=== PATIENT | male | born 1940 | race Caucasian/White ===

== ENCOUNTER 2019-08-27 13:46 | Emergency (ER) | payer MEDICARE, OTHER, SELFPAY ==
[2019-08-27 13:46] VITALS: BP 156/91; PULSE 97; RESP 18; TEMP 36.5; O2SAT 93; BMI 31.3
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
[2019-08-27 15:53] VITALS: PULSE 86; RESP 14; O2SAT 99
== END 2019-08-27 15:53 | disposition home or self-care (01) ==
PROVIDERS: Emergency Provider Emergency Medicine; Family Provider Internal Medicine; PCP Internal Medicine
DX: T20.29XA Burn of second degree of multiple sites of head, face, and neck, initial encounter (principal); T23.261A Burn of second degree of back of right hand, initial encounter; T23.262A Burn of second degree of back of left hand, initial encounter; T31.0 Burns involving less than 10% of body surface; X08.8XXA Exposure to other specified smoke, fire and flames, initial encounter; Y93.89 Activity, other specified
CPT/HCPCS: 90471; 99282; J1670

== ENCOUNTER → 2020-04-21 09:47 | Outpatient (CLI) | payer MEDICARE, OTHER, SELFPAY ==
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
== END ==
PROVIDERS: PCP Internal Medicine; Referring Provider Internal Medicine; Visit Provider Internal Medicine
DX: M25.561 Pain in right knee (principal)
CPT/HCPCS: 76882

== ENCOUNTER 2020-12-08 11:12 | Outpatient (RCR) | payer MEDICARE, SELFPAY ==
[2020-07-08 08:41] VITALS: BMI 31.3
== END 2020-12-08 23:59 ==
LOC: IMMUN 11:12
PROVIDERS: PCP Internal Medicine; Visit Provider Family Medicine
DX: Z23 Encounter for immunization (principal)
CPT/HCPCS: 0011A; 0012A

== ENCOUNTER → 2021-01-19 08:00 | Outpatient (CLI) | payer MEDICARE, OTHER, SELFPAY ==
[2021-01-13 08:40] VITALS: BMI 31.3
[2021-01-19 12:25] LABS: Absolute Lymphocyte Count 1.82 X10^3/uL (0.83-4.51); Absolute Neutrophil Count 2.9 X10^3/uL (2.0-7.7); Basophil# 0.03 X10^3/uL; Basophil% 0.6 % (0-1); Eosinophil# 0.12 X10^3/uL; Eosinophils% 2.3 % (0-5); Hematocrit 43.4 % (40-54); Hemoglobin 13.7 g/dL (13.0-16.5); Lymphocyte # 1.82 X10^3/ul (4.0); Lymphocyte % 34.3 % (19-41); Mean Corp Hgb Conc 31.6 g/dL (32-36); Mean Corpuscular Hgb 29.3 pg (27.0-32.0); Mean Corpuscular Volume 92.9 fL (80-94); Mean Platelet Vol. 10.4 fl (6.2-12.0); Monocyte# 0.42 X10^3/uL; Monocyte% 7.9 % (0-10); NRBC Flagged by Analyzer 0 % (0-5); Neutrophil # 2.89 X10^3/uL (2.7-7.7); Neutrophil % 54.3 % (47-70); Platelet Count 233 K/mm3 (150-450); RBC Distribution Width CV 13.1 % (11.6-14.6); RBC Distribution Width SD 44.8 fl (35.1-43.9); Red Blood Count 4.67 M/mm3 (4.6-6.2); White Blood Count 5.3 K/mm3 (4.4-11.0)
[2021-01-19 12:55] LABS: ALB/GLOB Ratio 1.2 RATIO (0.9-2.4); AST(SGOT) 27 U/L (15-37); Alanine Aminotransfer ALT/SGPT 32 U/L (16-61); Albumin, Serum 3.7 g/dL (3.2-5.0); Alkaline Phosphatase 97 U/L (45-117); Anion Gap 7 (5-15); BUN 19 mg/dL (7-18); BUN/Creat Ratio 19.4 RATIO (10-20); Calcium,Total 8.7 mg/dL (8.5-10.1); Chloride 103 mmol/L (98-107); Cholesterol 179 mg/dL (200); Creatinine, Serum 0.98 mg/dL (0.70-1.30); EST Glomerular Filtration Rate 78 mL/min (>60); Est Glom Filt Rate - Afr Amer 95 mL/min (>60); Globulin 3.2 g/dL (2.2-4.2); Glucose 97 mg/dL (74-106); High Density Lipoprotein 64 mg/dL; PSA,Total - Annual Screen 1.48 ng/mL (0.00-4.00); Potassium 4.1 mmol/L (3.5-5.1); Protein, Total 6.9 g/dL (6.4-8.2); Sodium Level 137 mmol/L (136-145); Thyroid Stim Hormone (TSH) 1.38 uIU/mL (0.358-3.74); Triglycerides 66 mg/dL; Very Low Density Lipoprotein 13 mg/dL (5-40)
[2021-01-19 13:10] LABS: Vitamin D,25 Hydroxy 16.9 ng/mL
[2021-01-19 13:27] LABS: Hemoglobin A1c 5.6 % (3.8-5.6)
== END ==
PROVIDERS: PCP Internal Medicine; Visit Provider Internal Medicine
DX: E55.9 Vitamin D deficiency, unspecified (principal); I10 Essential (primary) hypertension; M17.12 Unilateral primary osteoarthritis, left knee; R73.9 Hyperglycemia, unspecified; Z12.5 Encounter for screening for malignant neoplasm of prostate
CPT/HCPCS: 36415; 80053; 80061; 82306; 83036; 84153; 84443; 85025; G0103

== ENCOUNTER 2021-12-15 09:46 | Outpatient (CLI) | payer MEDICARE, OTHER, SELFPAY ==
[2021-12-15 12:25] LABS: Absolute Lymphocyte Count 1.83 X10^3/uL (0.83-4.51); Absolute Neutrophil Count 3.2 X10^3/uL (2.0-7.7); Basophil# 0.04 X10^3/uL; Basophil% 0.7 % (0-1); Eosinophil# 0.25 X10^3/uL; Eosinophils% 4.3 % (0-5); Hemoglobin 13.3 g/dL (13.0-16.5); Lymphocyte # 1.83 X10^3/ul (0.83-4.51); Lymphocyte % 31.8 % (19-41); Mean Corp Hgb Conc 31.7 g/dL (32-36); Mean Corpuscular Hgb 29.2 pg (27.0-32.0); Mean Corpuscular Volume 92.3 fL (80-94); Mean Platelet Vol. 10.7 fl (6.2-12.0); Monocyte# 0.46 X10^3/uL; NRBC Flagged by Analyzer 0 % (0-5); Neutrophil # 3.15 X10^3/uL (2.7-7.7); Neutrophil % 54.7 % (47-70); Platelet Count 209 K/mm3 (150-450); RBC Distribution Width CV 12.6 % (11.6-14.6); RBC Distribution Width SD 43.3 fl (35.1-43.9); Red Blood Count 4.55 M/mm3 (4.6-6.2); White Blood Count 5.8 K/mm3 (4.4-11.0)
[2021-12-15 13:07] LABS: Vitamin D,25 Hydroxy 21.5 ng/mL
[2021-12-15 13:14] LABS: ALB/GLOB Ratio 1.2 RATIO (0.9-2.4); AST(SGOT) 20 U/L (15-37); Alanine Aminotransfer ALT/SGPT 25 U/L (16-61); Albumin, Serum 3.7 g/dL (3.2-5.0); Alkaline Phosphatase 96 U/L (45-117); Anion Gap 5 (5-15); BUN 23 mg/dL (7-18); Calcium,Total 8.6 mg/dL (8.5-10.1); Chloride 105 mmol/L (98-107); Cholesterol 156 mg/dL (200); Creatinine, Serum 0.96 mg/dL (0.70-1.30); EST Glomerular Filtration Rate 80 mL/min (>60); Est Glom Filt Rate - Afr Amer 97 mL/min (>60); Glucose 86 mg/dL (74-106); High Density Lipoprotein 53 mg/dL; Potassium 4.1 mmol/L (3.5-5.1); Protein, Total 6.7 g/dL (6.4-8.2); Sodium Level 138 mmol/L (136-145); Triglycerides 131 mg/dL; Very Low Density Lipoprotein 26 mg/dL (5-40)
== END 2021-12-15 23:59 | disposition home or self-care (01) ==
LOC: BIMLAB 09:47
PROVIDERS: PCP Internal Medicine; Referring Provider Internal Medicine; Visit Provider Internal Medicine
DX: E55.9 Vitamin D deficiency, unspecified (principal); I10 Essential (primary) hypertension
CPT/HCPCS: 36415; 80053; 80061; 82306; 85025

== ENCOUNTER 2022-01-06 12:41 | Outpatient (CLI) | payer MEDICARE, OTHER, SELFPAY ==
--- NOTE | 2022-01-06 12:42 | ECHOCS_ITS ---
Reason For Study: Pre Op Procedure This was a 2D Doppler, Color Flow transthoracic echocardiogram. The study was technically difficult. Contrast injection was performed. Bubble study performed. Exam performed in department. Left Ventricle Normal LV size. The estimated ejection fraction is 55 %. Stage 1 diastolic dysfunction. No regional wall motion abnormalities noted. Right Ventricle Normal RV size. Normal systolic function. Atria Normal left atrium. Normal right atrium. Mitral Valve Normal mitral valve. Tricuspid Valve Normal tricuspid valve. Aortic Valve Trisinus/trileaflet aortic valve. Mild focal aortic valve calcification. Peak aortic valve gradient 27 mmHg. Mean aortic valve gradient 13 mmHg. Mild (1+) aortic valve insufficiency. Pulmonic Valve Normal pulmonic valve. Great Vessels Mild to moderately dilated aortic root. The pulmonary artery is normal size. Normal inferior vena cava. Pericardium/Pleural No pericardial effusion. Medication 22 gauge I.V. with prn adaptor inserted into right arm. Diluted definity 3ml given slow IV push to enhance endocardial definition. Performed a rapid injection of agitated mix of 9 cc saline and 1cc air to assess for atrial septal defect. MMode/2D Measurements & Calculations LVIDd: 4.6 cm IVSd: 1.0 cm LVOT diam: 2.4 cm LVIDs: 3.3 cm LVPWd: 1.0 cm FS: 28.2 % LVOT area: 4.4 cm2 Ao root diam: 4.2 cm LAV(MOD-bp): 37.5 ml LA A4 area: 13.4 cm2 LAV(MOD-bp) Indexed: 18.0 ml/m2 LAV(MOD-sp2): 41.4 ml LAV(MOD-sp4): 29.3 ml RA A4 area: 15.6 cm2 Time Measurements MV dec time: 0.47 sec Doppler Measurements & Calculations MV E max rober: 46.1 cm/sec Lat Peak E' Rober: 7.6 cm/sec Med Peak E' Rober: 5.0 cm/sec MV A max rober: 82.7 cm/sec E/E' lat: 6.0 E/E' med: 9.1 MV E/A: 0.56 MV V2 max: 91.5 cm/sec MV P1/2t max rober: 68.6 cm/sec Ao V2 max: 258.9 cm/sec MV max P.3 mmHg MV P1/2t: 115.1 msec Ao max P.8 mmHg MV V2 mean: 48.8 cm/sec MV dec slope: 174.6 cm/sec2 Ao V2 mean: 166.6 cm/sec MV mean P.1 mmHg Ao mean P.8 mmHg MV V2 VTI: 33.4 cm MVA(P1/2t): 1.9 cm2 Ao V2 VTI: 57.5 cm MVA(VTI): 3.5 cm2 YESI(I,D): 2.0 cm2 YESI(V,D): 1.7 cm2 AI max rober: 364.7 cm/sec LV V1 max: 98.9 cm/sec SV(LVOT): 116.0 ml AI max P.3 mmHg LV V1 max P.9 mmHg AI dec slope: 178.5 cm/sec2 LV V1 mean P.0 mmHg AI P1/2t: 598.5 msec LV V1 mean: 66.2 cm/sec LV V1 VTI: 26.1 cm PA V2 max: 107.9 cm/sec ECHO/Echo Complete W/ Contrast Interpretation Summary Normal LV size. The estimated ejection fraction is 55 %. Stage 1 diastolic dysfunction. Mean aortic valve gradient 13 mmHg. Mild (1+) aortic valve insufficiency. Contrast injection was performed. Ordering Physician: Birgit Yanes Referring Physician: Birgit Yanes Performed By: Timothy Barnes RCS
== END 2022-01-06 23:59 | disposition home or self-care (01) ==
LOC: CVS 12:42
PROVIDERS: PCP Internal Medicine; Referring Provider Internal Medicine; Visit Provider Internal Medicine
DX: Z01.818 Encounter for other preprocedural examination (principal)
CPT/HCPCS: 93306; Q9957; A4216; C8929

== ENCOUNTER → 2022-02-26 | Outpatient (CLI) | payer MEDICARE, OTHER, SELFPAY ==
[2022-02-26 12:19] LABS: Absolute Lymphocyte Count 1.94 X10^3/uL (0.83-4.51); Basophil# 0.04 X10^3/uL; Basophil% 0.6 % (0-1); Color, Urine Yellow (Yellow); Eosinophils% 4.4 % (0-5); Glucose, Dipstick Normal (Normal); Hematocrit 42.7 % (40-54); Hemoglobin 13.8 g/dL (13.0-16.5); Ketone-Dipstick Negative (Negative); Leukocyte Esterase-Dipstick Negative /ul (Negative); Lymphocyte # 1.94 X10^3/ul (0.83-4.51); Lymphocyte % 28.2 % (19-41); Mean Corp Hgb Conc 32.3 g/dL (32-36); Mean Corpuscular Hgb 29.2 pg (27.0-32.0); Mean Corpuscular Volume 90.5 fL (80-94); Mean Platelet Vol. 10.3 fl (6.2-12.0); Monocyte% 8.7 % (0-10); NRBC Flagged by Analyzer 0 % (0-5); Neutrophil # 3.96 X10^3/uL (2.7-7.7); Neutrophil % 57.7 % (47-70); Nitrite-Dipstick Negative (Negative); Occult Blood-Urine Negative /ul (Negative); Platelet Count 201 K/mm3 (150-450); Protein-Dipstick Negative (Negative); RBC Distribution Width CV 12.6 % (11.6-14.6); RBC Distribution Width SD 41.8 fl (35.1-43.9); Red Blood Count 4.72 M/mm3 (4.6-6.2); Urine Bilirubin Dipstick Negative (Negative); Urine Clarity Clear (Clear); Urine Urobilinogen Normal (Normal); Urine pH 6.5 (5.0 - 8.0); White Blood Count 6.9 K/mm3 (4.4-11.0)
[2022-02-26 12:48] LABS: Anion Gap 6 (5-15); BUN 20 mg/dL (7-18); BUN/Creat Ratio 20.6 RATIO (10-20); Calcium,Total 8.9 mg/dL (8.5-10.1); Chloride 104 mmol/L (98-107); Creatinine, Serum 0.97 mg/dL (0.70-1.30); EST Glomerular Filtration Rate 79 mL/min (>60); Est Glom Filt Rate - Afr Amer 95 mL/min (>60); Glucose 104 mg/dL (74-106); Potassium 3.8 mmol/L (3.5-5.1); Sodium Level 137 mmol/L (136-145)
== END | disposition home or self-care (01) ==
LOC: MTLAB 10:56
PROVIDERS: PCP Internal Medicine; Referring Provider Physician Assistant Surgical; Visit Provider Physician Assistant Surgical
DX: Z01.818 Encounter for other preprocedural examination (principal)
CPT/HCPCS: 36415; 80048; 81002; 85025

== ENCOUNTER → 2022-03-12 | Outpatient (CLI) | payer MEDICARE, OTHER, SELFPAY ==
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
== END | disposition home or self-care (01) ==
PROVIDERS: PCP Internal Medicine; Visit Provider Orthopaedic Surgery
DX: M17.11 Unilateral primary osteoarthritis, right knee (principal)
CPT/HCPCS: 88305; 88311

== ENCOUNTER → 2022-08-12 | Outpatient (CLI) | payer MEDICARE, OTHER, SELFPAY ==
--- NOTE | 2022-08-12 09:25 | RAD_ITS ---
EXAM: XR CHEST, 2 VIEWS CLINICAL INDICATION: PRE PROCEDURE TECHNIQUE: Frontal and lateral views of the chest. This report was created using [employer] report generation technology. COMPARISON: None. FINDINGS: LUNGS AND PLEURAL SPACES: Suspect small calcified granuloma at the left upper lobe. No consolidation or edema. No pneumothorax. No effusion. HEART: Unremarkable. Cardiac silhouette not enlarged. MEDIASTINUM: Central airways and mediastinal contour are unremarkable. BONES/JOINTS: Degenerative changes of the spine. SOFT TISSUES: Unremarkable. VASCULATURE: Tortuous thoracic aorta versus distal thoracic aortic aneurysm. Recommend CT for further clarification. RAD/Chest PA and Lateral IMPRESSION: No acute findings in the chest. Tortuous thoracic aorta versus distal thoracic aortic aneurysm. Recommend CT for further clarification. Electronically Signed: Jai Rebolledo MD at 1:45 EDT ,
== END | disposition home or self-care (01) ==
LOC: PSN 09:21
PROVIDERS: PCP Internal Medicine; Visit Provider Orthopaedic Surgery
DX: Z01.811 Encounter for preprocedural respiratory examination (principal)
CPT/HCPCS: 71046; 93005

== ENCOUNTER 2022-09-02 11:22 | Emergency (ER) | payer MEDICARE, OTHER, SELFPAY ==
[2022-09-02 11:23] VITALS: BP 156/91; PULSE 77; RESP 18; TEMP 36.6; O2SAT 98; BMI 30.2
[2022-09-02 11:25] VITALS: BP 156/91; PULSE 77; RESP 18; TEMP 36.6; O2SAT 98
--- NOTE | 2022-09-02 11:39 | EKG12_ITS ---
Test Reason : WEAKNESS Blood Pressure : / mmHG Vent. Rate : 077 BPM Atrial Rate : 077 BPM P-R Int : 184 ms QRS Dur : 106 ms QT Int : 386 ms P-R-T Axes : 036 -31 056 degrees QTc Int : 436 ms Normal sinus rhythm Left axis deviation Abnormal ECG Confirmed by RADHA CHARLES, JAQUELIN ([id number]), content editor KAREN MEDINA ([id number]) on 09/06/2022 11:52:39 AM Referred By: Confirmed By:JAQUELIN GARCIA MD
--- NOTE | 2022-09-02 11:41 | CT_ITS ---
EXAM: CT ANGIOGRAPHY CHEST, ABDOMEN AND PELVIS WITH INTRAVENOUS CONTRAST CLINICAL INDICATION: chest pain. RECENT COVID TECHNIQUE: Helically acquired angiography images were obtained of the chest, abdomen and pelvis with intravenous contrast. This CT exam was performed using one or more of the following dose reduction techniques: automated exposure control, adjustment of the mA and/or kV according to patient size, and/or use of iterative reconstruction technique. This report was created using [employer] report generation technology. MIP reconstructed images were created and reviewed. CONTRAST: IV 75mL [id number] COMPARISON: None. FINDINGS: VASCULATURE: AORTA: Ascending thoracic aorta measures 4.5 cm in maximum diameter tapering to 2.9 cm diameter the descending thoracic aorta. No aortic dissection. PULMONARY ARTERIES: Normal. Normal in caliber. No obvious central pulmonary embolism although this study was not performed with the pulmonary embolism protocol. GREAT VESSELS OF AORTIC ARCH: Normal. Normal in caliber. No dissection. CELIAC TRUNK AND MESENTERIC ARTERIES: No acute findings. No occlusion or significant stenosis. No dissection. RENAL ARTERIES: No acute findings. No occlusion or significant stenosis. No dissection. ILIAC ARTERIES: No acute findings. No occlusion or significant stenosis. No dissection. CHEST: LUNGS AND PLEURAL SPACES: Normal. No mass. No consolidation or edema. No pleural effusion or thickening. No pneumothorax. HEART: Normal. Heart size is normal. No pericardial effusion. MEDIASTINUM: Normal. No mediastinal or hilar adenopathy. Esophagus is unremarkable. No hiatal hernia. THYROID: Normal. No thyroid lesions. ABDOMEN: LIVER: A 2 cm enhancing lesion within hepatic segment 6 suggestive of a hemangioma. GALLBLADDER AND BILE DUCTS: Pericholecystic fluid noted of uncertain significance. Correlate for clinical presentation of acute cholecystitis. No intra- or extrahepatic biliary ductal dilation. PANCREAS: Normal. No focal cystic or solid mass. SPLEEN: Normal. Normal size without focal cystic or solid mass. ADRENALS: Normal. No nodules. KIDNEYS AND URETERS: Normal. Normal renal size and position. No hydronephrosis. STOMACH AND BOWEL: 2 cm duodenal diverticulum is noted. Diverticulosis of the colon noted without evidence of acute diverticulitis. No stomach or bowel distention. PELVIS: APPENDIX: No evidence of acute appendicitis. BLADDER: Mild anterior wall thickening of the urinary bladder of uncertain significance. REPRODUCTIVE: Prostate gland is enlarged. CHEST, ABDOMEN and PELVIS: INTRAPERITONEAL SPACE: Normal. No ascites or other fluid collection. No free air. BONES/JOINTS: Normal. No suspicious lytic or blastic abnormality. SOFT TISSUES: Normal. No discrete abdominal or pelvic wall hernia. LYMPH NODES: Normal. No enlarged lymph nodes. CT/CTA Chst, Abd, Pel W and/or WO IMPRESSION: 1. 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 2. Pericholecystic fluid of uncertain significance. 3. Diverticulosis coli. 4. Prostatomegaly. 5. Additional nonemergent findings described above. Electronically Signed: Morgan Strickland MD at 13:31 EST ,
[2022-09-02 11:56] LABS: Absolute Lymphocyte Count 1.96 X10^3/uL (0.83-4.51); Absolute Neutrophil Count 6.3 X10^3/uL (2.0-7.7); Basophil# 0.03 X10^3/uL; Basophil% 0.3 % (0-1); Eosinophil# 0.08 X10^3/uL; Eosinophils% 0.8 % (0-5); Hemoglobin 13.5 g/dL (13.0-16.5); Lymphocyte # 1.96 X10^3/ul (0.83-4.51); Lymphocyte % 20.7 % (19-41); Mean Corp Hgb Conc 32.9 g/dL (32-36); Mean Platelet Vol. 9.9 fl (6.2-12.0); Monocyte# 0.98 X10^3/uL; Monocyte% 10.4 % (0-10); NRBC Flagged by Analyzer 0 % (0-5); Neutrophil # 6.28 X10^3/uL (2.7-7.7); Neutrophil % 66.5 % (47-70); Platelet Count 254 K/mm3 (150-450); RBC Distribution Width CV 12.8 % (11.6-14.6); RBC Distribution Width SD 41.1 fl (35.1-43.9); Red Blood Count 4.66 M/mm3 (4.6-6.2); White Blood Count 9.5 K/mm3 (4.4-11.0)
--- NOTE | 2022-09-02 12:00 | RAD_ITS ---
EXAM: XR CHEST, 1 VIEW CLINICAL INDICATION: chest pain TECHNIQUE: Frontal view of the chest. This report was created using [employer] report generation technology. COMPARISON: XR Chest dated 08/12/2022 FINDINGS: LUNGS AND PLEURAL SPACES: Linear atelectasis within the right middle lobe. Lungs are otherwise clear. No pneumothorax. No effusion. HEART: Normal heart size. MEDIASTINUM: No mediastinal or hilar mass. BONES/JOINTS: No acute abnormality. SOFT TISSUES: Normal. RAD/Chest 1 View (Portable) IMPRESSION: No acute cardiopulmonary abnormality. Electronically Signed: Morgan Strikcland MD at 12:28 EST ,
[2022-09-02 12:11] LABS: Anion Gap 8 (5-15); BUN 14 mg/dL (7-18); BUN/Creat Ratio 17.1 RATIO (10-20); Chloride 98 mmol/L (98-107); Creatinine, Serum 0.82 mg/dL (0.70-1.30); EST Glomerular Filtration Rate 96 mL/min (>60); Est Glom Filt Rate - Afr Amer 116 mL/min (>60); Estimated Creatinine Clearance 69.45 ml/min; Glucose 113 mg/dL (74-106); Potassium 4.1 mmol/L (3.5-5.1); Sodium Level 132 mmol/L (136-145); Troponin-I HS 9 pg/mL (3.0-78.0)
--- NOTE | 2022-09-02 12:25 | ED.VIS.CHEST ---
HPI History of Present Illness Chief Complaint: Weakness Narrative Narrative: 82-year-old male presenting with generalized weakness. He states he was recently treated with a full course of Paxlovid due to having COVID-19 with the onset about 10 days ago. He states he felt like he was getting better and after he finished the course he started to feel generally weak. He complains that he is tired. He is able to ambulate and get around. He has not any falls. He does not have any fevers, chills, body aches. He does not have any nausea or vomiting. He does state that he has had some chest tightness across the chest which feels like a dull ache. It does not feel like pressure or squeezing. It does not feel like sharp pleuritic pain. He is not coughing. He also states that sometimes when he is ambulating he feels short of breath. He has a home pulse oximeter which he states ranges from 91-98 at home. He states is while he sitting. He states that he recently had a chest x-ray as an outpatient in order to medically clear him for knee surgery through Dr. Michael Brandt and he was told there was something abnormal on it and is not sure what it was. He was supposed to follow-up with his PCP to have the CT scan prior to surgery and this is still pending. He does note that he is not have any cardiac issues in the past. He does have high blood pressure and takes amlodipine and lisinopril. [facility] Medical History COVID-19 Essential hypertension Hernia, inguinal, bilateral Home Medications aspirin 81 mg chewable tablet 40.5 mg PO DAILY 08/27/19 [History Last Taken Unknown] glucosamine sulfate 2KCl 1,000 mg tablet (Glucosamine Relief) 1,000 mg PO DAILY 07/08/20 [History Last Taken Unknown] turmeric 400 mg capsule mg PO 10/01/21 [History Last Taken Unknown] meloxicam 7.5 mg tablet 15 mg PO DAILY PRN Arthritis #60 tabs 10/16/21 [Rx Last Taken Unknown] amlodipine 5 mg tablet 5 mg PO DAILY #90 tabs 05/06/22 [Rx Last Taken Unknown] lisinopril 5 mg tablet 5 mg PO DAILY #90 tabs 05/06/22 [Rx Last Taken Unknown] nirmatrelvir 300 mg (150 mg x2)-ritonavir 100 mg tablet,dose pack(EUA) (Paxlovid) See Rx Instructions PO .COMPLEX #30 tabs 08/24/22 [Rx Last Taken Unknown] Allergy/AdvReac Type Severity Reaction Status Date / Time No Known Allergies Allergy Verified 09/02/22 11:23 Family History Mother Hypertension Father Cancer Brother Cancer Sister Hypertension Surgical History S/P appendectomy Social History Smoking Status: Former smoker quit date: 10/10/00 Tobacco: How many years used: 40 alcohol intake: current alcohol intake frequency: a few times a month substance use type: does not use ROS ROS ED Constitutional Constitutional ED: Reports other Details: Generalized weakness ; Denies chills or fever(s) Eyes Eyes: Denies blurry vision or change in vision ENT ENT ED: Denies rhinorrhea or sore throat Cardiovascular Cardiovascular: Reports as per HPI Respiratory/Chest Respiratory/Chest: Reports dyspnea and dyspnea on exertion; Denies cough Gastrointestinal Gastrointestinal: Denies abdominal pain, nausea or vomiting Genitourinary Genitourinary ED: Denies dysuria or hematuria Musculoskeletal Musculoskeletal: Denies arthralgias or myalgias Integumentary Denies abscess or Abrasions Neurologic Neurologic: Denies headache(s) or paresthesias Psychiatric Psychiatric: Denies depression EXAM Physical Exam Const Vital Signs: 09/02/22 11:23 09/02/22 11:25 09/02/22 11:25 Temperature 97.9 F 97.9 F Temperature Source Temporal Temporal Pulse Rate 77 77 Respiratory Rate 18 18 Respiratory Pattern Normal Blood Pressure 156/91 H 156/91 H Blood Pressure Mean 112 112 Pulse Ox 98 98 Oxygen Delivery Method Room Air Room Air 09/02/22 13:17 09/02/22 13:17 Temperature Temperature Source Pulse Rate 79 Respiratory Rate 16 Respiratory Pattern Blood Pressure 131/87 H Blood Pressure Mean 101 Pulse Ox 96 Oxygen Delivery Method Room Air Room Air MDM MDM MDM Narrative Medical decision making narrative: Patient presenting for follow-up after having COVID. He describes generalized weakness and some mild shortness of breath. He is no longer having fevers, chills. He is eating and drinking well. He is making normal urine and stool. He did report to me that he is been having some chest tightness for a couple of days which has been fairly constant. He describes it as a dull ache. No pressure or squeezing. No sharp pleuritic pain. He reported to me that he had an abnormal chest x-ray recently when he was sent for preop chest x-ray for clearance for his knee surgery. I reviewed the medical record and this showed that he had an aortic aneurysm and this is why he was to have a follow-up CT scan of his chest. Although he is having some chest pain today he is not having ripping tearing pain. He is not describing pain from a PE either. This is very mild and he requests nothing for pain. I obtain basic lab work and his CBC and BMP were unremarkable with exception of a sodium 132. His LFTs show a slight elevation in AST, ALT, alkaline phosphatase which is nonspecific. His bilirubin is normal. This possibly elevated due to having COVID recently. High-sensitivity troponin is 9 after having pain for couple of days. No believe needs a repeat troponin. I think clinically is low suspicion for having a PE, but since he has an aortic aneurysm I will obtain a CT of the chest abdomen pelvis which shows a 4.5 cm thoracic ascending aortic aneurysm. No evidence of infiltrate or PE. It does mention possible pericholecystic fluid however the patient not having any abdominal pain or right upper quadrant pain. I do not believe he needs an ultrasound. I spoke with Dr. Soni regarding this and he states the patient will likely not need any intervention unless this gets to about 5 to 5-1/2 cm. He states that he can follow-up with him to monitor this and get him to cardiothoracic surgery as needed in the future. Patient was amenable this. He was counseled on all findings. Impression: 1. Generalized weakness 2. 4.5 cm aortic aneurysm 3. Chest pain 4. Elevated LFTs Lab Data Attestation: I reviewed the patient's lab results. Labs: Laboratory Results - last 24 hr 09/02/22 09/02/22 09/02/22 11:48 11:48 13:40 WBC 9.5 RBC 4.66 Hgb 13.5 Hct 41.0 MCV 88.0 MCH 29.0 MCHC 32.9 RDW Std Deviation 41.1 RDW Coeff of Tracey 12.8 Plt Count 254 MPV 9.9 Immature Gran % (Auto) 1.300 H Neut % (Auto) 66.5 Lymph % (Auto) 20.7 Luce % (Auto) 10.4 H Eos % (Auto) 0.8 Baso % (Auto) 0.3 Absolute Neuts (auto) 6.3 Absolute Lymphs (auto) 1.96 Nucleated RBC % 0 Sodium 132 L Potassium 4.1 Chloride 98 Carbon Dioxide 26.0 Anion Gap 8 BUN 14 Creatinine 0.82 Estim Creat Clear Calc 69.45 Est GFR (MDRD) Af Amer 116 Est GFR (MDRD) Non-Af 96 BUN/Creatinine Ratio 17.1 Glucose 113 H Calcium 9.0 Total Bilirubin 0.50 Direct Bilirubin 0.26 AST 41 H ALT 65 H Alkaline Phosphatase 137 H Troponin I High Sens 9 Total Protein 6.6 Albumin 3.2 Globulin 3.4 Lipase 101 Radiography Diagnostic Testing: Clinical Impression(s) from Imaging Studies Chest/Abdomen/Pelvis CTA 09/02/22 11:41 IMPRESSION: 1. 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 2. Pericholecystic fluid of uncertain significance. 3. Diverticulosis coli. 4. Prostatomegaly. 5. Additional nonemergent findings described above. Electronically Signed: Morgan Strickland MD at 13:31 EST Reading Location ID and State: Counts include 234 beds at the [facility] / [place] Tel , Service support , Chest X-Ray 09/02/22 12:00 IMPRESSION: No acute cardiopulmonary abnormality. Electronically Signed: Morgan Strickland MD at 12:28 EST , Discharge Plan Triage Chief Complaint: Weakness ED Provider: Constantino Silva Dx/Rx/DC Orders Instructions: ED Chest Pain, Noncardiac, ED Weakness (Uncertain Cause), Aneurisma de aorta tor?cica Prescriptions: No Action glucosamine sulfate 2KCl [Glucosamine Relief] 1,000 mg tablet 1,000 mg PO DAILY Rx Instructions: administer with meals turmeric 400 mg capsule PO Paxlovid (EUA) 300 mg (150 mg x 2)-100 mg tablets,dose pack See Rx Instructions PO .COMPLEX Qty: 30 0RF Rx Instructions: take TWO 150 mg tablets of nirmatrelvir with ONE 100 mg tablet of ritonavir twice daily for 5 days PO aspirin 81 MG tablet,chewable 40.5 mg PO DAILY meloxicam 7.5 mg tablet 15 mg PO DAILY PRN (Reason: Arthritis) Qty: 60 1RF lisinopril 5 mg tablet 5 mg PO DAILY Qty: 90 3RF amlodipine 5 mg tablet 5 mg PO DAILY Qty: 90 3RF Primary Care Provider: Birgit Yanes Referrals: Colin Soni MD [Med Staff - Active Staff] - 3-5 Days Birgit Yanes MD [Primary Care Provider] - Disposition Disposition: Home, Self Care
[2022-09-02 12:43] VITALS: O2SAT 100
[2022-09-02 13:17] VITALS: BP 131/87; PULSE 79; RESP 16; O2SAT 96
[2022-09-02 14:03] LABS: AST(SGOT) 41 U/L (15-37); Alanine Aminotransfer ALT/SGPT 65 U/L (16-61); Albumin, Serum 3.2 g/dL (3.2-5.0); Alkaline Phosphatase 137 U/L (45-117); Bilirubin, Direct 0.26 mg/dL (0.00-0.30); Globulin 3.4 g/dL (2.2-4.2); Lipase 101 U/L (73-393); Protein, Total 6.6 g/dL (6.4-8.2)
[2022-09-02 15:00] VITALS: BP 127/72; PULSE 74; RESP 20; O2SAT 95
== END 2022-09-02 15:10 | disposition home or self-care (01) ==
PROVIDERS: Emergency Provider Student in an Organized Health Care Education/Training Program; PCP Internal Medicine; Visit Provider Student in an Organized Health Care Education/Training Program
DX: R53.1 Weakness (principal); I71.21 Aneurysm of the ascending aorta, without rupture; R07.9 Chest pain, unspecified; R79.89 Other specified abnormal findings of blood chemistry; Z86.16 Personal history of COVID-19; Z87.891 Personal history of nicotine dependence
CPT/HCPCS: 71045; 71275; 74174; 80048; 80076; 83690; 84484; 85025; 93005; 99284; Q9967; A4216

== ENCOUNTER → 2022-09-08 | Outpatient (CLI) | payer MEDICARE, OTHER, SELFPAY ==
[2022-09-08 16:50] LABS: Absolute Lymphocyte Count 2.63 X10^3/uL (0.83-4.51); Absolute Neutrophil Count 4.5 X10^3/uL (2.0-7.7); Basophil# 0.06 X10^3/uL; Basophil% 0.7 % (0-1); Eosinophil# 0.21 X10^3/uL; Eosinophils% 2.5 % (0-5); Hematocrit 43.8 % (40-54); Hemoglobin 13.8 g/dL (13.0-16.5); Lymphocyte # 2.63 X10^3/ul (0.83-4.51); Lymphocyte % 31.8 % (19-41); Mean Corp Hgb Conc 31.5 g/dL (32-36); Mean Corpuscular Hgb 28.5 pg (27.0-32.0); Mean Corpuscular Volume 90.3 fL (80-94); Mean Platelet Vol. 9.7 fl (6.2-12.0); Monocyte# 0.75 X10^3/uL; Monocyte% 9.1 % (0-10); NRBC Flagged by Analyzer 0 % (0-5); Neutrophil % 54.6 % (47-70); Platelet Count 356 K/mm3 (150-450); RBC Distribution Width CV 12.8 % (11.6-14.6); RBC Distribution Width SD 42.1 fl (35.1-43.9); Red Blood Count 4.85 M/mm3 (4.6-6.2); White Blood Count 8.3 K/mm3 (4.4-11.0)
[2022-09-08 17:41] LABS: Vitamin D,25 Hydroxy 35.1 ng/mL
[2022-09-08 17:58] LABS: ALB/GLOB Ratio 1.2 RATIO (0.9-2.4); AST(SGOT) 27 U/L (15-37); Alanine Aminotransfer ALT/SGPT 57 U/L (16-61); Albumin, Serum 3.8 g/dL (3.2-5.0); Alkaline Phosphatase 139 U/L (45-117); Anion Gap 8 (5-15); BUN 19 mg/dL (7-18); BUN/Creat Ratio 20.9 RATIO (10-20); Calcium,Total 8.7 mg/dL (8.5-10.1); Chloride 100 mmol/L (98-107); Creatinine, Serum 0.91 mg/dL (0.70-1.30); EST Glomerular Filtration Rate 85 mL/min (>60); Est Glom Filt Rate - Afr Amer 102 mL/min (>60); Globulin 3.3 g/dL (2.2-4.2); Glucose 104 mg/dL (74-106); Potassium 4.1 mmol/L (3.5-5.1); Protein, Total 7.1 g/dL (6.4-8.2); Sodium Level 135 mmol/L (136-145); Thyroid Stim Hormone (TSH) 1.59 uIU/mL (0.358-3.74)
== END | disposition home or self-care (01) ==
LOC: LAB 16:10
PROVIDERS: PCP Internal Medicine; Visit Provider Internal Medicine
DX: E55.9 Vitamin D deficiency, unspecified (principal); I10 Essential (primary) hypertension; R79.89 Other specified abnormal findings of blood chemistry; Z12.5 Encounter for screening for malignant neoplasm of prostate
CPT/HCPCS: 36415; 80053; 82306; 84153; 84443; 85025; G0103

== ENCOUNTER → 2022-09-18 | Outpatient (CLI) | payer MEDICARE, OTHER, SELFPAY ==
[2022-09-16 12:18] LABS: Bacteria 0 SEEN /hpf (None Seen); Mucous, Urine 0 SEEN /hpf (<or=2+); Red Blood Cells-Urine 0 SEEN /hpf (0-5); White Blood Cells 0 SEEN /hpf (0-5)
[2022-09-16 12:55] LABS: Color, Urine Yellow (Yellow); Glucose, Dipstick Normal (Normal); Ketone-Dipstick Negative (Negative); Leukocyte Esterase-Dipstick Negative /ul (Negative); Nitrite-Dipstick Negative (Negative); Occult Blood-Urine Negative /ul (Negative); Protein-Dipstick Negative (Negative); Specific Gravity, Urine 1.015 (1.002-1.030); Urine Bilirubin Dipstick Negative (Negative); Urine Clarity Clear (Clear); Urine Urobilinogen Normal (Normal)
[2022-09-16 13:05] LABS: Squamous Epithelial Cells - UA 0-5 SEEN /hpf (0-5)
--- NOTE | 2022-09-18 11:16 | US_ITS ---
INDICATION: Bladder wall thickening EXAMINATION: Ultrasound US Kidney(s) complete TECHNIQUE: Chapman scale and color doppler images were obtained of the kidneys. COMPARISON: None. FINDINGS: RIGHT KIDNEY: 11.6 x 5.8 x 6.1 cm. The renal cortex measures 1.6 cm. There is no hydronephrosis. No shadowing calculus, focal lesion or perinephric collection is demonstrated. LEFT KIDNEY: 11.1 x 5.9 x 5.9 cm. The renal cortex measures 1.5 cm. There is no hydronephrosis. No shadowing calculus, focal lesion or perinephric collection is demonstrated. URINARY BLADDER: The calculated prevoid bladder volume is 135 cc. The bladder wall measures about 2 mm. Suboptimal evaluation of the bladder wall due to the distended bladder. ADDITIONAL FINDINGS: Prominent heterogeneous prostate with an estimated volume of 43 cc. Correlation with PSA level is recommended. Incidental finding is 0.1 cm cyst in the right lobe of the liver. US/Kidney and Bladder IMPRESSION: 1. No evidence of hydronephrosis. 2. Prominent prostate. 3. Small liver cyst. Electronically Signed: Bill Burger MD at 14:27 EST ,
== END | disposition home or self-care (01) ==
LOC: US 11:13
PROVIDERS: PCP Internal Medicine; Referring Provider Internal Medicine; Visit Provider Internal Medicine
DX: N32.89 Other specified disorders of bladder (principal)
CPT/HCPCS: 76770; 81001

== ENCOUNTER → 2022-12-02 | Outpatient (CLI) | payer MEDICARE, OTHER, SELFPAY ==
[2022-12-02 08:55] LABS: Absolute Lymphocyte Count 2.07 X10^3/uL (0.83-4.51); Basophil# 0.03 X10^3/uL; Basophil% 0.5 % (0-1); Eosinophil# 0.18 X10^3/uL; Eosinophils% 3.1 % (0-5); Hematocrit 42.6 % (40-54); Hemoglobin 13.7 g/dL (13.0-16.5); Lymphocyte # 2.07 X10^3/ul (0.83-4.51); Lymphocyte % 35.8 % (19-41); Mean Corp Hgb Conc 32.2 g/dL (32-36); Mean Corpuscular Volume 90.1 fL (80-94); Mean Platelet Vol. 10.2 fl (6.2-12.0); Monocyte# 0.51 X10^3/uL; Monocyte% 8.8 % (0-10); NRBC Flagged by Analyzer 0 % (0-5); Neutrophil # 2.97 X10^3/uL (2.7-7.7); Neutrophil % 51.5 % (47-70); Platelet Count 197 K/mm3 (150-450); RBC Distribution Width CV 13.1 % (11.6-14.6); Red Blood Count 4.73 M/mm3 (4.6-6.2); White Blood Count 5.8 K/mm3 (4.4-11.0)
[2022-12-02 08:58] LABS: Anion Gap 6 (5-15); BUN 20 mg/dL (7-18); Calcium,Total 8.9 mg/dL (8.5-10.1); Chloride 103 mmol/L (98-107); EST Glomerular Filtration Rate 76 mL/min (>60); Est Glom Filt Rate - Afr Amer 92 mL/min (>60); Glucose 109 mg/dL (74-106); Potassium 3.9 mmol/L (3.5-5.1); Sodium Level 137 mmol/L (136-145)
[2022-12-07 08:29] LABS: Hemoglobin A1c 5.5 % (3.8-5.6)
== END | disposition home or self-care (01) ==
LOC: LAB 07:23
PROVIDERS: PCP Internal Medicine; Referring Provider Physician Assistant; Visit Provider Physician Assistant
DX: Z01.818 Encounter for other preprocedural examination (principal); I10 Essential (primary) hypertension; R73.09 Other abnormal glucose
CPT/HCPCS: 36415; 80048; 83036; 85025

== ENCOUNTER → 2022-12-21 | Outpatient (CLI) | payer MEDICARE, OTHER, SELFPAY ==
--- NOTE | 2022-12-21 | KNEE_PTH ---
PATIENT: ALEXANDRIA MERIDA LOC: [facility] U#:[id number] AGE/SX: 82/M ROOM: RE12/21/[address]: Dr. Michael Brandt MD : 1940 BED: DIS: 12/21/2022 SPEC #: [id number] RECD: 12/21/22 14:47 STATUS: TEENA SON #: [id number] JADA: 12/21/22 00:[address]: Michael Brandt DEPT: SURGICAL PATHOLOGY RECD BY: Harvey Tapia ENTERED: 12/22/22 08:00 SP TYPE: TOTAL KNEE OTHR DR: Dr. Birgit Yanes MD [facility] Tissues: Knee, NOS Procedures: Decalcification bone/plaque Surgery Specimen Level IV HEADER OPERATION: Total left knee arthroplasty PRE-OP DIAGNOSIS: Left knee grade 4 post-traumatic arthritis TISSUE SUBMITTED: Left knee bone and tissue MICROSCOPIC DIAGNOSIS Bone and tissue, left knee, total knee replacement/resection: Pieces of bone with degenerative osteoarthritic changes. Fibroadipose tissue, fibroconnective tissue and reactive synovial tissue. Focal changes consistent with pseudogout. CHRISTIN:clarita 12/27/2022 MICROSCOPIC DESCRIPTION Slides are reviewed. GROSS DESCRIPTION Received is one container designated bone and soft tissue left knee. The specimen consists of multiple fragments of baez-yellow bone measuring in aggregate 11.0 x 10.0 x 3.5 cm. Also in the specimen container are multiple fragments of yellow-white soft tissue measuring in aggregate 8.0 x 8.0 x 2.5 cm. A few of the soft tissue fragments also show chalky, white deposits. A number of bony fragments contain articular surfaces consistent with tibial plateau and femoral condyle and displaying prominent osteophyte formation, eburnation and bone erosion. Invisible Braces Orthodontist sections are submitted in two cassettes as follows: 1 - soft tissue, 2 - bone after decalcification. / CHRISTIN:clarita 12/22/2022 TC:5 CPT: 58693, 24137
== END | disposition home or self-care (01) ==
LOC: LABSPEC 15:04
PROVIDERS: PCP Internal Medicine; Visit Provider Orthopaedic Surgery
DX: M17.12 Unilateral primary osteoarthritis, left knee (principal)
CPT/HCPCS: 88305; 88311

== ENCOUNTER → 2023-11-22 | Outpatient (CLI) | payer MEDICARE, OTHER, SELFPAY ==
[2023-11-22 13:54] LABS: Bacteria 0 SEEN /hpf (None Seen); Mucous, Urine 0 SEEN /hpf (<or=2+); Red Blood Cells-Urine 0 SEEN /hpf (0-5); Squamous Epithelial Cells - UA 0 SEEN /hpf (0-5); White Blood Cells 0 SEEN /hpf (0-5)
[2023-11-22 15:05] LABS: Color, Urine Yellow (Yellow); Glucose, Dipstick Normal (Normal); Ketone-Dipstick Negative (Negative); Leukocyte Esterase-Dipstick Negative /ul (Negative); Nitrite-Dipstick Negative (Negative); Occult Blood-Urine Negative /ul (Negative); Protein-Dipstick Negative (Negative); Urine Bilirubin Dipstick Negative (Negative); Urine Clarity Clear (Clear); Urine Urobilinogen Normal (Normal)
[2023-11-22 15:15] LABS: Absolute Lymphocyte Count 1.69 X10^3/uL (0.83-4.51); Absolute Neutrophil Count 3.7 X10^3/uL (2.0-7.7); Basophil# 0.05 X10^3/uL; Basophil% 0.8 % (0-1); Eosinophil# 0.13 X10^3/uL; Eosinophils% 2.2 % (0-5); Hematocrit 44.9 % (40-54); Hemoglobin 14.7 g/dL (13.0-16.5); Lymphocyte # 1.69 X10^3/ul (0.83-4.51); Lymphocyte % 28.5 % (19-41); Mean Corp Hgb Conc 32.7 g/dL (32-36); Mean Corpuscular Hgb 29.2 pg (27.0-32.0); Mean Corpuscular Volume 89.1 fL (80-94); Mean Platelet Vol. 10.3 fl (6.2-12.0); Monocyte# 0.38 X10^3/uL; Monocyte% 6.4 % (0-10); NRBC Flagged by Analyzer 0 % (0-5); Neutrophil # 3.67 X10^3/uL (2.7-7.7); Neutrophil % 61.9 % (47-70); Platelet Count 230 K/mm3 (150-450); RBC Distribution Width CV 13.9 % (11.6-14.6); RBC Distribution Width SD 45.1 fl (35.1-43.9); Red Blood Count 5.04 M/mm3 (4.6-6.2); White Blood Count 5.9 K/mm3 (4.4-11.0)
[2023-11-22 15:23] LABS: Vitamin D,25 Hydroxy 41.5 ng/mL
[2023-11-22 15:31] LABS: ALB/GLOB Ratio 1.2 RATIO (0.9-2.4); AST(SGOT) 34 U/L (15-37); Alanine Aminotransfer ALT/SGPT 37 U/L (16-61); Albumin, Serum 4.1 g/dL (3.2-5.0); Alkaline Phosphatase 121 U/L (45-117); Anion Gap 7 (5-15); BUN 17 mg/dL (7-18); BUN/Creat Ratio 20.9 RATIO (10-20); Calcium,Total 9.1 mg/dL (8.5-10.1); Chloride 106 mmol/L (98-107); Cholesterol 186 mg/dL (200); Creatinine, Serum 0.81 mg/dL (0.70-1.30); EST Glomerular Filtration Rate 96 mL/min (>60); Est Glom Filt Rate - Afr Amer 116 mL/min (>60); Globulin 3.3 g/dL (2.2-4.2); Glucose 114 mg/dL (74-106); High Density Lipoprotein 79 mg/dL; Magnesium 2.4 mg/dL (1.6-2.6); Potassium 3.8 mmol/L (3.5-5.1); Protein, Total 7.4 g/dL (6.4-8.2); Sodium Level 137 mmol/L (136-145); Thyroid Stim Hormone (TSH) 1.36 uIU/mL (0.358-3.74); Triglycerides 137 mg/dL; Very Low Density Lipoprotein 27 mg/dL (5-40)
[2023-11-24 09:24] LABS: Hemoglobin A1c 5.8 % (3.8-5.6)
== END | disposition home or self-care (01) ==
LOC: MFPLAB 11:54
PROVIDERS: PCP Internal Medicine; Visit Provider Family Medicine
DX: R73.09 Other abnormal glucose (principal); E55.9 Vitamin D deficiency, unspecified; I10 Essential (primary) hypertension
CPT/HCPCS: 36415; 80053; 80061; 81001; 82306; 83036; 83735; 84443; 85025

== ENCOUNTER → 2024-03-22 | Outpatient (CLI) | payer MEDICARE, OTHER, SELFPAY ==
[2024-03-22 10:22] LABS: Bacteria 0 SEEN /hpf (None Seen); Mucous, Urine 0 SEEN /hpf (<or=2+); Red Blood Cells-Urine 0 SEEN /hpf (0-5); Squamous Epithelial Cells - UA 0 SEEN /hpf (0-5); White Blood Cells 0 SEEN /hpf (0-5)
[2024-03-22 12:09] LABS: Absolute Lymphocyte Count 2.24 X10^3/uL (0.83-4.51); Absolute Neutrophil Count 3.3 X10^3/uL (2.0-7.7); Basophil# 0.05 X10^3/uL; Basophil% 0.8 % (0-1); Eosinophils% 1.6 % (0-5); Hematocrit 42.4 % (40-54); Hemoglobin 13.8 g/dL (13.0-16.5); Lymphocyte # 2.24 X10^3/ul (0.83-4.51); Lymphocyte % 35.5 % (19-41); Mean Corp Hgb Conc 32.5 g/dL (32-36); Mean Corpuscular Hgb 29.1 pg (27.0-32.0); Mean Corpuscular Volume 89.3 fL (80-94); Mean Platelet Vol. 10.3 fl (6.2-12.0); Monocyte# 0.59 X10^3/uL; Monocyte% 9.4 % (0-10); NRBC Flagged by Analyzer 0 % (0-5); Neutrophil # 3.29 X10^3/uL (2.7-7.7); Neutrophil % 52.1 % (47-70); Platelet Count 235 K/mm3 (150-450); RBC Distribution Width CV 13.2 % (11.6-14.6); RBC Distribution Width SD 43.5 fl (35.1-43.9); Red Blood Count 4.75 M/mm3 (4.6-6.2); White Blood Count 6.3 K/mm3 (4.4-11.0)
[2024-03-22 12:25] LABS: Color, Urine Straw (Yellow); Glucose, Dipstick Normal (Normal); Ketone-Dipstick Negative (Negative); Leukocyte Esterase-Dipstick Negative /ul (Negative); Nitrite-Dipstick Negative (Negative); Occult Blood-Urine Negative /ul (Negative); Protein-Dipstick Negative (Negative); Specific Gravity, Urine 1.005 (1.002-1.030); Urine Bilirubin Dipstick Negative (Negative); Urine Clarity Clear (Clear); Urine Urobilinogen Normal (Normal)
[2024-03-22 12:53] LABS: Vitamin D,25 Hydroxy 40.3 ng/mL
[2024-03-22 14:55] LABS: ALB/GLOB Ratio 1.4 RATIO (0.9-2.4); AST(SGOT) 32 U/L (15-37); Alanine Aminotransfer ALT/SGPT 28 U/L (16-61); Alkaline Phosphatase 120 U/L (45-117); Anion Gap 7 (5-15); BUN 14 mg/dL (7-18); BUN/Creat Ratio 16.6 RATIO (10-20); Chloride 105 mmol/L (98-107); Cholesterol 180 mg/dL (200); Creatinine, Serum 0.84 mg/dL (0.70-1.30); EST Glomerular Filtration Rate 92 mL/min (>60); Est Glom Filt Rate - Afr Amer 112 mL/min (>60); Globulin 2.8 g/dL (2.2-4.2); Glucose 115 mg/dL (74-106); High Density Lipoprotein 66 mg/dL; Potassium 3.8 mmol/L (3.5-5.1); Protein, Total 6.8 g/dL (6.4-8.2); Sodium Level 136 mmol/L (136-145); Triglycerides 106 mg/dL; Very Low Density Lipoprotein 21 mg/dL (5-40)
[2024-03-22 15:40] LABS: Hemoglobin A1c 5.7 % (3.8-5.6)
== END | disposition home or self-care (01) ==
LOC: MFPLAB 10:17
PROVIDERS: PCP Family Medicine; Visit Provider Family Medicine
DX: I10 Essential (primary) hypertension (principal); R73.02 Impaired glucose tolerance (oral); E55.9 Vitamin D deficiency, unspecified
CPT/HCPCS: 36415; 80053; 80061; 81001; 82306; 83036; 85025

== ENCOUNTER → 2024-04-02 | Outpatient (CLI) | payer MEDICARE, OTHER, SELFPAY ==
--- NOTE | 2024-04-02 16:04 | US_ITS ---
STUDY: ULTRASOUND - URINARY BLADDER REASON FOR EXAM: Male, 83 years old. bph with obstruction TECHNIQUE: Ultrasound evaluation of the urinary bladder was performed with real-time and static cook-scale imaging. COMPARISON: None. FINDINGS: There is no right UVJ calculus. There is a visualized right ureteral jet. There is no left UVJ calculus. There is a visualized left ureteral jet. The distended volume of the urinary bladder is 228 ml. The empty volume of the urinary bladder is 23.2 ml. The bladder wall is within normal limits. The bladder wall measures 3 mm. There is no demonstrated bladder wall mass lesion. There are no demonstrated bladder calculi. US/Post Void Residual Bladder IMPRESSION: Normal ultrasound of the urinary bladder. Electronically Signed: Johnson Sherwood MD at 8:32 EDT ,
== END | disposition home or self-care (01) ==
LOC: US 16:02
PROVIDERS: PCP Family Medicine; Referring Provider Family Medicine; Visit Provider Family Medicine
DX: N40.1 Benign prostatic hyperplasia with lower urinary tract symptoms (principal)
CPT/HCPCS: 51798

== ENCOUNTER → 2024-11-02 | Outpatient (CLI) | payer MEDICARE, OTHER, SELFPAY ==
[2024-11-02 08:50] LABS: Bacteria 0 SEEN /hpf (None Seen); Mucous, Urine 0 SEEN /hpf (<or=2+); Red Blood Cells-Urine 0 SEEN /hpf (0-5); Squamous Epithelial Cells - UA 0 SEEN /hpf (0-5); White Blood Cells 0 SEEN /hpf (0-5)
[2024-11-02 10:31] LABS: Color, Urine Yellow (Yellow); Glucose, Dipstick Normal (Normal); Ketone-Dipstick Negative (Negative); Leukocyte Esterase-Dipstick Negative /ul (Negative); Nitrite-Dipstick Negative (Negative); Occult Blood-Urine Negative /ul (Negative); Protein-Dipstick Negative (Negative); Urine Bilirubin Dipstick Negative (Negative); Urine Clarity Clear (Clear); Urine Urobilinogen Normal (Normal)
[2024-11-02 10:41] LABS: Absolute Lymphocyte Count 2.15 X10^3/uL (0.83-4.51); Absolute Neutrophil Count 3.6 X10^3/uL (2.0-7.7); Basophil# 0.03 X10^3/uL; Basophil% 0.5 % (0-1); Eosinophil# 0.15 X10^3/uL; Eosinophils% 2.3 % (0-5); Hematocrit 44.2 % (40-54); Hemoglobin 14.2 g/dL (13.0-16.5); Lymphocyte # 2.15 X10^3/ul (0.83-4.51); Lymphocyte % 32.5 % (19-41); Mean Corp Hgb Conc 32.1 g/dL (32-36); Mean Corpuscular Hgb 28.7 pg (27.0-32.0); Mean Corpuscular Volume 89.3 fL (80-94); Mean Platelet Vol. 10.3 fl (6.2-12.0); Monocyte# 0.62 X10^3/uL; Monocyte% 9.4 % (0-10); NRBC Flagged by Analyzer 0 % (0-5); Neutrophil # 3.64 X10^3/uL (2.7-7.7); Platelet Count 220 K/mm3 (150-450); RBC Distribution Width CV 13.2 % (11.6-14.6); RBC Distribution Width SD 43.2 fl (35.1-43.9); Red Blood Count 4.95 M/mm3 (4.6-6.2); White Blood Count 6.6 K/mm3 (4.4-11.0)
[2024-11-02 10:59] LABS: Vitamin D,25 Hydroxy 53.4 ng/mL
[2024-11-02 11:08] LABS: ALB/GLOB Ratio 1.1 RATIO (0.9-2.4); AST(SGOT) 36 U/L (15-37); Alanine Aminotransfer ALT/SGPT 41 U/L (16-61); Albumin, Serum 3.9 g/dL (3.2-5.0); Alkaline Phosphatase 111 U/L (45-117); Anion Gap 8 (5-15); BUN 20 mg/dL (7-18); BUN/Creat Ratio 20.6 RATIO (10-20); Chloride 106 mmol/L (98-107); Cholesterol 179 mg/dL (200); Creatinine, Serum 0.97 mg/dL (0.70-1.30); EST Glomerular Filtration Rate 78 mL/min (>60); Est Glom Filt Rate - Afr Amer 94 mL/min (>60); Globulin 3.4 g/dL (2.2-4.2); Glucose 111 mg/dL (74-106); High Density Lipoprotein 72 mg/dL; Magnesium 2.3 mg/dL (1.6-2.6); Potassium 3.8 mmol/L (3.5-5.1); Protein, Total 7.3 g/dL (6.4-8.2); Sodium Level 137 mmol/L (136-145); Triglycerides 109 mg/dL; Very Low Density Lipoprotein 22 mg/dL (5-40)
[2024-11-02 12:52] LABS: Hemoglobin A1c 5.7 % (3.8-5.6)
== END | disposition home or self-care (01) ==
LOC: MFPLAB 08:47
PROVIDERS: PCP Family Medicine; Referring Provider Family Medicine; Visit Provider Family Medicine
DX: I10 Essential (primary) hypertension (principal); R73.02 Impaired glucose tolerance (oral); E55.9 Vitamin D deficiency, unspecified
CPT/HCPCS: 36415; 80053; 80061; 81001; 82306; 83036; 83735; 84443; 85025

== ENCOUNTER → 2025-02-26 | Outpatient (CLI) | payer MEDICARE, OTHER, SELFPAY ==
[2025-02-26 11:48] LABS: Bacteria 0 SEEN /hpf (None Seen); Mucous, Urine 0 SEEN /hpf (<or=2+); Red Blood Cells-Urine 0 SEEN /hpf (0-5); Squamous Epithelial Cells - UA 0 SEEN /hpf (0-5); White Blood Cells 0 SEEN /hpf (0-5)
[2025-02-26 15:41] LABS: Absolute Lymphocyte Count 1.92 X10^3/uL (0.83-4.51); Absolute Neutrophil Count 3.2 X10^3/uL (2.0-7.7); Basophil# 0.04 X10^3/uL; Basophil% 0.7 % (0-1); Eosinophil# 0.11 X10^3/uL; Eosinophils% 1.9 % (0-5); Hematocrit 42.9 % (40-54); Lymphocyte # 1.92 X10^3/ul (0.83-4.51); Lymphocyte % 33.7 % (19-41); Mean Corp Hgb Conc 32.6 g/dL (32-36); Mean Corpuscular Hgb 29.3 pg (27.0-32.0); Mean Corpuscular Volume 89.7 fL (80-94); Mean Platelet Vol. 10.5 fl (6.2-12.0); Monocyte# 0.46 X10^3/uL; Monocyte% 8.1 % (0-10); NRBC Flagged by Analyzer 0 % (0-5); Neutrophil # 3.15 X10^3/uL (2.7-7.7); Neutrophil % 55.2 % (47-70); Platelet Count 218 K/mm3 (150-450); RBC Distribution Width SD 42.6 fl (35.1-43.9); Red Blood Count 4.78 M/mm3 (4.6-6.2); White Blood Count 5.7 K/mm3 (4.4-11.0)
[2025-02-26 16:06] LABS: Hemoglobin A1c 5.9 % (<=5.6)
[2025-02-26 16:31] LABS: ALB/GLOB Ratio 1.7 RATIO (0.9-2.4); AST(SGOT) 37 U/L (<=37); Alanine Aminotransfer ALT/SGPT 29 U/L (<=46); Albumin, Serum 4.3 g/dL (3.4-4.8); Alkaline Phosphatase 103 U/L (40-129); Anion Gap 13 (5-15); BUN 18 mg/dL (4-19); BUN/Creat Ratio 20.2 RATIO (10-20); Calcium,Total 9.5 mg/dL (7.6-11.0); Carbon Dioxide 21.6 mmol/L (21.0-32.0); Chloride 102 mmol/L (98-108); Cholesterol 170 mg/dL (<=200); Creatinine, Serum 0.89 mg/dL (0.70-1.20); EST Glomerular Filtration Rate 85 (>60); Globulin 2.6 g/dL (2.2-4.2); Glucose 103 mg/dL (70-99); High Density Lipoprotein 62 mg/dL; Low Density Lipoprotein Calc. 87 mg/dL; Magnesium 2.2 mg/dL (1.5-2.2); Potassium 3.9 mmol/L (3.3-5.1); Sodium Level 137 mmol/L (133-145); Total Bilirubin 0.72 mg/dL (0.00-1.30); Triglycerides 107 mg/dL; Very Low Density Lipoprotein 21 mg/dL (5-40); Vitamin D,25 Hydroxy 43.1 ng/mL (30-100); cholesterol:hdl ratio screen 2.76
[2025-02-26 16:35] LABS: Color, Urine Straw (Yellow); Glucose, Dipstick Normal (Normal); Ketone-Dipstick Negative (Negative); Leukocyte Esterase-Dipstick Negative /ul (Negative); Nitrite-Dipstick Negative (Negative); Occult Blood-Urine Negative /ul (Negative); Protein-Dipstick Negative (Negative); Urine Bilirubin Dipstick Negative (Negative); Urine Clarity Clear (Clear); Urine Urobilinogen Normal (Normal)
== END | disposition home or self-care (01) ==
LOC: MFPLAB 11:41
PROVIDERS: PCP Family Medicine; Referring Provider Family Medicine; Visit Provider Family Medicine
DX: I10 Essential (primary) hypertension (principal); E55.9 Vitamin D deficiency, unspecified; R73.02 Impaired glucose tolerance (oral)
CPT/HCPCS: 36415; 80053; 80061; 81001; 82306; 83036; 83735; 84443; 85025

== ENCOUNTER → 2025-05-10 | Outpatient (CLI) | payer MEDICARE, OTHER, SELFPAY ==
[2025-05-10 10:10] LABS: Hematocrit 41.4 % (40-54); Hemoglobin 13.7 g/dL (13.0-16.5); Immature Granulocytes Count 0.020 X10^3/uL (0.0-0.0); Mean Corp Hgb Conc 33.1 g/dL (32-36); Mean Corpuscular Volume 88.7 fL (80-94); Mean Platelet Vol. 10.2 fl (6.2-12.0); NRBC Flagged by Analyzer 0 % (0-5); Platelet Count 208 K/mm3 (150-450); RBC Distribution Width CV 13.2 % (11.6-14.6); RBC Distribution Width SD 42.6 fl (35.1-43.9); Red Blood Count 4.67 M/mm3 (4.6-6.2); White Blood Count 6.9 K/mm3 (4.4-11.0)
[2025-05-10 11:38] LABS: CRP < 3.00 mg/L (0.0-3.0)
== END | disposition home or self-care (01) ==
LOC: LAB 09:38
PROVIDERS: PCP Family Medicine; Referring Provider Physician Assistant Surgical; Visit Provider Physician Assistant Surgical
DX: M25.562 Pain in left knee (principal); Z09 Encounter for follow-up examination after completed treatment for conditions other than malignant neoplasm; Z96.652 Presence of left artificial knee joint
CPT/HCPCS: 36415; 85025; 85652; 86140

== ENCOUNTER → 2025-06-11 | Outpatient (CLI) | payer MEDICARE, OTHER, SELFPAY ==
[2025-06-11 10:34] LABS: Mucous, Urine 0 SEEN /hpf (<or=2+); Red Blood Cells-Urine 0 SEEN /hpf (0-5); Squamous Epithelial Cells - UA 0 SEEN /hpf (0-5)
[2025-06-11 12:34] LABS: Glucose, Dipstick Normal (Normal); Ketone-Dipstick Negative (Negative); Leukocyte Esterase-Dipstick Negative /ul (Negative); Nitrite-Dipstick Negative (Negative); Occult Blood-Urine Negative /ul (Negative); Protein-Dipstick Negative (Negative); Specific Gravity, Urine 1.010 (1.002-1.030); Urine Bilirubin Dipstick Negative (Negative)
[2025-06-11 12:35] LABS: Color, Urine YELLOW (Yellow)
[2025-06-11 15:28] LABS: Hematocrit 39.8 % (40-54); Hemoglobin 13.0 g/dL (13.0-16.5); Immature Granulocytes Count 0.020 X10^3/uL (0.0-0.0); Mean Corp Hgb Conc 32.7 g/dL (32-36); Mean Corpuscular Volume 89.6 fL (80-94); Mean Platelet Vol. 9.9 fl (6.2-12.0); NRBC Flagged by Analyzer 0 % (0-5); Platelet Count 191 K/mm3 (150-450); RBC Distribution Width CV 13.6 % (11.6-14.6); RBC Distribution Width SD 44.3 fl (35.1-43.9); Red Blood Count 4.44 M/mm3 (4.6-6.2); White Blood Count 6.5 K/mm3 (4.4-11.0)
[2025-06-11 16:05] LABS: AST(SGOT) 31 U/L (<=37); Alanine Aminotransfer ALT/SGPT 28 U/L (<=46); Albumin, Serum 4.3 g/dL (3.4-4.8); Alkaline Phosphatase 115 U/L (40-129); Anion Gap 12 (5-15); BUN 14 mg/dL (4-19); BUN/Creat Ratio 15.7 RATIO (10-20); Calcium,Total 9.4 mg/dL (7.6-11.0); Carbon Dioxide 23.7 mmol/L (21.0-32.0); Chloride 101 mmol/L (98-108); Cholesterol 189 mg/dL (<=200); Globulin 2.4 g/dL (2.2-4.2); Glucose 111 mg/dL (70-99); Low Density Lipoprotein Calc. 99 mg/dL; Magnesium 2.3 mg/dL (1.5-2.2); Potassium 4.2 mmol/L (3.3-5.1); Triglycerides 110 mg/dL; Very Low Density Lipoprotein 22 mg/dL (5-40); cholesterol:hdl ratio screen 2.76
== END | disposition home or self-care (01) ==
LOC: MFPLAB 10:31
PROVIDERS: PCP Family Medicine; Referring Provider Family Medicine; Visit Provider Family Medicine
DX: I10 Essential (primary) hypertension (principal); R73.02 Impaired glucose tolerance (oral)
CPT/HCPCS: 80053; 80061; 81001; 83036; 83735; 85025

== ENCOUNTER → 2025-08-12 | Outpatient (CLI) | payer MEDICARE, OTHER, SELFPAY ==
--- NOTE | 2025-08-12 07:05 | MRI_ITS ---
PROCEDURE: MRI/MRI Abd WITH and W/O Contrast
== END | disposition home or self-care (01) ==
LOC: OPMRI 07:02
PROVIDERS: PCP Family Medicine; Referring Provider Family Medicine; Visit Provider Family Medicine
DX: N28.89 Other specified disorders of kidney and ureter (principal)
CPT/HCPCS: 74183; A9575; A4216

== ENCOUNTER → 2025-08-30 | Outpatient (CLI) | payer MEDICARE, OTHER, SELFPAY ==
[2025-08-30 08:46] LABS: Mucous, Urine 0 SEEN /hpf (<or=2+); Red Blood Cells-Urine 0 SEEN /hpf (0-5); Squamous Epithelial Cells - UA 0 SEEN /hpf (0-5)
[2025-08-30 10:10] LABS: Color, Urine Yellow (Yellow); Glucose, Dipstick Normal (Normal); Ketone-Dipstick Negative (Negative); Leukocyte Esterase-Dipstick Negative /ul (Negative); Nitrite-Dipstick Negative (Negative); Occult Blood-Urine Negative /ul (Negative); Protein-Dipstick Negative (Negative); Specific Gravity, Urine 1.010 (1.002-1.030); Urine Bilirubin Dipstick Negative (Negative)
[2025-08-30 10:12] LABS: Hematocrit 41.5 % (40-54); Hemoglobin 13.4 g/dL (13.0-16.5); Immature Granulocytes Count 0.020 X10^3/uL (0.0-0.0); Mean Corp Hgb Conc 32.3 g/dL (32-36); Mean Corpuscular Volume 89.2 fL (80-94); Mean Platelet Vol. 10.5 fl (6.2-12.0); NRBC Flagged by Analyzer 0 % (0-5); Platelet Count 216 K/mm3 (150-450); RBC Distribution Width CV 13.2 % (11.6-14.6); RBC Distribution Width SD 43.8 fl (35.1-43.9); Red Blood Count 4.65 M/mm3 (4.6-6.2); White Blood Count 5.6 K/mm3 (4.4-11.0)
[2025-08-30 10:57] LABS: AST(SGOT) 33 U/L (<=37); Alanine Aminotransfer ALT/SGPT 29 U/L (<=46); Albumin, Serum 4.3 g/dL (3.4-4.8); Alkaline Phosphatase 116 U/L (40-129); Anion Gap 10 (5-15); BUN 18 mg/dL (4-19); BUN/Creat Ratio 20.7 RATIO (10-20); Calcium,Total 9.3 mg/dL (7.6-11.0); Carbon Dioxide 24.7 mmol/L (21.0-32.0); Chloride 102 mmol/L (98-108); Cholesterol 174 mg/dL (<=200); Globulin 2.4 g/dL (2.2-4.2); Glucose 112 mg/dL (70-99); Low Density Lipoprotein Calc. 87 mg/dL; Magnesium 2.2 mg/dL (1.5-2.2); Potassium 4.1 mmol/L (3.3-5.1); Triglycerides 107 mg/dL; Very Low Density Lipoprotein 21 mg/dL (5-40); Vitamin D,25 Hydroxy 45.2 ng/mL (30-100); cholesterol:hdl ratio screen 2.57
== END | disposition home or self-care (01) ==
LOC: MFPLAB 08:44
PROVIDERS: PCP Family Medicine; Visit Provider Family Medicine
DX: I10 Essential (primary) hypertension (principal); R73.02 Impaired glucose tolerance (oral); E55.9 Vitamin D deficiency, unspecified
CPT/HCPCS: 36415; 80053; 80061; 81001; 82306; 83036; 83735; 85025

== ENCOUNTER → 2025-09-19 | Outpatient (CLI) | payer MEDICARE, OTHER, SELFPAY ==
--- OUTSIDE RECORDS SUMMARY | 2025-09-19 18:10 | XMS RPT_ITS | CCD ---
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 % [facility] Erythrocyte distribution width (RBC) [Ratio] 13.1 % 11.5 - 15.0 % [facility] Hematocrit (Bld) [Volume fraction] 41.6 % 40.0 - 52.0 % [facility] Hemoglobin (Bld) [Mass/Vol] 14 g/dL 13.0 - 18.0 g/dL [facility] Immature granulocytes (Bld) [#/Vol] 0 10*3/uL NINF - 0.1 10*3/uL [facility] Immature granulocytes/100 WBC (Bld) 0.4 % 0.0 - 2.0 % [facility] Interpretation and review of laboratory results Normal [facility] Lymphocytes (Bld) [#/Vol] 1.9 10*3/uL 1.0 - 4.3 10*3/uL [facility] Lymphocytes/100 WBC (Bld) 26.3 % 15.0 - 45.0 % [facility] MCH (RBC) [Entitic mass] 29.6 pg 26. 0 - 34.0 pg [facility] MCHC (RBC) [Mass/Vol] 33.7 % 30.5 - 36.0 % [facility] MCV (RBC) [Entitic vol] 87.9 fL 77.0 - 99.0 fL [facility] Monocytes (Bld) [#/Vol] 0.7 10*3/uL 0.0 - 0.9 10*3/uL [facility] Monocytes/100 WBC (Bld) 9.1 % 5.0 - 13.0 % [facility] Neutrophils (Bld) [#/Vol] 4.4 10*3/uL 1.8 - 7.5 10*3/uL [facility] Neutrophils/100 WBC (Bld) 61.2 % 38.0 - 82.0 % [facility] Nucleated RBC/100 WBC (Bld) [Ratio] 0 % [facility] Platelet mean volume (Bld) [Entitic vol] 10 fL 9.0 - 12.7 fL [facility] Platelets (Bld) [#/Vol] 220 10*3/uL 140 - 440 10*3/uL [facility] RBC (Bld) [#/Vol] 4.73 10*6/uL 4.40 - 5.9 0 10*6/uL [facility] WBC (Bld) [#/Vol] 7.1 10*3/uL 3.6 - 10.7 10*3/uL [facility] CBC WITH AUTO DIFFERENTIALon 07-17-2025 Basophils (Bld) [#/Vol] 0.0 10*3/uL Normal 0.0-0.2 [facility] Comment on above: Performed By: #### L [id number] #### Grades 9 Thru 12 Visiting Teacher: THEODORA RUSSELL ([phone]) [facility] [address] Basophils/100 WBC (Bld) 0.6 % Normal 0.0-2.0 [facility] Comment on above: Performed By: #### L [id number] #### Grades 9 Thru 12 Visiting Teacher: THEODORA RUSSELL ([phone]) [facility] [place] ([facility]) [address] Eosinophils (Bld) [#/Vol] 0.2 10*3/uL Normal 0.0-0.5 [facility] Comment on above: Performed By: #### L [id number] #### Grades 9 Thru 12 Visiting Teacher: THEODORA RUSSELL ([phone]) [facility] [place] ([facility]) [address] [place] [address] [place] Eosinophils/100 WBC (Bld) 2.4 % Normal 0.0-6.0 [facility] Comment on above: Performed By: #### L [id number] #### Grades 9 Thru 12 Visiting Teacher: THEODORA [phone]) [facility] [address] Erythrocyte distribution width (RBC) [Ratio] 13.1 % Normal 11.5-15.0 [facility] Comment on above: Performed By: #### L [id number] #### Grades 9 Thru 12 Visiting Teacher: THEODORA RUSSELL ([phone]) [facility] ([facility]) [address] Hematocrit (Bld) [Volume fraction] 41.6 % Normal 40.0-52.0 [facility] Comment on above: Performed By: #### L [id number] #### Grades 9 Thru 12 Visiting Teacher: THEODORA RUSSELL ([phone]) [facility] [address] Hemoglobin (Bld) [Mass/Vol] 14.0 g/dL Normal 13.0-18.0 [facility] Comment on above: Performed By: #### L [id number] #### Grades 9 Thru 12 Visiting Teacher: THEODORA RUSSELL ([phone]) [facility] [address] IMMATURE GRANS % 0.4 % Normal 0.0-2.0 [facility] Comment on above: Performed By: #### L [id number] #### Grades 9 Thru 12 Visiting Teacher: THEODORA RUSSELL ([phone]) [facility] [address] IMMATURE GRANS ABSOLUTE 0.0 10*3/uL Normal <0.1 [facility] Comment on above: Performed By: #### L [id number] #### Grades 9 Thru 12 Visiting Teacher: THEODORA RUSSELL ([phone]) [facility] [address] [place] [address] [place] Lymphocytes (Bld) [#/Vol] 1.9 10*3/uL Normal 1.0-4.3 [facility] Comment on above: Performed By: #### L [id number] #### Grades 9 Thru 12 Visiting Teacher: THEODORA RUSSELL ([phone]) [facility] [address] Lymphocytes/100 WBC (Bld) 26.3 % Normal 15.0-45.0 [facility] Comment on above: Performed By: #### L [id number] #### Grades 9 Thru 12 Visiting Teacher: THEODORA RUSSELL ([phone]) [facility] [place] ([facility]) [address] MCH (RBC) [Entitic mass] 29.6 pg Normal 26.0-34.0 [facility] Comment on above: Performed By: #### L [id number] #### Grades 9 Thru 12 Visiting Teacher: THEODORA RUSSELL ([phone]) [facility] ([facility]) [address] MCHC 33.7 % Normal 30.5-36.0 [facility] Comment on above: Performed By: #### L [id number] #### Grades 9 Thru 12 Visiting Teacher: THEODORA RUSSELL ([phone]) [facility] ([facility]) [address] [place] [address] MCV (RBC) [Entitic vol] 87.9 fL Normal 77.0-99.0 [facility] Comment on above: Performed By: #### L [id number] #### Grades 9 Thru 12 Visiting Teacher: THEODORA RUSSELL ([phone]) [facility] ([facility]) [address] [place] [address] Monocytes (Bld) [#/Vol] 0.7 10*3/uL Normal 0.0-0.9 [facility] Comment on above: Performed By: #### L [id number] #### Grades 9 Thru 12 Visiting Teacher: THEODORA RUSSELL ([phone]) [facility] ([facility]) [address] Monocytes/100 WBC (Bld) 9.1 % Normal 5.0-13.0 [facility] Comment on above: Performed By: #### L [id number] #### Grades 9 Thru 12 Visiting Teacher: THEODORA RUSSELL ([phone]) [facility] [place] ([facility]) [address] NEUTROPHILS ABSOLUTE 4.4 10*3/uL Normal 1.8-7.5 [facility] Comment on above: Performed By: #### L [id number] #### Grades 9 Thru 12 Visiting Teacher: THEODORA RUSSELL ([phone]) [facility] [place] ([facility]) [address] Neutrophils/100 WBC (Bld) 61.2 % Normal 38.0-82.0 [facility] Comment on above: Performed By: #### L [id number] #### Grades 9 Thru 12 Visiting Teacher: THEODORA RUSSELL ([phone]) [facility] ([facility]) [address] NRBC 0.0 /100 WBCs Normal 0.0-2.0 [facility] Comment on above: Performed By: #### L [id number] #### Grades 9 Thru 12 Visiting Teacher: THEODORA RUSSELL ([phone]) [facility] [address] Platelet mean volume (Bld) [Entitic vol] 10.0 fL Normal 9.0-12.7 [facility] Comment on above: Performed By: #### L [id number] #### Grades 9 Thru 12 Visiting Teacher: THEODORA RUSSELL ([phone]) [facility] [place] ([facility]) [address] [place] [address] [place] Platelets (Bld) [#/Vol] 220 10*3/uL Normal 140-440 [facility] Comment on above: Performed By: #### L [id number] #### Grades 9 Thru 12 Visiting Teacher: THEODORA RUSSELL ([phone]) [facility] [place] ([facility]) [address] [place] [address] [place] RBC (Bld) [#/Vol] 4.73 10*6/uL Normal 4.40-5.90 [facility] Comment on above: Performed By: #### L [id number] #### Grades 9 Thru 12 Visiting Teacher: THEODORA RUSSELL ([phone]) [facility] [place] ([facility]) [address] WBC (Bld) [#/Vol] 7.1 10*3/uL Normal 3.6-10.7 [facility] Comment on above: Performed By: #### L [id number] #### Grades 9 Thru 12 Visiting Teacher: THEODORA RUSSELL ([phone]) [facility] ([facility]) [address] COMPREHENSIVE METABOLIC PANE [place] 07-17-2025 Albumin [Mass/Vol] 3.9 g/dL Normal 3.4-4.8 [facility] Comment on above: Performed By: #### L AB99, LAB17 #### Grades 9 Thru 12 Visiting Teacher: THEODORA RUSSELL ([phone]) [facility] [address] ALP [Catalytic activity/Vol] 116 U/L Normal 40-150 [facility] Comment on above: Performed By: #### L AB99, LAB17 #### Grades 9 Thru 12 Visiting Teacher: THEODORA RUSSELL ([phone]) [facility] ([facility]) [address] ALT [Catalytic activity/Vol] 24 U/L Normal <40 [facility] Comment on above: Performed By: #### L AB99, LAB17 #### Grades 9 Thru 12 Visiting Teacher: THEODORA RUSSELL ([phone]) [facility] [address] Anion gap [Moles/Vol] 10 mmol/L Normal 3-13 [facility] Comment on above: Performed By: #### L AB99, LAB17 #### Grades 9 Thru 12 Visiting Teacher: THEODORA RUSSELL ([phone]) [facility] ([facility] [address] AST [Catalytic activity/Vol] 32 U/L Normal <34 [facility] Comment on above: Performed By: #### L AB99, LAB17 #### Grades 9 Thru 12 Visiting Teacher: THEODORA RUSSELL ([phone]) [facility] (SB[facility]) [address] Bilirubin [Mass/Vol] 0.6 mg/dL Normal <1.2 [facility] Comment on above: Performed By: #### L AB99, LAB17 #### Grades 9 Thru 12 Visiting Teacher: THEODORA RUSSELL ([phone]) [facility] (SB[facility]) [address] Calcium [Mass/Vol] 9.1 mg/dL Normal 8.8-10.0 [facility] Comment on above: Performed By: #### L AB99, LAB17 #### Grades 9 Thru 12 Visiting Teacher: THEODORA RUSSELL ([phone]) [facility] ([facility]) [address] Chloride [Moles/Vol] 104 mmol/L Normal 98-107 [facility] Comment on above: Performed By: #### L AB99, LAB17 #### Grades 9 Thru 12 Visiting Teacher: THEODORA RUSSELL ([phone]) [facility] ([facility]) [address] [place] [address] [place] CO2 [Moles/Vol] 22 mmol/L Low 23-31 [facility] Comment on above: Performed By: #### L AB99, LAB17 #### Grades 9 Thru 12 Visiting Teacher: THEODORA RUSSELL ([phone]) [facility] ([facility]) [address] [place] [address] [place] Creatinine [Mass/Vol] 0.90 mg/dL Normal 0.72-1.25 [facility] Comment on above: Performed By: #### L AB99, LAB17 #### Grades 9 Thru 12 Visiting Teacher: THEODORA RUSSELL ([phone]) [facility] ([facility]) [address] [place] [address] [place] GLOMERULAR FILTRATION RATE ML/MIN/1.73 SQ M.PREDICTED 83.7 mL/min/1.73m*2 Normal >60.0 [facility] Comment on above: Result Comment: Calc ulation based on the Chronic Kidney Disease Epidemiology Collaboration (CKD-EPI) equation refit without adjustment for race Performed By: #### L AB99, LAB17 #### Grades 9 Thru 12 Visiting Teacher: THEODORA RUSSELL ([phone]) [facility] ([facility]) [address] Glucose [Mass/Vol] 136 mg/dL High 82-115 [facility] Comment on above: Performed By: #### L AB99, LAB17 #### Grades 9 Thru 12 Visiting Teacher: THEODORA RUSSELL ([phone]) [facility] ([facility]) [address] Potassium [Moles/Vol] 3.7 mmol/L Normal 3.5-5.1 [facility] Comment on above: Result Comment: [facility] potassium values may be up to 0.5 mmol/L lower than serum values. Performed By: #### L AB99, LAB17 #### Grades 9 Thru 12 Visiting Teacher: THEODORA RUSSELL ([phone]) [facility] ([facility]) [address] Protein [Mass/Vol] 7.0 g/dL Normal 6.4-8.3 [facility] Comment on above: Performed By: #### L AB99, LAB17 #### Grades 9 Thru 12 Visiting Teacher: THEODORA RUSSELL ([phone]) [facility] ([facility]) [address] Sodium [Moles/Vol] 136 mmol/L Normal 136-145 [facility] Comment on above: Performed By: #### L AB99, LAB17 #### Grades 9 Thru 12 Visiting Teacher: THEODORA RUSSELL ([phone]) [facility] ([facility]) [address] [place] [address] [place] Urea nitrogen [Mass/Vol] 15 mg/dL Normal 9-23 [facility] Comment on above: Performed By: #### L AB99, LAB17 #### Grades 9 Thru 12 Visiting Teacher: THEODORA RUSSELL ([phone]) [facility] ([facility]) [address] ABDOMEN PELVIS WO IV CONT Luis 07-17-2025 CT ABDOMEN PELVIS WO IV CONTRAST Patient Name: SILVERIO GROVER DOB: 1940 [facility]#: [id number] Exam Date/Time: 07/17/2025 16:59 Procedure: CT ABDOMEN PELVIS WO IV CONTRAST Ordering Provider: RODRIGUEZ RANDALL Reason For Exam: R flank pain EXAM: CT Abdomen and Pelvis Without Intravenous Contrast CLINICAL INDICATION: R flank pain TECHNIQUE: Axial computed tomography images of the abdomen and pelvis without intravenous contrast. This CT exam was performed using one or more of the following dose reduction techniques: automated exposure control, adjustment of the mA and/or kV according to patient size, and/or use of iterative reconstruction technique. COMPARISON: No relevant prior studies available. FINDINGS: LUNG BASES: Subsegmental left basilar atelectasis. ABDOMEN: LIVER: Hypodense lesion in the inferior tip of the right hepatic lobe, slightly higher density than simple fluid measuring 1.2 cm. GALLBLADDER AND BILE DUCTS: Cholelithiasis within a nondistended gallbladder. No ductal dilation. PANCREAS: Unremarkable. No ductal dilation. SPLEEN: Calcified granulomata in the spleen. ADRENALS: Unremarkable. No mass. KIDNEYS AND URETERS: Hyperdense left renal lesion measuring 1.3 cm. No obstructing stones. No hydronephrosis. STOMACH AND BOWEL: Diverticuli are noted throughout the descending and sigmoid colon. No stenotic lesion, mucosal thickening or adjacent fat stranding is noted to suggest diverticulitis. No obstruction. PELVIS: APPENDIX: The appendix is not identified, however there is no pericecal fat stranding. BLADDER: Distended urinary bladder. No stones. REPRODUCTIVE: Prostatomegaly. ABDOMEN and PELVIS: INTRAPERITONEAL SPACE: Unremarkable. No free air. No significant fluid collection. BONES/JOINTS: No acute fracture. Degenerative changes in the spine. VASCULATURE: Atherosclerotic disease. No abdominal aortic aneurysm. LYMPH NODES: Unremarkable. No enlarged lymph nodes. IMPRESSION: 1. No radiopaque urinary calculi or hydroureteronephrosi s. 2. Indeterminate liver lesion. This could represent a cyst or hemangioma but recommend MRI with contrast for further evaluation. 3. Hyperdense left renal lesion which could represent a solid lesion or complex cyst. Recommend MRI with contrast for further evaluation. 4. Cholelithiasis. 5. Colonic diverticulosis. Report Dictated on Electronically Signed By: Martin Guillen MD Electronically Signed Date/Time: 07/17/2025 5:51 PM EDT [facility] CT Abdomen and Pelvis WO matheus wattson 07-17-2025 1. No radiopaque urinary calculi or hydroureteronephrosi s. 2. Indeterminate liver lesion. This could represent a cyst or hemangioma but recommend MRI with contrast for further evaluation. 3. Hyperdense left renal lesion which could represent a solid lesion or complex cyst. Recommend MRI with contrast for further evaluation. 4. Cholelithiasis. 5. Colonic diverticulosis. Report Dictated on Electronically Signed By: Martin Guillen MD Electronically Signed Date/Time: 07/17/2025 5:51 PM EDT [facility] RADIOLOGY SYSTEM Patient Name: SILVERIO GROVER : 1940 Exam Date/Time: 07/17/2025 16:59 Procedure: CT ABDOMEN PELVIS WO IV CONTRAST Ordering Provider: RODRIGUEZ RANDALL Reason For Exam: R flank pain EXAM: CT Abdomen and Pelvis Without Intravenous Contrast CLINICAL INDICATION: R flank pain TECHNIQUE: Axial computed tomography images of the abdomen and pelvis without intravenous contrast. This CT exam was performed using one or more of the following dose reduction techniques: automated exposure control, adjustment of the mA and/or kV according to patient size, and/or use of iterative reconstruction technique. COMPARISON: No relevant prior studies available. FINDINGS: LUNG BASES: Subsegmental left basilar atelectasis. ABDOMEN: LIVER: Hypodense lesion in the inferior tip of the right hepatic lobe, slightly higher density than simple fluid measuring 1.2 cm. GALLBLADDER AND BILE DUCTS: Cholelithiasis within a nondistended gallbladder. No ductal dilation. PANCREAS: Unremarkable. No ductal dilation. SPLEEN: Calcified granulomata in the spleen. ADRENALS: Unremarkable. No mass. KIDNEYS AND URETERS: Hyperdense left renal lesion measuring 1.3 cm. No obstructing stones. No hydronephrosis. STOMACH AND BOWEL: Diverticuli are noted throughout the descending and sigmoid colon. No stenotic lesion, mucosal thickening or adjacent fat stranding is noted to suggest diverticulitis. No obstruction. PELVIS: APPENDIX: The appendix is not identified, however there is no pericecal fat stranding. BLADDER: Distended urinary bladder. No stones. REPRODUCTIVE: Prostatomegaly. ABDOMEN and PELVIS: INTRAPERITONEAL SPACE: Unremarkable. No free air. No significant fluid collection. BONES/JOINTS: No acute fracture. Degenerative changes in the spine. VASCULATURE: Atherosclerotic disease. No abdominal aortic aneurysm. LYMPH NODES: Unremarkable. No enlarged lymph nodes. [facility] RAD[facility]OLOG[facility] SYSTEM Martin Guillen MD - 07/17/2025 Patient Name: SILVERIO GROVER : 1940 [id number] Exam Date/Time: 07/17/2025 16:59 Procedure: CT ABDOMEN PELVIS WO IV CONTRAST Ordering Provider: RODRIGUEZ RANDALL Reason For Exam: R flank pain EXAM: CT Abdomen and Pelvis Without Intravenous Contrast CLINICAL INDICATION: R flank pain TECHNIQUE: Axial computed tomography images of the abdomen and pelvis without intravenous contrast. This CT exam was performed using one or more of the following dose reduction techniques: automated exposure control, adjustment of the mA and/or kV according to patient size, and/or use of iterative reconstruction technique. COMPARISON: No relevant prior studies available. FINDINGS: LUNG BASES: Subsegmental left basilar atelectasis. ABDOMEN: LIVER: Hypodense lesion in the inferior tip of the right hepatic lobe, slightly higher density than simple fluid measuring 1.2 cm. GALLBLADDER AND BILE DUCTS: Cholelithiasis within a nondistended gallbladder. No ductal dilation. PANCREAS: Unremarkable. No ductal dilation. SPLEEN: Calcified granulomata in the spleen. ADRENALS: Unremarkable. No mass. KIDNEYS AND URETERS: Hyperdense left renal lesion measuring 1.3 cm. No obstructing stones. No hydronephrosis. STOMACH AND BOWEL: Diverticuli are noted throughout the descending and sigmoid colon. No stenotic lesion, mucosal thickening or adjacent fat stranding is noted to suggest diverticulitis. No obstruction. PELVIS: APPENDIX: The appendix is not identified, however there is no pericecal fat stranding. BLADDER: Distended urinary bladder. No stones. REPRODUCTIVE: Prostatomegaly. ABDOMEN and PELVIS: INTRAPERITONEAL SPACE: Unremarkable. No free air. No significant fluid collection. BONES/JOINTS: No acute fracture. Degenerative changes in the spine. VASCULATURE: Atherosclerotic disease. No abdominal aortic aneurysm. LYMPH NODES: Unremarkable. No enlarged lymph nodes. IMPRESSION: 1. No radiopaque urinary calculi or hydroureteronephrosi s. 2. Indeterminate liver lesion. This could represent a cyst or hemangioma but recommend MRI with contrast for further evaluation. 3. Hyperdense left renal lesion which could represent a solid lesion or complex cyst. Recommend MRI with contrast for further evaluation. 4. Cholelithiasis. 5. Colonic diverticulosis. Report Dictated on Electronically Signed By: Martin Guillen MD Electronically Signed Date/Time: 07/17/2025 5:51 PM EDT [facility] Radiology Study observation (narrative) [facility] CT Abdomen and Pelvis WO con trastOrdered By: Martin Guillen on 07-17-2025 [facility] [employer] Work Phone: Comprehensive metabolic 1998 panelon 07-17-2025 Albumin [Mass/Vol] 3.9 g/dL 3.4 - 4.8 g/dL [facility] ALP [Catalytic activity/Vol] 116 U/L 40 - 150 U/L [facility] ALT [Catalytic activity/Vol] 24 U/L [facility] - [facility] U/L [facility] Anion gap [Moles/Vol] 10 mmol/L 3 - 13 mmol/L [facility] AST [Catalytic activity/Vol] 32 U/L [facility] - 34 U/L [facility] Bilirubin [Mass/Vol] 0.6 mg/dL [facility] - 1.2 mg/dL [facility] Calcium [Mass/Vol] 9.1 mg/dL 8.8 - 10. 0 mg/dL [facility] [employer] Chloride [Moles/Vol] 104 mmol/L 98 - 10 7 mmol/L [facility] [employer] CO2 [Moles/Vol] 22 mmol/L Low 23 - 31 mmol/L [facility] Creatinine [Mass/Vol] 0.9 mg/dL 0.72 - 1.25 mg/dL [facility] [employer] GFR/1.73 sq M.predicted (S/P/Bld) [Vol rate/Area] 83.7 mL/min - PINF [facility] Comment on above: Calculation based on the Chronic Kidney Disease Epidemiology Collaboration (CKD-EPI) equation refit without adjustment for race Glucose [Mass/Vol] 136 mg/dL High 82 - 115 mg/dL [facility] Interpretation and review of laboratory results Abnormal [facility] Potassium [Moles/Vol] 3.7 mmol/L 3.5 - 5.1 mmol/L [facility] Comment on above: Plasma potassium levi ues may be up to 0.5 mmol/L lower than serum values. Protein [Mass/Vol] 7 g/dL 6.4 - 8.3 g/dL [facility] Sodium [Moles/Vol] 136 mmol/L 136 - 145 mmol/L [facility] Urea nitrogen [Mass/Vol] 15 mg/dL 9 - 23 mg/d L [facility] ED Nursing Noteon 07-17-2025 ED Nursing Note Introduced myself as pt liaison and explained role and provided support to daughter Charlotte in tolu , pt arrived via EMS. Normal [facility] ED Provider Noteon ED Provider Note EMERGENCY DEPARTMENT ENCOUNTER Pt Name: Silverio Grover Birthdate 1940 Date of evaluation: 07/17/2025 ED Provider: Chinmay Rodriguez MD CHIEF COMPLAINT Chief Complaint Patient presents with Back Pain Back pain started 4 days ago, denies issues voiding. HISTORY OF PRESENT ILLNESS (Location/Symptom, Timing/Onset, Context/Setting, Quality, Duration, Modifying Factors, Severity) Note limiting factors. I wore appropriate PPE for the entirety of this encounter. HPI Silverio Grover is a 85 y.o. who presents to the emergency department for evaluation of back pain. States has been going on for quite some time's hurts on his right flank denies dysuria frequency abdominal pain radiating pain difficulty moving legs sensory loss muscle weakness Nursing Notes were reviewed. REVIEW OF SYSTEMS Review of Systems Pertinent positives and negatives as per HPI. PAST MEDICAL HISTORY Medical History[1] SURGICAL HISTORY Surgical History[2] CURRENT MEDICATIONS There are no discharge medications for this patient. ALLERGIES Lisinopril FAMILY HISTORY Family History[3] SOCIAL HISTORY Social History[4] SCREENINGS PHYSICAL EXAM ED Triage Vitals [07/17/25 1612] Temp Heart Rate Resp BP 36.1 ?C (96.9 ?F) 74 18 (!) 198/111 SpO2 Temp Source Heart Rate Source Patient Position 95 % Temporal Monitor -- BP Location FiO2 (%) -- -- Physical Exam Vitals and nursing note reviewed. Constitutional: General: He is not in acute distress. Appearance: Normal appearance. He is well-developed. He is not diaphoretic. HENT: Head: Normocephalic and atraumatic. Mouth/Throat: Mouth: Mucous membranes are moist. Pharynx: Oropharynx is clear. Eyes: Extraocular Movements: Extraocular movements intact. Conjunctiva/sclera: Conjunctivae normal. Pupils: Pupils are equal, round, and reactive to light. Cardiovascular: Rate and Rhythm: Normal rate and regular rhythm. Pulses: Normal pulses. Heart sounds: Normal heart sounds. No murmur heard. Pulmonary: Effort: Pulmonary effort is normal. No respiratory distress. Breath sounds: Normal breath sounds. Abdominal: Palpations: Abdomen is soft. Tenderness: There is no abdominal tenderness. Musculoskeletal: General: No swelling or tenderness. Cervical back: Normal range of motion and neck supple. Skin: General: Skin is warm and dry. Capillary Refill: Capillary refill takes less than 2 seconds. Neurological: General: No focal deficit present. Mental Status: He is alert and oriented to person, place, and time. Mental status is at baseline. Comments: NIH stroke scale 0 Psychiatric: Mood and Affect: Mood normal. DIAGNOSTIC RESULTS RADIOLOGY (Per Emergency Physician): Interpretation per the Radiologist below, if available at the time of this note: CT abdomen pelvis wo IV contrast Final Result 1. No radiopaque urinary calculi or hydroureteronephrosi s. 2. Indeterminate liver lesion. This could represent a cyst or hemangioma but recommend MRI with contrast for further evaluation. 3. Hyperdense left renal lesion which could represent a solid lesion or complex cyst. Recommend MRI with contrast for further evaluation. 4. Cholelithiasis. 5. Colonic diverticulosis. Report Dictated on Electronically Signed By: Martin Guillen MD Electronically Signed Date/Time: 07/17/2025 5:51 PM EDT LABS: Labs Reviewed COMPREHENSIVE METABOLIC PANEL - Abnormal Result Value SODIUM 136 POTASSIUM 3.7 CHLORIDE 104 CARBON DIOXIDE 22 (*) ANION GAP 10 UREA NITROGEN 15 CREATININE 0.90 GLUCOSE 136 (*) CALCIUM 9.1 AST (SGOT) 32 ALT 24 ALKALINE PHOSPHATASE 116 ALBUMIN 3.9 BILIRUBIN, TOTAL 0.6 TOTAL PROTEIN 7.0 eGFR 83.7 CBC WITH AUTO DIFFERENTIAL - Normal Auto WBC 7.1 RBC 4.73 Hemoglobin 14.0 Hematocrit 41.6 MCV 87.9 MCH 29.6 MCHC 33.7 RDW 13.1 Platelets 220 MPV 10.0 nRBC 0.0 Neutrophils Relative 61.2 Lymphocytes Relative 26.3 Monocytes Relative 9.1 Eosinophils Relative 2.4 Basophils Relative 0.6 Immature Grans % 0.4 Neutrophils Absolute 4.4 Lymphocytes Absolute 1.9 Monocytes Absolute 0.7 Eosinophils Absolute 0.2 Basophils Absolute 0.0 Immature Grans Absolute 0.0 LIPASE - Normal LIPASE 20 All other labs were within normal range or not returned as of this dictation. EMERGENCY DEPARTMENT COURSE and DIFFERENTIAL DIAGNOSIS/MDM: Vitals: Vitals: 07/17/25 1612 BP: (!) 198/111 Pulse: 74 Resp: 18 Temp: 36.1 ?C (96.9 ?F) TempSrc: Temporal SpO2: 95% The patient presented for evaluation of right paraspinal pain. Differential diagnosis includes kidney stone. CT scan negative for acute finding labs also negative for acute finding did improve on exam. Does not have a straight leg sign but does not have any red flags for back pain no trauma well-appearing overall discharge with strict return precautions MEDICAL DECISION MAKING: (more content not included)... Normal [facility] LIPASEon 07-17-2025 Lipase [Catalytic activity/Vol] 20 U/L Normal <55 [facility] Comment on above: Performed By: #### L AB99, LAB17 #### Grades 9 Thru 12 Visiting Teacher: THEODORA RUSSELL ([phone]) [facility] ([facility]) [address] [place] [address] Laboratory - Chemistry and C hemistry - challengeon 07-17-2025 Lipase [Catalytic activity/Vol] 20 U/L NINF - 55 U/L [facility] Lipase [Catalytic activity/V ol]on 07-17-2025 Interpretation and review of laboratory results Normal [facility] No Panel Informationon 07-17 [facility] Absolute lymphocyte countOrd ered By: Fabián Kirkland on 06-11-2025 Lymphocytes Auto (Unsp spec) [#/Vol] 1.66 10*3/uL 0.83-4.51 [facility] Absolute neutrophil countOrd ered By: Fabián Kirkland on 06-11-2025 Neutrophils (Bld) [#/Vol] 4.2 10*3/uL 2.0-7.7 [facility] Anion gap in Serum or Plasma Ordered By: Fabián Kirkland on 06-11-2025 Anion gap [Moles/Vol] 12 mmol/L 5- [facility] Automated lymphocyte count a s percentage of total leukocytesOrdered By: Fabián Kirkland on 06-11-2025 Lymphocytes/100 WBC Auto (Unsp spec) 25.6 % 19- [facility] BUN/creatinine ratioOrdered By: Fabián Kirkland on 06-11-2025 Urea nitrogen/Creatinine [Mass ratio] 15.7 mg/mg 10- [facility] Basophil percentageOrdered B y: Fabián Kirkland on 06-11-2025 Basophils/100 WBC (Bld) 0.6 % 0-1 [facility] Bilirubin Test strip Ql (U)O rdered By: Fabián Kirkland on 06-11-2025 Bilirubin Ql (U) Negative Negative [facility] Bilirubin, totalOrdered By: Fabián Kirkland on 06-11-2025 Bilirubin [Mass/Vol] 0.70 mg/dL 0.00-1.30 [facility] CBC W/Diff, Automatedon Absolute Lymph 1.66 X10 3/uL Normal 0.83-4.51 [facility] Comment on above: Order Comment: Order Date: 06/11/25 Order Info: [id number] - CBCD Performed By: #### L 500.4100, L501.5200, L500.4050, L100.0100, L501.9985 #### [facility] Laboratory [address] [place], [place], [id number] [phone] Absolute Neut 4.2 X10 3/uL Normal 2.0-7.7 [facility] Comment on above: Order Comment: Order Date: 06/11/25 Order Info: [id number] - CBCD Performed By: #### L 500.4100, L501.5200, L500.4050, L100.0100, L501.9985 #### [facility] Laboratory [address] [place], [place], [id number] Basophils/100 WBC (Bld) 0.6 % Normal 0-1 [facility] Comment on above: Order Comment: Order Date: 06/11/25 Order Info: [id number] - CBCD Performed By: #### L 500.4100, L501.5200, L500.4050, L100.0100, L501.9985 #### [facility] Laboratory [address] [place], [address] Eosinophils/100 WBC (Bld) 2.3 % Normal 0-5 [facility] Comment on above: Order Comment: Order Date: 06/11/25 Order Info: [id number] - CBCD Performed By: #### L 500.4100, L501.5200, L500.4050, L100.0100, L501.9985 #### [facility] Laboratory [address] [place], [address] Erythrocyte distribution width (RBC) [Ratio] 13.6 % Normal 11.6-14.6 [facility] Comment on above: Order Comment: Order Date: 06/11/25 Order Info: [id number] - CBCD Performed By: #### L 500.4100, L501.5200, L500.4050, L100.0100, L501.9985 #### [facility] Laboratory [address] [place], [address] Hematocrit (Bld) [Volume fraction] 39.8 % Low 40-54 [facility] Comment on above: Order Comment: Order Date: 06/11/25 Order Info: [id number] - CBCD Performed By: #### L 500.4100, L501.5200, L500.4050, L100.0100, L501.9985 #### [facility] Laboratory [address] [place], [address] Hemoglobin (Bld) [Mass/Vol] 13.0 g/dL Normal 13.0-16.5 [facility] Comment on above: Order Comment: Order Date: 06/11/25 Order Info: [id number] - CBCD Performed By: #### L 500.4100, L501.5200, L500.4050, L100.0100, L501.9985 #### [facility] Laboratory [address] [place], [address] IG% 0.300 Normal 0.0-0.9 [facility] Comment on above: Order Comment: Order Date: 06/11/25 Order Info: [id number] - CBCD Result Comment: IG% - Immature Granulocytes (promyelocytes, myelocytes and metamyelocytes) > 1% indicates that a LEFT SHIFT is Present. Performed By: #### L 500.4100, L501.5200, L500.4050, L100.0100, L501.9985 #### [facility] Laboratory [address] [place], [address] Lymphocytes/100 WBC (Bld) 25.6 % Normal 19-41 [facility] Comment on above: Order Comment: Order Date: 06/11/25 Order Info: [id number] - CBCD Performed By: #### L 500.4100, L501.5200, L500.4050, L100.0100, L501.9985 #### [facility] Laboratory [address] [place], [address] MCH (RBC) [Entitic mass] 29.3 pg Normal 27.0-32.0 [facility] Comment on above: Order Comment: Order Date: 06/11/25 Order Info: [id number] - CBCD Performed By: #### L 500.4100, L501.5200, L500.4050, L100.0100, L501.9985 #### [facility] Laboratory [address] [place], [address] MCHC (RBC) [Mass/Vol] 32.7 g/dL Normal 32-36 [facility] Comment on above: Order Comment: Order Date: 06/11/25 Order Info: [id number] - CBCD Performed By: #### L 500.4100, L501.5200, L500.4050, L100.0100, L501.9985 #### [facility] Laboratory [address] [place], [address] MCV (RBC) [Entitic vol] 89.6 fL Normal 80-94 [facility] Comment on above: Order Comment: Order Date: 06/11/25 Order Info: [id number] - CBCD Performed By: #### L 500.4100, L501.5200, L500.4050, L100.0100, L501.9985 #### [facility] Laboratory [address] [place], [address] Monocytes/100 WBC (Bld) 6.8 % Normal 0-10 [facility] Comment on above: Order Comment: Order Date: 06/11/25 Order Info: [id number]- - CBCD Performed By: #### L 500.4100, L501.5200, L500.4050, L100.0100, L501.9985 #### [facility] Laboratory [address] [place], [address] Neutrophils/100 WBC (Bld) 64.4 % Normal 47-70 [facility] Comment on above: Order Comment: Order Date: 06/11/25 Order Info: [id number]- - CBCD Performed By: #### L 500.4100, L501.5200, L500.4050, L100.0100, L501.9985 #### [facility] Laboratory [address] [place], [address] Nucleated RBC (Bld) [#/Vol] 0 10*3/uL Normal 0-5 [facility] Comment on above: Order Comment: Order Date: 06/11/25 Order Info: [id number] - CBCD Performed By: #### L 500.4100, L501.5200, L500.4050, L100.0100, L501.9985 #### [facility] Laboratory [address] [place], [address] Platelet mean volume (Bld) [Entitic vol] 9.9 fL Normal 6.2-12.0 [facility] Comment on above: Order Comment: Order Date: 06/11/25 Order Info: [id number] - CBCD Performed By: #### L 500.4100, L501.5200, L500.4050, L100.0100, L501.9985 #### [facility] Laboratory [address] [place], [address] Platelets (Bld) [#/Vol] 191 10*3/uL Normal 150-450 [facility] Comment on above: Order Comment: Order Date: 06/11/25 Order Info: [id number] - CBCD Performed By: #### L 500.4100, L501.5200, L500.4050, L100.0100, L501.9985 #### [facility] Laboratory [address] [place], [address] RBC (Bld) [#/Vol] 4.44 10*6/uL Low 4.6-6.2 [facility] Comment on above: Order Comment: Order Date: 06/11/25 Order Info: [id number] - CBCD Performed By: #### L 500.4100, L501.5200, L500.4050, L100.0100, L501.9985 #### [facility] Laboratory [address] [place], [address] RDW SD 44.3 fl High 35.1-43.9 [facility] Comment on above: Order Comment: Order Date: 06/11/25 Order Info: [id number] - CBCD Performed By: #### L 500.4100, L501.5200, L500.4050, L100.0100, L501.9985 #### [facility] Laboratory [address] [place], [address] WBC (Bld) [#/Vol] 6.5 10*3/uL Normal 4.4-11.0 [facility] Comment on above: Order Comment: Order Date: 06/11/25 Order Info: [id number] - CBCD Performed By: #### L 500.4100, L501.5200, L500.4050, L100.0100, L501.9985 #### [facility] Laboratory [address] [place], [place], [id number] Calculated very low density lipoprotein (VLDL) cholesterol measurementOrdered By: Fabián Kirkland on 06-11-2025 Calculated very low density lipoprotein (VLDL) cholesterol measurement 22 mg/dL 5-40 [facility] Carbon dioxide, total [Moles /volume] in Central venous bloodOrdered By: Fabián Kirkland on 06-11-2025 CO2 [Moles/Vol] 23.7 mmol/L 21.0-32.0 [facility] Chloride assayOrdered By: Cintia Kirkland on 06-11-2025 Chloride [Moles/Vol] 101 mmol/L 98-108 [facility] Comprehensive Metabolic Prof ilon 06-11-2025 Albumin [Mass/Vol] 4.3 g/dL Normal 3.4-4.8 [facility] Comment on above: Order Comment: Order Date: 06/11/25 Order Info: [id number] - CMP Order Info: [id number] - LIPID Order Info: - MG Performed By: #### L 500.4100, L501.5200, L500.4050, L100.0100, L501.9985 #### [facility] Laboratory [address] [place], [place], [address] Albumin/Globulin [Mass ratio] 1.8 {ratio} Normal 0.9-2.4 [facility] Comment on above: Order Comment: Order Date: 06/11/25 Order Info: [id number] - CMP Order Info: [id number] - LIPID Order Info: - MG Performed By: #### L 500.4100, L501.5200, L500.4050, L100.0100, L501.9985 #### [facility] [address] [place], [address] ALK PHOS 115 U/L Normal 40-129 [facility] Comment on above: Order Comment: Order Date: 06/11/25 Order Info: [id number]- - CMP Order Info: [id number] - LIPID Order Info: [id number] - MG Performed By: #### L 500.4100, L501.5200, L500.4050, L100.0100, L501.9985 #### [facility] Laboratory [address] [place], [address] ALT [Catalytic activity/Vol] 28 U/L Normal <=46 [facility] Comment on above: Order Comment: Order Date: 06/11/25 Order Info: [id number] - CMP Order Info: [id number] - LIPID Order Info: [id number] - MG Performed By: #### L 500.4100, L501.5200, L500.4050, L100.0100, L501.9985 #### [facility] Laboratory [address] [place], [place], [address] AST [Catalytic activity/Vol] 31 U/L Normal <=37 [facility] Comment on above: Order Comment: Order Date: 06/11/25 Order Info: [id number]- - CMP Order Info: [id number] - LIPID Order Info: - MG Performed By: #### L 500.4100, L501.5200, L500.4050, L100.0100, L501.9985 #### [facility] Laboratory [address] [place], [address] Bilirubin [Mass/Vol] 0.70 mg/dL Normal 0.00-1.30 [facility] Comment on above: Order Comment: Order Date: 06/11/25 Order Info: [id number] - CMP Order Info: [id number] - LIPID Order Info: - MG Performed By: #### L 500.4100, L501.5200, L500.4050, L100.0100, L501.9985 #### [facility] Laboratory [address] [place], [address] BUN/CRE 15.7 RATIO Normal 10-20 [facility] Comment on above: Order Comment: Order Date: 06/11/25 Order Info: [id number] - CMP Order Info: [id number] - LIPID Order Info: [id number] - MG Performed By: #### L 500.4100, L501.5200, L500.4050, L100.0100, L501.9985 #### [facility] [address] [place], [address] Calcium [Mass/Vol] 9.4 mg/dL Normal 7.6-11.0 [facility] Comment on above: Order Comment: Order Date: 06/11/25 Order Info: [id number]- - CMP Order Info: [id number] - LIPID Order Info: [id number] - MG Performed By: #### L 500.4100, L501.5200, L500.4050, L100.0100, L501.9985 #### [facility] [address] [place], [address] Chloride [Moles/Vol] 101 mmol/L Normal 98-108 [facility] Comment on above: Order Comment: Order Date: 06/11/25 Order Info: [id number] - CMP Order Info: [id number] - LIPID Order Info: [id number] - MG Performed By: #### L 500.4100, L501.5200, L500.4050, L100.0100, L501.9985 #### [facility] [address] [place], [address] CO2 [Moles/Vol] 23.7 mmol/L Normal 21.0-32.0 [facility] Comment on above: Order Comment: Order Date: 06/11/25 Order Info: [id number] - CMP Order Info: [id number] - LIPID Order Info: [id number] - MG Performed By: #### L 500.4100, L501.5200, L500.4050, L100.0100, L501.9985 #### [facility] [address] [place], [address] Creatinine [Mass/Vol] 0.91 mg/dL Normal 0.70-1.20 [facility] Comment on above: Order Comment: Order Date: 06/11/25 Order Info: [id number] - CMP Order Info: [id number] - LIPID Order Info: [id number] - MG Performed By: #### L 500.4100, L501.5200, L500.4050, L100.0100, L501.9985 #### [facility] [address] [place], [address] GAP 12 Normal 5-15 [facility] Comment on above: Order Comment: Order Date: 06/11/25 Order Info: [id number] - CMP Order Info: [id number] - LIPID Order Info: [id number] - MG Performed By: #### L 500.4100, L501.5200, L500.4050, L100.0100, L501.9985 #### [facility] [address] [place], [address] GFR/1.73 sq M.predicted among non-blacks MDRD (S/P/Bld) [Vol rate/Area] 82 mL/min/{1.73_m2} Normal >60 [facility] Comment on above: Order Comment: Order Date: 06/11/25 Order Info: [id number] - CMP Order Info: [id number] - LIPID Order Info: [id number] - MG Result Comment: mL/m in/1.73m2 CKD-EPI Creatinine Equation (2020) Performed By: #### L 500.4100, L501.5200, L500.4050, L100.0100, L501.9985 #### [facility] [address] [place], [address] Globulin (S) [Mass/Vol] 2.4 g/dL Normal 2.2-4.2 [facility] Comment on above: Order Comment: Order Date: 06/11/25 Order Info: [id number] - CMP Order Info: [id number] - LIPID Order Info: [id number] - MG Performed By: #### L 500.4100, L501.5200, L500.4050, L100.0100, L501.9985 #### [facility] [address] [place], [address] Glucose [Mass/Vol] 111 mg/dL High 70-99 [facility] Comment on above: Order Comment: Order Date: 06/11/25 Order Info: [id number] - CMP Order Info: [id number] - LIPID Order Info: [id number] - MG Performed By: #### L 500.4100, L501.5200, L500.4050, L100.0100, L501.9985 #### [facility] [address] [place], [address] Potassium [Moles/Vol] 4.2 mmol/L Normal 3.3-5.1 [facility] Comment on above: Order Comment: Order Date: 06/11/25 Order Info: [id number]- - CMP Order Info: [id number] - LIPID Order Info: [id number] - MG Performed By: #### L 500.4100, L501.5200, L500.4050, L100.0100, L501.9985 #### [facility] [address] [place], [address] Sodium [Moles/Vol] 137 mmol/L Normal 133-145 [facility] Comment on above: Order Comment: Order Date: 06/11/25 Order Info: [id number]- - CMP Order Info: [id number] - LIPID Order Info: [id number] - MG Performed By: #### L 500.4100, L501.5200, L500.4050, L100.0100, L501.9985 #### [facility] [address] [place], [place], [address] T PROT 6.7 g/dL Normal 5.9-8.4 [facility] Comment on above: Order Comment: Order Date: 06/11/25 Order Info: [id number] - CMP Order Info: [id number] - LIPID Order Info: [id number] - MG Performed By: #### L 500.4100, L501.5200, L500.4050, L100.0100, L501.9985 #### [facility] [address] [place], [address] Urea nitrogen [Mass/Vol] 14 mg/dL Normal 4-19 [facility] Comment on above: Order Comment: Order Date: 06/11/25 Order Info: [id number] - CMP Order Info: [id number] - LIPID Order Info: [id number] - MG Performed By: #### L 500.4100, L501.5200, L500.4050, L100.0100, L501.9985 #### [facility] Laboratory [address] [place], [place], [address] Eosinophil percentageOrdered By: Fabián Kirkland on 06-11-2025 Eosinophils/100 WBC (Bld) 2.3 % 0-5 [facility] Erythrocyte distribution wid th ratioOrdered By: Fabián Kirkland on 06-11-2025 Erythrocyte distribution width (RBC) [Ratio] 13.6 % 11.6-14.6 [facility] Erythrocyte distribution wid th standard deviationOrdered By: Fabián Kirkland on 06-11-2025 Erythrocyte distribution width (RBC) [Ratio] 44.3 fl High 35.1-43.9 [facility] Glomerular filtration rate ( GFR) estimation/1.73 sq m using serum, plasma, or whole bOrdered By: Fabián Kirkland on 06-11-2025 GFR/1.73 sq M.predicted among non-blacks MDRD (S/P/Bld) [Vol rate/Area] 82 mL/min/{1.73_m2} >60 [facility] Comment on above: mL/min/1.73m2 CKD-EP I Creatinine Equation (2020) Hematocrit Auto (Bld) [Volum e fraction]Ordered By: Fabián Kirkland on 06-11-2025 Hematocrit (Bld) [Volume fraction] 39.8 % Low 40-54 [facility] Hemoglobin A1con 06-11-2025 HbA1c (Bld) [Mass fraction] 6.0 % High <=5.6 [facility] Comment on above: Order Comment: Order Date: 06/11/25 Order Info: [id number] - A1C Result Comment: Norm al < 5.7 % Prediabetic 5.7 - 6.4 % Diabetic >or= 6.5 % Please note range changes. Performed By: #### L 500.4100, L501.5200, L500.4050, L100.0100, L501.9985 #### [facility] Laboratory [address] [place], [address] Hemoglobin A1c percentageOrd ered By: Fabián Kirkland on 06-11-2025 HbA1c (Bld) [Mass fraction] 6.0 % High <5.7 [facility] Comment on above: Normal < 5.7 % Predi abetic 5.7 - 6.4 % Diabetic >or= 6.5 % Please note range changes. Hemoglobin measurementOrdere d By: Fabián Kirkland on 06-11-2025 Hemoglobin (Bld) [Mass/Vol] 13.0 g/dL 13.0-16.5 [facility] Immature granulocytes/100 WB C Auto (Bld)Ordered By: Fabián Kirkland on 06-11-2025 Immature granulocytes/100 WBC (Bld) 0.300 % 0.0-0.9 [facility] Comment on above: IG% - Immature Granu locytes (promyelocytes, myelocytes and metamyelocytes) > 1% indicates that a LEFT SHIFT is Present. Ketones Test strip Ql (U)Ord ered By: Fabián Kirkland on 06-11-2025 Ketones Ql (U) Negative Negative [facility] LDL calc ser/plasOrdered By: Fabián Kirkland on 06-11-2025 Cholesterol in LDL [Mass/Vol] 99 mg/dL [facility] Comment on above: Nrnpoqnntj=399-010 m g/dL & Higher Ncxl=798 mg/dL or greaterFriedwald Equation for LDL-C Laboratory - Chemistry and C hemistry - challengeOrdered By: Fabián Kirkland on 06-11-2025 AST [Catalytic activity/Vol] 31 U/L <38 [facility] Lipid Profileon 06-11-2025 CHOL:HDL 2.76 Normal [facility] Comment on above: Order Comment: Order Date: 06/11/25 Order Info: [id number] - CMP Order Info: [id number] - LIPID Order Info: [id number] - MG Performed By: #### L 500.4100, L501.5200, L500.4050, L100.0100, L501.9985 #### [facility] Laboratory [address] [place], [place], [phone] ([phone]) Cholesterol [Mass/Vol] 189 mg/dL Normal <=200 [facility] Comment on above: Order Comment: Order Date: 06/11/25 Order Info: [id number] - CMP Order Info: - LIPID Order Info: [id number] - MG Result Comment: Chol esterol level, Desirable <200 mg/dL Borderline high cholesterol 200-239 mg/dL High cholesterol >=240 mg/dL Recommendations of the NCEP Adult Treatment Panel for the following risk-cutoff thresholds for the [place] population. Performed By: #### L 500.4100, L501.5200, L500.4050, L100.0100, L501.9985 #### [facility] [address] [place], [place], [address] Cholesterol in HDL [Mass/Vol] 68 mg/dL Normal [facility] Comment on above: Order Comment: Order Date: 06/11/25 Order Info: [id number] - CMP Order Info: [id number] - LIPID Order Info: [id number] - MG Result Comment: [employer] (NCEP) guidelines: <40 mg/dL: Low HDL-cholesterol (major risk factor for CHD) >= 60 mg/dL: High HDL-cholesterol (negative risk factor for CHD) HDL-cholesterol is affected by a number of factors, e.g. smoking, exercise, hormones, sex and age. Performed By: #### L 500.4100, L501.5200, L500.4050, L100.0100, L501.9985 #### [facility] [address] [place], [address] Cholesterol in LDL [Mass/Vol] 99 mg/dL Normal [facility] Comment on above: Order Comment: Order Date: 06/11/25 Order Info: [id number] - CMP Order Info: [id number] - LIPID Order Info: [id number] - MG Result Comment: Bord qbemld=246-006 mg/dL Higher Elqx=746 mg/dL or greater Friedwald Equation for LDL-C Performed By: #### L 500.4100, L501.5200, L500.4050, L100.0100, L501.9985 #### [facility] [address] [place], [address] Cholesterol in VLDL [Mass/Vol] 22 mg/dL Normal 5-40 [facility] Comment on above: Order Comment: Order Date: 06/11/25 Order Info: [id number] CMP Order Info: [id number] - LIPID Order Info: [id number] - MG Performed By: #### L 500.4100, L501.5200, L500.4050, L100.0100, L501.9985 #### [facility] [address] [place], [address] Triglyceride [Mass/Vol] 110 mg/dL Normal [facility] Comment on above: Order Comment: Order Date: 06/11/25 Order Info: [id number] - CMP Order Info: [id number] - LIPID Order Info: [id number] - MG Result Comment: The drugs N-Acetylcysteine and Metamizole may falsely depress this assay. Normal range: <150 mg/dL Borderline High: 150-199 mg/dL High: 200-499 mg/dL Very High: >500 mg/dL Performed By: #### L 500.4100, L501.5200, L500.4050, L100.0100, L501.9985 #### [facility] [address] [place], [place], [address] MCV (mean corpuscular volume ) determinationOrdered By: Fabián Kirkland on 06-11-2025 MCV (RBC) [Entitic vol] 89.6 fL 80-94 [facility] Magnesiumon 06-11-2025 Magnesium [Mass/Vol] 2.3 mg/dL High 1.5-2.2 [facility] Comment on above: Order Comment: Order Date: 06/11/25 Order Info: [id number] - CMP Order Info: [id number] - LIPID Order Info: [id number] - MG Performed By: #### L 500.4100, L501.5200, L500.4050, L100.0100, L501.9985 #### [facility] [address] [place], [place], [id number] Magnesium measurement (mass/ volume)Ordered By: Fabián Kirkland on 06-11-2025 Magnesium (Unsp spec) [Mass/Vol] 2.3 mg/dL High 1.5-2.2 [facility] Mean corpuscular hemoglobin (MCH) determinationOrdered By: Fabián Kirkland on 06-11-2025 MCH (RBC) [Entitic mass] 29.3 pg 27.0-32.0 [facility] Mean corpuscular hemoglobin concentration (MCHC) determinationOrdered By: Fabián Kirkland on 06-11-2025 MCHC (RBC) [Mass/Vol] 32.7 g/dL 32-36 [facility] Mean platelet volume determi nationOrdered By: Fabián Kirkland on 06-11-2025 Platelet mean volume (Bld) [Entitic vol] 9.9 fL 6.2-12.0 [facility] Microscopic analysis of urin e for red blood cells (RBC)Ordered By: Fabián Kirkland on 06-11-2025 Microscopic analysis of urine for red blood cells (RBC) 0 SEEN /hpf 0-5 [facility] Monocyte percentageOrdered B y: Fabián Kirkland on 06-11-2025 Monocytes/100 WBC (Bld) 6.8 % 0-10 [facility] Mucus LM Ql (Urine sed)Order ed By: Fabián Kirkland on 06-11-2025 Mucus Ql (Urine sed) 0 SEEN /hpf [facility] Neutrophil percentageOrdered By: Fabián Kirkland on 06-11-2025 Neutrophils/100 WBC (Bld) 64.4 % 47-70 [facility] Nitrite Test strip Ql (U)Ord ered By: Fabián Kirkland on 06-11-2025 Nitrite Ql (U) Negative Negative [facility] Nucleated red blood cell per centageOrdered By: Fabián Kirkland on 06-11-2025 Nucleated RBC/100 WBC (Bld) [Ratio] 0 % 0-5 [facility] Platelet countOrdered By: Cintia Kirkland on 06-11-2025 Platelets (Bld) [#/Vol] 191 10*3/uL 150-450 [facility] Potassium measurement (mass/ volume)Ordered By: Fabián Kirkland on 06-11-2025 Potassium (Unsp spec) [Mass/Vol] 4.2 mmol/L 3.3-5.1 [facility] Protein Test strip Ql (U)Ord ered By: Fabián Kirkland on 06-11-2025 Protein Ql (U) Negative Negative [facility] RBC Auto (Bld) [#/Vol]Ordere d By: Fabián Kirkland on 06-11-2025 RBC (Bld) [#/Vol] 4.44 10*6/uL Low 4.6-6.2 [facility] Screening total cholesterol/ high density lipoprotein (HDL) cholesterol ratioOrdered By: Fabián Kirkland on 06-11-2025 Cholesterol.total/Choles terol in HDL [Mass ratio] 2.76 {ratio} [facility] Serum creatinine measurement (mass/volume)Ordered By: Fabián Kirkland on 06-11-2025 Creatinine [Mass/Vol] 0.91 mg/dL 0.70-1.20 [facility] Serum globulin measurementOr dered By: Fabián Kirkland on 06-11-2025 Globulin (S) [Mass/Vol] 2.4 g/dL 2.2-4.2 [facility] Serum glucose measurement (m ass/volume)Ordered By: Fabián Kirkland on 06-11-2025 Glucose [Mass/Vol] 111 mg/dL High 70-99 [facility] Serum or plasma alanine neil otransferase (ALT) measurementOrdered By: Fabián Kirkland on 06-11-2025 ALT [Catalytic activity/Vol] 28 U/L <47 [facility] Serum or plasma albumin michael urement (mass/volume)Ordered By: Fabián Kirkland on 06-11-2025 Albumin [Mass/Vol] 4.3 g/dL 3.4-4.8 [facility] Serum or plasma albumin/glob ulin mass ratioOrdered By: Fabián Kirkland on 06-11-2025 Albumin/Globulin [Mass ratio] 1.8 {ratio} 0.9-2.4 [facility] Serum or plasma alkaline kami sphatase measurementOrdered By: Fabián Kirkland on 06-11-2025 ALP [Catalytic activity/Vol] 115 U/L 40-129 [facility] Serum or plasma calcium michael urement (mass/volume)Ordered By: Fabián Kirkland on 06-11-2025 Calcium [Mass/Vol] 9.4 mg/dL 7.6-11.0 [facility] Serum or plasma cholesterol in HDL measurement (mass/volume)Ordered By: Fabián Kirkland on 06-11-2025 Cholesterol in HDL [Mass/Vol] 68 mg/dL >40 [facility] Comment on above: National Cholesterol Education Program (NCEP) guidelines:<40 mg/dL: Low HDL-cholesterol (major risk factor for CHD)>= 60 mg/dL: High HDL-cholesterol (negative risk factor for CHD)HDL-cholesterol is affected by a number of factors, e.g. smoking, exercise, hormones, sex and age. Serum or plasma cholesterol measurement (mass/volume)Ordered By: Fabián Kirkland on 06-11-2025 Cholesterol [Mass/Vol] 189 mg/dL <201 [facility] Comment on above: Cholesterol level, D esirable <200 mg/dLBorderline high cholesterol 200-239 mg/dLHigh cholesterol >=240 mg/dLRecommendations of the NCEP Adult Treatment Panel for the following risk-cutoff thresholds for the [place] population. Serum or plasma urea nitroge n measurement (mass/volume)Ordered By: Fabián Kirkland on 06-11-2025 Urea nitrogen [Mass/Vol] 14 mg/dL 4-19 [facility] Sodium levelOrdered By: Fabián Kirkland on 06-11-2025 Sodium [Moles/Vol] 137 mmol/L 133-145 [facility] Squamous epithelial cells de tection in urine sediment by light microscopyOrdered By: Fabián Kirkland on 06-11-2025 Epithelial cells.squamous LM Ql (Urine sed) 0 SEEN /hpf 0-5 [facility] Total proteinOrdered By: Delta Kirkland on 06-11-2025 Protein [Mass/Vol] 6.7 g/dL 5.9-8.4 [facility] Triglycerides measurementOrd ered By: Fabián Kirkland on 06-11-2025 Triglyceride [Mass/Vol] 110 mg/dL <199 [facility] Comment on above: The drugs N-Acetylcy steine and Metamizole may falsely depress this assay. Normal range: <150 mg/dLBorderline High: 150-199 mg/dLHigh: 200-499 mg/dLVery High: >500 mg/dL Urinalysis, Completeon 06-11 BACTERIA 0 SEEN Normal None Seen [facility] Comment on above: Order Comment: Order Date: 06/11/25 Order Info: [id number] - A1C Performed By: #### L 500.4100, L501.5200, L500.4050, L100.0100, L501.9985 #### [facility] [address] [place], [place], [id number] EPI,SQUAMOUS 0 SEEN Normal 0-5 [facility] Comment on above: Order Comment: Order Date: 06/11/25 Order Info: [id number] - A1C Performed By: #### L 500.4100, L501.5200, L500.4050, L100.0100, L501.9985 #### [facility] [address] [place], [address] Mucus Ql (Urine sed) 0 SEEN Normal [facility] Comment on above: Order Comment: Order Date: 06/11/25 Order Info: [id number] - A1C Performed By: #### L 500.4100, L501.5200, L500.4050, L100.0100, L501.9985 #### [facility] [address] [place], [address] RBC 0 SEEN Normal 0-5 [facility] Comment on above: Order Comment: Order Date: 06/11/25 Order Info: [id number] - A1C Performed By: #### L 500.4100, L501.5200, L500.4050, L100.0100, L501.9985 #### [facility] [address] [place], [address] WBC 0 SEEN Normal 0-5 [facility] Comment on above: Order Comment: Order Date: 06/11/25 Order Info: [id number] - A1C Performed By: #### L 500.4100, L501.5200, L500.4050, L100.0100, L501.9985 #### [facility] [address] [place], [address] Urine clarityOrdered By: Delta Kirkland on 06-11-2025 Clarity (U) Clear Clear [facility] Urine color determinationOrd ered By: Fabián Kirkland on 06-11-2025 Color (U) YELLOW Yellow [facility] Urine glucose detectionOrder ed By: Fabián Kirkland on 06-11-2025 Glucose Ql (U) Normal mg/dl Normal [facility] Urine leukocyte esterase det ection by dipstickOrdered By: Fabián Kirkland on 06-11-2025 Leukocyte esterase Test strip Ql (U) Negative Negative [facility] Urine pHOrdered By: Fabián chung on 06-11-2025 pH (U) 7.0 [pH] 5.0 - 8.0 [facility] Urine sediment bacteria coun t by microscopy (number/high power field)Ordered By: Fabián Kirkland on 06-11-2025 Bacteria LM.HPF (Urine sed) [#/Area] 0 /[HPF] None Seen [facility] Urine specific gravity measu rementOrdered By: Fabián Kirkland on 06-11-2025 Specific gravity (U) [Rel density] 1.010 1.002-1.030 [facility] Urine urobilinogen measureme ntOrdered By: Fabián Kirkland on 06-11-2025 Urobilinogen Ql (U) Normal mg/dl Normal [facility] White blood cell (WBC) count Ordered By: Fabián Kirkland on 06-11-2025 WBC (Bld) [#/Vol] 6.5 10*3/uL 4.4-11.0 [facility] White blood cell countOrdere d By: Fabián Kirkland on 06-11-2025 White blood cell count 0 SEEN /hpf 0-5 [facility] Absolute lymphocyte countOrd ered By: Saulo Huff on 05-10-2025 Lymphocytes Auto (Unsp spec) [#/Vol] 2.12 10*3/uL 0.83-4.51 [facility] Absolute neutrophil countOrd ered By: Saulo Huff on 05-10-2025 Neutrophils (Bld) [#/Vol] 4.0 10*3/uL 2.0-7.7 [facility] Automated lymphocyte count a s percentage of total leukocytesOrdered By: Saulo Huff on 05-10-2025 Lymphocytes/100 WBC Auto (Unsp spec) 30.7 % 19-41 [facility] Basophil percentageOrdered B y: Saulo Huff on 05-10-2025 Basophils/100 WBC (Bld) 0.6 % 0-1 [facility] CBC W/Diff, Automatedon Absolute Lymph 2.12 X10 3/uL Normal 0.83-4.51 [facility] Comment on above: Performed By: #### L 500.4100, L501.5200, L500.4050, L100.0100, L501.9985 #### [facility] [place], [address] Absolute Neut 4.0 X10 3/uL Normal 2.0-7.7 [facility] Comment on above: Performed By: #### L 500.4100, L501.5200, L500.4050, L100.0100, L501.9985 #### [facility] [address] [place], [address] Basophils/100 WBC (Bld) 0.6 % Normal 0-1 [facility] Comment on above: Performed By: #### L 500.4100, L501.5200, L500.4050, L100.0100, L501.9985 #### [facility] [address] [place], [address] Eosinophils/100 WBC (Bld) 2.8 % Normal 0-5 [facility] Comment on above: Performed By: #### L 500.4100, L501.5200, L500.4050, L100.0100, L501.9985 #### [facility] [address] [place], [address] Erythrocyte distribution width (RBC) [Ratio] 13.2 % Normal 11.6-14.6 [facility] Comment on above: Performed By: #### L 500.4100, L501.5200, L500.4050, L100.0100, L501.9985 #### [facility] [address] [place], [address] Hematocrit (Bld) [Volume fraction] 41.4 % Normal 40-54 [facility] Comment on above: Performed By: #### L 500.4100, L501.5200, L500.4050, L100.0100, L501.9985 #### [facility] [address] [place], [address] Hemoglobin (Bld) [Mass/Vol] 13.7 g/dL Normal 13.0-16.5 [facility] Comment on above: Performed By: #### L 500.4100, L501.5200, L500.4050, L100.0100, L501.9985 #### [facility] [address] [place], [address] IG% 0.300 Normal 0.0-0.9 [facility] Comment on above: Result Comment: IG% - Immature Granulocytes (promyelocytes, myelocytes and metamyelocytes) > 1% indicates that a LEFT SHIFT is Present. Performed By: #### L 500.4100, L501.5200, L500.4050, L100.0100, L501.9985 #### [facility] [address] [place], [address] Lymphocytes/100 WBC (Bld) 30.7 % Normal 19-41 [facility] Comment on above: Performed By: #### L 500.4100, L501.5200, L500.4050, L100.0100, L501.9985 #### [facility] [address] [place], [address] MCH (RBC) [Entitic mass] 29.3 pg Normal 27.0-32.0 [facility] Comment on above: Performed By: #### L 500.4100, L501.5200, L500.4050, L100.0100, L501.9985 #### [facility] [address] [place], [address] MCHC (RBC) [Mass/Vol] 33.1 g/dL Normal 32-36 [facility] Comment on above: Performed By: #### L 500.4100, L501.5200, L500.4050, L100.0100, L501.9985 #### [facility] [address] [place], [address] MCV (RBC) [Entitic vol] 88.7 fL Normal 80-94 [facility] Comment on above: Performed By: #### L 500.4100, L501.5200, L500.4050, L100.0100, L501.9985 #### [facility] [address] [place], [address] Monocytes/100 WBC (Bld) 7.8 % Normal 0-10 [facility] Comment on above: Performed By: #### L 500.4100, L501.5200, L500.4050, L100.0100, L501.9985 #### [facility] [address] [place], [address] Neutrophils/100 WBC (Bld) 57.8 % Normal 47-70 [facility] Comment on above: Performed By: #### L 500.4100, L501.5200, L500.4050, L100.0100, L501.9985 #### [facility] [address] [place], [address] Nucleated RBC (Bld) [#/Vol] 0 10*3/uL Normal 0-5 [facility] Comment on above: Performed By: #### L 500.4100, L501.5200, L500.4050, L100.0100, L501.9985 #### [facility] [address] [place], [address] Platelet mean volume (Bld) [Entitic vol] 10.2 fL Normal 6.2-12.0 [facility] Comment on above: Performed By: #### L 500.4100, L501.5200, L500.4050, L100.0100, L501.9985 #### [facility] [address] [place], [address] Platelets (Bld) [#/Vol] 208 10*3/uL Normal 150-450 [facility] Comment on above: Performed By: #### L 500.4100, L501.5200, L500.4050, L100.0100, L501.9985 #### [facility] [address] [place], [address] RBC (Bld) [#/Vol] 4.67 10*6/uL Normal 4.6-6.2 [facility] Comment on above: Performed By: #### L 500.4100, L501.5200, L500.4050, L100.0100, L501.9985 #### [facility] [address] [place], [address] RDW SD 42.6 fl Normal 35.1-43.9 [facility] Comment on above: Performed By: #### L 500.4100, L501.5200, L500.4050, L100.0100, L501.9985 #### [facility] [address] [place], [address] WBC (Bld) [#/Vol] 6.9 10*3/uL Normal 4.4-11.0 [facility] Comment on above: Performed By: #### L 500.4100, L501.5200, L500.4050, L100.0100, L501.9985 #### [facility] [address] [place], [address] CRPon 05-10-2025 C-REACTIVE PROT < 3.00 Normal 0.0-3.0 [facility] Comment on above: Performed By: #### L 500.4100, L501.5200, L500.4050, L100.0100, L501.9985 #### [facility] [address] [place], [address] Eosinophil percentageOrdered By: Saulo Huff on 05-10-2025 Eosinophils/100 WBC (Bld) 2.8 % 0-5 [facility] Erythrocyte Sed Rateon 05-10 SED RATE 8 mm/hr Normal 0-20 [facility] Comment on above: Performed By: #### L 500.4100, L501.5200, L500.4050, L100.0100, L501.9985 #### [facility] [address] [place], [address] Erythrocyte distribution wid th ratioOrdered By: Saulo Huff on 05-10-2025 Erythrocyte distribution width (RBC) [Ratio] 13.2 % 11.6-14.6 [facility] Erythrocyte distribution wid th standard deviationOrdered By: Saulo Huff on 05-10-2025 Erythrocyte distribution width (RBC) [Ratio] 42.6 fl 35.1-43.9 [facility] Erythrocyte sedimentation ra teOrdered By: Saulo Huff on 05-10-2025 ESR (Bld) [Velocity] 8 mm/h 0-20 [facility] Hematocrit Auto (Bld) [Volum e fraction]Ordered By: Saulo Huff on 05-10-2025 Hematocrit (Bld) [Volume fraction] 41.4 % 40-54 [facility] Hemoglobin measurementOrdere d By: Saulo Huff on 05-10-2025 Hemoglobin (Bld) [Mass/Vol] 13.7 g/dL 13.0-16.5 [facility] Immature granulocytes/100 WB C Auto (Bld)Ordered By: Saulo Huff on 05-10-2025 Immature granulocytes/100 WBC (Bld) 0.300 % 0.0-0.9 [facility] Comment on above: IG% - Immature Granu locytes (promyelocytes, myelocytes and metamyelocytes) > 1% indicates that a LEFT SHIFT is Present. MCV (mean corpuscular volume ) determinationOrdered By: Saulo Huff on 05-10-2025 MCV (RBC) [Entitic vol] 88.7 fL 80-94 [facility] Mean corpuscular hemoglobin (MCH) determinationOrdered By: Saulo Huff on 05-10-2025 MCH (RBC) [Entitic mass] 29.3 pg 27.0-32.0 [facility] Mean corpuscular hemoglobin concentration (MCHC) determinationOrdered By: Saulo Huff on 05-10-2025 MCHC (RBC) [Mass/Vol] 33.1 g/dL 32-36 [facility] Mean platelet volume determi nationOrdered By: Saulo Huff on 05-10-2025 Platelet mean volume (Bld) [Entitic vol] 10.2 fL 6.2-12.0 [facility] Monocyte percentageOrdered B y: Saulo Huff on 05-10-2025 Monocytes/100 WBC (Bld) 7.8 % 0-10 [facility] Neutrophil percentageOrdered By: Saulo Huff on 05-10-2025 Neutrophils/100 WBC (Bld) 57.8 % 47-70 [facility] Nucleated red blood cell per centageOrdered By: Saulo Huff on 05-10-2025 Nucleated RBC/100 WBC (Bld) [Ratio] 0 % 0-5 [facility] Platelet countOrdered By: Ra logan Huff on 05-10-2025 Platelets (Bld) [#/Vol] 208 10*3/uL 150-450 [facility] RBC Auto (Bld) [#/Vol]Ordere d By: Saulo Huff on 05-10-2025 RBC (Bld) [#/Vol] 4.67 10*6/uL 4.6-6.2 [facility] Serum or plasma C reactive p rotein measurement (mass/volume)Ordered By: Saulo Huff on 05-10-2025 CRP [Mass/Vol] mg/L 0.0-3.0 [facility] White blood cell (WBC) count Ordered By: Saulo Huff on 05-10-2025 WBC (Bld) [#/Vol] 6.9 10*3/uL 4.4-11.0 [facility] Absolute lymphocyte countOrd ered By: Fabián Kirkland on 02-26-2025 Lymphocytes Auto (Unsp spec) [#/Vol] 1.92 10*3/uL 0.83-4.51 [facility] Absolute neutrophil countOrd ered By: Fabián Kirkland on 02-26-2025 Neutrophils (Bld) [#/Vol] 3.2 10*3/uL 2.0-7.7 [facility] Anion gap in Serum or Plasma Ordered By: Fabián Kirkland on 02-26-2025 Anion gap [Moles/Vol] 13 mmol/L 5-15 [facility] Automated lymphocyte count a s percentage of total leukocytesOrdered By: Fabián Kirkland on 02-26-2025 Lymphocytes/100 WBC Auto (Unsp spec) 33.7 % 19-41 [facility] BUN/creatinine ratioOrdered By: Fabián Apariciobenoit on 02-26-2025 Urea nitrogen/Creatinine [Mass ratio] 20.2 mg/mg High 10-20 [facility] Basophil percentageOrdered B y: Fabián Kirkland on 02-26-2025 Basophils/100 WBC (Bld) 0.7 % 0-1 [facility] Bilirubin Test strip Ql (U)O rdered By: Fabián Aliceasheldon on 02-26-2025 Bilirubin Ql (U) Negative Negative [facility] Bilirubin, totalOrdered By: Fabián Aliceasheldon on 02-26-2025 Bilirubin [Mass/Vol] 0.72 mg/dL 0.00-1.30 [facility] CBC W/Diff, Automatedon 02-08 Absolute Lymph 1.92 X10 3/uL Normal 0.83-4.51 [facility] Comment on above: Order Comment: Order Date: 06/11/25 Order Info: [id number] - A1C Performed By: #### L 500.4100, L501.5200, L500.4050, L100.0100, L501.9985 #### [facility] [address] [place], [address] Absolute Neut 3.2 X10 3/uL Normal 2.0-7.7 [facility] Comment on above: Order Comment: Order Date: 06/11/25 Order Info: [id number] - A1C Performed By: #### L 500.4100, L501.5200, L500.4050, L100.0100, L501.9985 #### [facility] [address] [place], [address] Basophils/100 WBC (Bld) 0.7 % Normal 0-1 [facility] Comment on above: Order Comment: Order Date: 06/11/25 Order Info: [id number] - A1C Performed By: #### L 500.4100, L501.5200, L500.4050, L100.0100, L501.9985 #### [facility] [address] [place], [address] Eosinophils/100 WBC (Bld) 1.9 % Normal 0-5 [facility] Comment on above: Order Comment: Order Date: 06/11/25 Order Info: 4548-4 - A1C Performed By: #### L 500.4100, L501.5200, L500.4050, L100.0100, L501.9985 #### [facility] [address] [place], [address] Erythrocyte distribution width (RBC) [Ratio] 13.0 % Normal 11.6-14.6 [facility] Comment on above: Order Comment: Order Date: 06/11/25 Order Info: 4548-4 - A1C Performed By: #### L 500.4100, L501.5200, L500.4050, L100.0100, L501.9985 #### [facility] Laboratory [address] [place], [address] Hematocrit (Bld) [Volume fraction] 42.9 % Normal 40-54 [facility] Comment on above: Order Comment: Order Date: 06/11/25 Order Info: 4548-4 - A1C Performed By: #### L 500.4100, L501.5200, L500.4050, L100.0100, L501.9985 #### [facility] Laboratory [address] [place], [address] Hemoglobin (Bld) [Mass/Vol] 14.0 g/dL Normal 13.0-16.5 [facility] Comment on above: Order Comment: Order Date: 06/11/25 Order Info: 4548-4 - A1C Performed By: #### L 500.4100, L501.5200, L500.4050, L100.0100, L501.9985 #### [facility] Laboratory [address] [place], [address] IG% 0.400 Normal 0.0-0.9 [facility] Comment on above: Order Comment: Order Date: 06/11/25 Order Info: 4548-4 - A1C Result Comment: IG% - Immature Granulocytes (promyelocytes, myelocytes and metamyelocytes) > 1% indicates that a LEFT SHIFT is Present. Performed By: #### L 500.4100, L501.5200, L500.4050, L100.0100, L501.9985 #### [facility] Laboratory [address] [place], [address] Lymphocytes/100 WBC (Bld) 33.7 % Normal 19-41 [facility] Comment on above: Order Comment: Order Date: 06/11/25 Order Info: 4548-4 - A1C Performed By: #### L 500.4100, L501.5200, L500.4050, L100.0100, L501.9985 #### [facility] Laboratory [address] [place], [address] MCH (RBC) [Entitic mass] 29.3 pg Normal 27.0-32.0 [facility] Comment on above: Order Comment: Order Date: 06/11/25 Order Info: 4548-4 - A1C Performed By: #### L 500.4100, L501.5200, L500.4050, L100.0100, L501.9985 #### [facility] Laboratory [address] [place], [address] MCHC (RBC) [Mass/Vol] 32.6 g/dL Normal 32-36 [facility] Comment on above: Order Comment: Order Date: 06/11/25 Order Info: 4548-4 - A1C Performed By: #### L 500.4100, L501.5200, L500.4050, L100.0100, L501.9985 #### [facility] Laboratory [address] [place], [address] MCV (RBC) [Entitic vol] 89.7 fL Normal 80-94 [facility] Comment on above: Order Comment: Order Date: 06/11/25 Order Info: 4548-4 - A1C Performed By: #### L 500.4100, L501.5200, L500.4050, L100.0100, L501.9985 #### [facility] Laboratory [address] [place], [address] Monocytes/100 WBC (Bld) 8.1 % Normal 0-10 [facility] Comment on above: Order Comment: Order Date: 06/11/25 Order Info: 4548-4 - A1C Performed By: #### L 500.4100, L501.5200, L500.4050, L100.0100, L501.9985 #### [facility] Laboratory [address] [place], [address] Neutrophils/100 WBC (Bld) 55.2 % Normal 47-70 [facility] Comment on above: Order Comment: Order Date: 06/11/25 Order Info: 4548-4 - A1C Performed By: #### L 500.4100, L501.5200, L500.4050, L100.0100, L501.9985 #### [facility] Laboratory [address] [place], [address] Nucleated RBC (Bld) [#/Vol] 0 10*3/uL Normal 0-5 [facility] Comment on above: Order Comment: Order Date: 06/11/25 Order Info: 4548-4 - A1C Performed By: #### L 500.4100, L501.5200, L500.4050, L100.0100, L501.9985 #### [facility] [address] [place], [address] Platelet mean volume (Bld) [Entitic vol] 10.5 fL Normal 6.2-12.0 [facility] Comment on above: Order Comment: Order Date: 06/11/25 Order Info: 4548-4 - A1C Performed By: #### L 500.4100, L501.5200, L500.4050, L100.0100, L501.9985 #### [facility] Laboratory [address] [place], [address] Platelets (Bld) [#/Vol] 218 10*3/uL Normal 150-450 [facility] Comment on above: Order Comment: Order Date: 06/11/25 Order Info: 4548-4 - A1C Performed By: #### L 500.4100, L501.5200, L500.4050, L100.0100, L501.9985 #### [facility] Laboratory [address] [place], [address] RBC (Bld) [#/Vol] 4.78 10*6/uL Normal 4.6-6.2 [facility] Comment on above: Order Comment: Order Date: 06/11/25 Order Info: 4548-4 - A1C Performed By: #### L 500.4100, L501.5200, L500.4050, L100.0100, L501.9985 #### [facility] Laboratory [address] [place], [address] RDW SD 42.6 fl Normal 35.1-43.9 [facility] Comment on above: Order Comment: Order Date: 06/11/25 Order Info: 4548-4 - A1C Performed By: #### L 500.4100, L501.5200, L500.4050, L100.0100, L501.9985 #### [facility] Laboratory [address] [place], [address] WBC (Bld) [#/Vol] 5.7 10*3/uL Normal 4.4-11.0 [facility] Comment on above: Order Comment: Order Date: 06/11/25 Order Info: 4548-4 - A1C Performed By: #### L 500.4100, L501.5200, L500.4050, L100.0100, L501.9985 #### [facility] Laboratory [address] [place], [address] Calculated very low density lipoprotein (VLDL) cholesterol measurementOrdered By: Fabián Kirkland on 02-26-2025 Calculated very low density lipoprotein (VLDL) cholesterol measurement 21 mg/dL 5-40 [facility] Carbon dioxide, total [Moles /volume] in Central venous bloodOrdered By: Fabián Kirkland on 02-26-2025 CO2 [Moles/Vol] 21.6 mmol/L 21.0-32.0 [facility] Chloride assayOrdered By: Cintia Kirkland on 02-26-2025 Chloride [Moles/Vol] 102 mmol/L 98-108 [facility] Comprehensive Metabolic Prof ilon 02-26-2025 Albumin [Mass/Vol] 4.3 g/dL Normal 3.4-4.8 [facility] Comment on above: Order Comment: Order Date: 06/11/25 Order Info: 4548-4 - A1C Performed By: #### L 500.4100, L501.5200, L500.4050, L100.0100, L501.9985 #### [facility] Laboratory [address] [place], [address] Albumin/Globulin [Mass ratio] 1.7 {ratio} Normal 0.9-2.4 [facility] Comment on above: Order Comment: Order Date: 06/11/25 Order Info: 4548-4 - A1C Performed By: #### L 500.4100, L501.5200, L500.4050, L100.0100, L501.9985 #### [facility] Laboratory [address] [place], [address] ALK PHOS 103 U/L Normal 40-129 [facility] Comment on above: Order Comment: Order Date: 06/11/25 Order Info: 4548-4 - A1C Performed By: #### L 500.4100, L501.5200, L500.4050, L100.0100, L501.9985 #### [facility] Laboratory [address] [place], [address] ALT [Catalytic activity/Vol] 29 U/L Normal <=46 [facility] Comment on above: Order Comment: Order Date: 06/11/25 Order Info: 4548-4 - A1C Performed By: #### L 500.4100, L501.5200, L500.4050, L100.0100, L501.9985 #### [facility] Laboratory [address] [place], [address] AST [Catalytic activity/Vol] 37 U/L Normal <=37 [facility] Comment on above: Order Comment: Order Date: 06/11/25 Order Info: 4548-4 - A1C Performed By: #### L 500.4100, L501.5200, L500.4050, L100.0100, L501.9985 #### [facility] Laboratory [address] [place], [address] Bilirubin [Mass/Vol] 0.72 mg/dL Normal 0.00-1.30 [facility] Comment on above: Order Comment: Order Date: 06/11/25 Order Info: 4548-4 - A1C Performed By: #### L 500.4100, L501.5200, L500.4050, L100.0100, L501.9985 #### [facility] Laboratory [address] [place], [address] BUN/CRE 20.2 RATIO High 10-20 [facility] Comment on above: Order Comment: Order Date: 06/11/25 Order Info: 4548-4 - A1C Performed By: #### L 500.4100, L501.5200, L500.4050, L100.0100, L501.9985 #### [facility] Laboratory [address] [place], [address] Calcium [Mass/Vol] 9.5 mg/dL Normal 7.6-11.0 [facility] Comment on above: Order Comment: Order Date: 06/11/25 Order Info: 4548-4 - A1C Performed By: #### L 500.4100, L501.5200, L500.4050, L100.0100, L501.9985 #### [facility] [address] [place], [address] Chloride [Moles/Vol] 102 mmol/L Normal 98-108 [facility] Comment on above: Order Comment: Order Date: 06/11/25 Order Info: 4548-4 - A1C Performed By: #### L 500.4100, L501.5200, L500.4050, L100.0100, L501.9985 #### [facility] [address] [place], [address] CO2 [Moles/Vol] 21.6 mmol/L Normal 21.0-32.0 [facility] Comment on above: Order Comment: Order Date: 06/11/25 Order Info: 4548-4 - A1C Performed By: #### L 500.4100, L501.5200, L500.4050, L100.0100, L501.9985 #### [facility] Laboratory [address] [place], [address] Creatinine [Mass/Vol] 0.89 mg/dL Normal 0.70-1.20 [facility] Comment on above: Order Comment: Order Date: 06/11/25 Order Info: 4548-4 - A1C Performed By: #### L 500.4100, L501.5200, L500.4050, L100.0100, L501.9985 #### [facility] Laboratory [address] [place], [address] GAP 13 Normal 5-15 [facility] Comment on above: Order Comment: Order Date: 06/11/25 Order Info: 4548-4 - A1C Performed By: #### L 500.4100, L501.5200, L500.4050, L100.0100, L501.9985 #### [facility] Laboratory [address] [place], [address] GFR/1.73 sq M.predicted among non-blacks MDRD (S/P/Bld) [Vol rate/Area] 85 mL/min/{1.73_m2} Normal >60 [facility] Comment on above: Order Comment: Order Date: 06/11/25 Order Info: 4548-4 - A1C Result Comment: mL/m in/1.73m2 CKD-EPI Creatinine Equation (2020) Performed By: #### L 500.4100, L501.5200, L500.4050, L100.0100, L501.9985 #### [facility] Laboratory [address] [place], [address] Globulin (S) [Mass/Vol] 2.6 g/dL Normal 2.2-4.2 [facility] Comment on above: Order Comment: Order Date: 06/11/25 Order Info: 4548-4 - A1C Performed By: #### L 500.4100, L501.5200, L500.4050, L100.0100, L501.9985 #### [facility] Laboratory [address] [place], [address] Glucose [Mass/Vol] 103 mg/dL High 70-99 [facility] Comment on above: Order Comment: Order Date: 06/11/25 Order Info: 4548-4 - A1C Performed By: #### L 500.4100, L501.5200, L500.4050, L100.0100, L501.9985 #### [facility] Laboratory [address] [place], [address] Potassium [Moles/Vol] 3.9 mmol/L Normal 3.3-5.1 [facility] Comment on above: Order Comment: Order Date: 06/11/25 Order Info: 4548-4 - A1C Performed By: #### L 500.4100, L501.5200, L500.4050, L100.0100, L501.9985 #### [facility] Laboratory [address] [place], [address] Sodium [Moles/Vol] 137 mmol/L Normal 133-145 [facility] Comment on above: Order Comment: Order Date: 06/11/25 Order Info: 4548-4 - A1C Performed By: #### L 500.4100, L501.5200, L500.4050, L100.0100, L501.9985 #### [facility] Laboratory [address] [place], [address] T PROT 7.0 g/dL Normal 5.9-8.4 [facility] Comment on above: Order Comment: Order Date: 06/11/25 Order Info: 4548-4 - A1C Performed By: #### L 500.4100, L501.5200, L500.4050, L100.0100, L501.9985 #### [facility] Laboratory [address] [facility] [place], [address] Urea nitrogen [Mass/Vol] 18 mg/dL Normal 4-19 [facility] Comment on above: Order Comment: Order Date: 06/11/25 Order Info: 4548-4 - A1C Performed By: #### L 500.4100, L501.5200, L500.4050, L100.0100, L501.9985 #### [facility] Laboratory [address] [facility] [place], [address] Eosinophil percentageOrdered By: Fabián Kirkland on 02-26-2025 Eosinophils/100 WBC (Bld) 1.9 % 0-5 [facility] Erythrocyte distribution wid th ratioOrdered By: Fabián Kirkland on 02-26-2025 Erythrocyte distribution width (RBC) [Ratio] 13.0 % 11.6-14.6 [facility] Erythrocyte distribution wid th standard deviationOrdered By: Fabián Kirkland on 02-26-2025 Erythrocyte distribution width (RBC) [Ratio] 42.6 fl 35.1-43.9 [facility] Glomerular filtration rate ( GFR) estimation/1.73 sq m using serum, plasma, or whole bOrdered By: Fabián Kirkland on 02-26-2025 GFR/1.73 sq M.predicted among non-blacks MDRD (S/P/Bld) [Vol rate/Area] 85 mL/min/{1.73_m2} >60 [facility] Comment on above: mL/min/1.73m2 CKD-EP I Creatinine Equation (2020) Hematocrit Auto (Bld) [Volum e fraction]Ordered By: Fabián Kirkland on 02-26-2025 Hematocrit (Bld) [Volume fraction] 42.9 % 40-54 [facility] Hemoglobin A1con 02-26-2025 HbA1c (Bld) [Mass fraction] 5.9 % High <=5.6 [facility] Comment on above: Order Comment: Order Date: 06/11/25 Order Info: 4548-4 - A1C Result Comment: Norm al < 5.7 % Prediabetic 5.7 - 6.4 % Diabetic >or= 6.5 % Please note range changes. Performed By: #### L 500.4100, L501.5200, L500.4050, L100.0100, L501.9985 #### [facility] Laboratory [address] [place] [address], [id number] Hemoglobin A1c percentageOrd ered By: Fabián Kirkland on 02-26-2025 HbA1c (Bld) [Mass fraction] 5.9 % High <5.7 [facility] Comment on above: Normal < 5.7 % Predi abetic 5.7 - 6.4 % Diabetic >or= 6.5 % Please note range changes. Hemoglobin measurementOrdere d By: Fabián Kirkland on 02-26-2025 Hemoglobin (Bld) [Mass/Vol] 14.0 g/dL 13.0-16.5 [facility] Immature granulocytes/100 WB C Auto (Bld)Ordered By: Fabián Kirkland on 02-26-2025 Immature granulocytes/100 WBC (Bld) 0.400 % 0.0-0.9 [facility] Comment on above: IG% - Immature Granu locytes (promyelocytes, myelocytes and metamyelocytes) > 1% indicates that a LEFT SHIFT is Present. Ketones Test strip Ql (U)Ord ered By: Fabián Kirkland on 02-26-2025 Ketones Ql (U) Negative Negative [facility] LDL calc ser/plasOrdered By: Fabián Kirkland on 02-26-2025 Cholesterol in LDL [Mass/Vol] 87 mg/dL [facility] Comment on above: Qshiucmwfx=255-141 m g/dL & Higher Ytvd=908 mg/dL or greater Laboratory - Chemistry and C hemistry - challengeOrdered By: Fabián Kirkland on 02-26-2025 AST [Catalytic activity/Vol] 37 U/L <38 [facility] Lipid Profileon 02-26-2025 CHOL:HDL 2.76 Normal [facility] Comment on above: Order Comment: Order Date: 06/11/25 Order Info: 4548-4 - A1C Performed By: #### L 500.4100, L501.5200, L500.4050, L100.0100, L501.9985 #### [facility] Laboratory [address] [place], [place], [address] Cholesterol [Mass/Vol] 170 mg/dL Normal <=200 [facility] Comment on above: Order Comment: Order Date: 06/11/25 Order Info: 4548-4 - A1C Result Comment: Chol esterol level, Desirable <200 mg/dL Borderline high cholesterol 200-239 mg/dL High cholesterol >=240 mg/dL Recommendations of the NCEP Adult Treatment Panel for the following risk-cutoff thresholds for the [place] population. Performed By: #### L 500.4100, L501.5200, L500.4050, L100.0100, L501.9985 #### [facility] Laboratory [address] [place], [place], [address] Cholesterol in HDL [Mass/Vol] 62 mg/dL Normal [facility] Comment on above: Order Comment: Order Date: 06/11/25 Order Info: 4548-4 - A1C Result Comment: Heike onal Cholesterol Education Program (NCEP) guidelines: <40 mg/dL: Low HDL-cholesterol (major risk factor for CHD) >= 60 mg/dL: High HDL-cholesterol (negative risk factor for CHD) HDL-cholesterol is affected by a number of factors, e.g. smoking, exercise, hormones, sex and age. Performed By: #### L 500.4100, L501.5200, L500.4050, L100.0100, L501.9985 #### [facility] Laboratory [address] [place], [address] Cholesterol in LDL [Mass/Vol] 87 mg/dL Normal [facility] Comment on above: Order Comment: Order Date: 06/11/25 Order Info: 4548-4 - A1C Result Comment: Bord htmbop=673-111 mg/dL Higher Mkqs=401 mg/dL or greater Performed By: #### L 500.4100, L501.5200, L500.4050, L100.0100, L501.9985 #### [facility] Laboratory [address] [place], [address] Cholesterol in VLDL [Mass/Vol] 21 mg/dL Normal 5-40 [facility] Comment on above: Order Comment: Order Date: 06/11/25 Order Info: 4548-4 - A1C Performed By: #### L 500.4100, L501.5200, L500.4050, L100.0100, L501.9985 #### [facility] Laboratory [address] [place], [address] Triglyceride [Mass/Vol] 107 mg/dL Normal [facility] Comment on above: Order Comment: Order Date: 06/11/25 Order Info: 4548-4 - A1C Result Comment: The drugs N-Acetylcysteine and Metamizole may falsely depress this assay. Normal range: <150 mg/dL Borderline High: 150-199 mg/dL High: 200-499 mg/dL Very High: >500 mg/dL Performed By: #### L 500.4100, L501.5200, L500.4050, L100.0100, L501.9985 #### [facility] [address] [place], [address] MCV (mean corpuscular volume ) determinationOrdered By: Fabián Kirkland on 02-26-2025 MCV (RBC) [Entitic vol] 89.7 fL 80-94 [facility] Magnesiumon 02-26-2025 Magnesium [Mass/Vol] 2.2 mg/dL Normal 1.5-2.2 [facility] Comment on above: Order Comment: Order Date: 06/11/25 Order Info: 4548-4 - A1C Performed By: #### L 500.4100, L501.5200, L500.4050, L100.0100, L501.9985 #### [facility] Laboratory [address] [place], [address] Magnesium measurement (mass/ volume)Ordered By: Fabián Kirkland on 02-26-2025 Magnesium (Unsp spec) [Mass/Vol] 2.2 mg/dL 1.5-2.2 [facility] Mean corpuscular hemoglobin (MCH) determinationOrdered By: Fabián Kirkland on 02-26-2025 MCH (RBC) [Entitic mass] 29.3 pg 27.0-32.0 [facility] Mean corpuscular hemoglobin concentration (MCHC) determinationOrdered By: Fabián Kirkland on 02-26-2025 MCHC (RBC) [Mass/Vol] 32.6 g/dL 32-36 [facility] Mean platelet volume determi nationOrdered By: Fabián Kirkland on 02-26-2025 Platelet mean volume (Bld) [Entitic vol] 10.5 fL 6.2-12.0 [facility] Microscopic analysis of urin e for red blood cells (RBC)Ordered By: Fabián Kirkland on 02-26-2025 Microscopic analysis of urine for red blood cells (RBC) 0 SEEN /hpf 0-5 [facility] Monocyte percentageOrdered B y: Fabián Kirkland on 02-26-2025 Monocytes/100 WBC (Bld) 8.1 % 0-10 [facility] Mucus LM Ql (Urine sed)Order ed By: Fabián Kirkland on 02-26-2025 Mucus Ql (Urine sed) 0 SEEN /hpf [facility] Neutrophil percentageOrdered By: Fabián Kirkland on 02-26-2025 Neutrophils/100 WBC (Bld) 55.2 % 47-70 [facility] Nitrite Test strip Ql (U)Ord ered By: Fabián Kirkland on 02-26-2025 Nitrite Ql (U) Negative Negative [facility] Nucleated red blood cell per centageOrdered By: Fabián Kirkland on 02-26-2025 Nucleated RBC/100 WBC (Bld) [Ratio] 0 % 0-5 [facility] Platelet countOrdered By: Cintia Kirkland on 02-26-2025 Platelets (Bld) [#/Vol] 218 10*3/uL 150-450 [facility] Potassium measurement (mass/ volume)Ordered By: Fabián Kirkland on 02-26-2025 Potassium (Unsp spec) [Mass/Vol] 3.9 mmol/L 3.3-5.1 [facility] Protein Test strip Ql (U)Ord ered By: Fabián Kirkland on 02-26-2025 Protein Ql (U) Negative Negative [facility] RBC Auto (Bld) [#/Vol]Ordere d By: Fabián Kirkland on 02-26-2025 RBC (Bld) [#/Vol] 4.78 10*6/uL 4.6-6.2 [facility] Screening total cholesterol/ high density lipoprotein (HDL) cholesterol ratioOrdered By: Fabián Kirkland on 02-26-2025 Cholesterol.total/Choles terol in HDL [Mass ratio] 2.76 {ratio} [facility] Serum creatinine measurement (mass/volume)Ordered By: Fabián Kirkland on 02-26-2025 Creatinine [Mass/Vol] 0.89 mg/dL 0.70-1.20 [facility] Serum globulin measurementOr dered By: Fabián Kirkland on 02-26-2025 Globulin (S) [Mass/Vol] 2.6 g/dL 2.2-4.2 [facility] Serum glucose measurement (m ass/volume)Ordered By: Fabián Kirkland on 02-26-2025 Glucose [Mass/Vol] 103 mg/dL High 70-99 [facility] Serum or plasma alanine neil otransferase (ALT) measurementOrdered By: Fabián Kirkland on 02-26-2025 ALT [Catalytic activity/Vol] 29 U/L <47 [facility] Serum or plasma albumin michael urement (mass/volume)Ordered By: Fabián Kirkland on 02-26-2025 Albumin [Mass/Vol] 4.3 g/dL 3.4-4.8 [facility] Serum or plasma albumin/glob ulin mass ratioOrdered By: Fabián Kirkland on 02-26-2025 Albumin/Globulin [Mass ratio] 1.7 {ratio} 0.9-2.4 [facility] Serum or plasma alkaline kami sphatase measurementOrdered By: Fabián Kirkland on 02-26-2025 ALP [Catalytic activity/Vol] 103 U/L 40-129 [facility] Serum or plasma calcium michael urement (mass/volume)Ordered By: Fabián Kirkland on 02-26-2025 Calcium [Mass/Vol] 9.5 mg/dL 7.6-11.0 [facility] Serum or plasma cholesterol in HDL measurement (mass/volume)Ordered By: Fabián Kirkland on 02-26-2025 Cholesterol in HDL [Mass/Vol] 62 mg/dL >40 [facility] Comment on above: National Cholesterol Education Program (NCEP) guidelines:<40 mg/dL: Low HDL-cholesterol (major risk factor for CHD)>= 60 mg/dL: High HDL-cholesterol (negative risk factor for CHD)HDL-cholesterol is affected by a number of factors, e.g. smoking, exercise, hormones, sex and age. Serum or plasma cholesterol measurement (mass/volume)Ordered By: Fabián Kirkland on 02-26-2025 Cholesterol [Mass/Vol] 170 mg/dL <201 [facility] Comment on above: Cholesterol level, D esirable <200 mg/dLBorderline high cholesterol 200-239 mg/dLHigh cholesterol >=240 mg/dLRecommendations of the NCEP Adult Treatment Panel for the following risk-cutoff thresholds for the [place] population. Serum or plasma urea nitroge n measurement (mass/volume)Ordered By: Fabián Kirkland on 02-26-2025 Urea nitrogen [Mass/Vol] 18 mg/dL 4-19 [facility] Sodium levelOrdered By: Fabián Kirkland on 02-26-2025 Sodium [Moles/Vol] 137 mmol/L 133-145 [facility] Squamous epithelial cells de tection in urine sediment by light microscopyOrdered By: Fabián Kirkland on 02-26-2025 Epithelial cells.squamous LM Ql (Urine sed) 0 SEEN /hpf 0-5 [facility] TSH DL <= 0.005 mIU/L QnOrde red By: Fabián Kirkland on 02-26-2025 TSH Qn 1.580 uIU/mL 0.300-4.200 [facility] Thyroid Stim Hormone (TSH)on 02-26-2025 TSH 1.580 uIU/mL Normal 0.300-4.200 [facility] Comment on above: Order Comment: Order Date: 02/26/25 Order Info: [id number] - CMP Order Info: [id number] - LIPID Order Info: [id number] - MG Order Info: [id number] - TSH Performed By: #### L 501.9520 #### [facility] Laboratory [address] [place], [place], [id number] Total proteinOrdered By: Delta Kirkland on 02-26-2025 Protein [Mass/Vol] 7.0 g/dL 5.9-8.4 [facility] Triglycerides measurementOrd ered By: Fabián Kirkland on 02-26-2025 Triglyceride [Mass/Vol] 107 mg/dL <199 [facility] Comment on above: The drugs N-Acetylcy steine and Metamizole may falsely depress this assay. Normal range: <150 mg/dLBorderline High: 150-199 mg/dLHigh: 200-499 mg/dLVery High: >500 mg/dL Urinalysis, Completeon 02-26 BACTERIA 0 SEEN Normal None Seen [facility] Comment on above: Order Comment: Order Date: 06/11/25 Order Info: [id number] - CBCD Performed By: #### L 500.4100, L501.5200, L500.4050, L100.0100, L501.9985 #### [facility] Laboratory [address] [place], [place], [address] EPI,SQUAMOUS 0 SEEN Normal 0-5 [facility] Comment on above: Order Comment: Order Date: 06/11/25 Order Info: [id number] - CBCD Performed By: #### L 500.4100, L501.5200, L500.4050, L100.0100, L501.9985 #### [facility] Laboratory [address] [place], [address] Mucus Ql (Urine sed) 0 SEEN Normal [facility] Comment on above: Order Comment: Order Date: 06/11/25 Order Info: [id number] - CBCD Performed By: #### L 500.4100, L501.5200, L500.4050, L100.0100, L501.9985 #### [facility] Laboratory [address] [place], [address] RBC 0 SEEN Normal 0-5 [facility] Comment on above: Order Comment: Order Date: 06/11/25 Order Info: 0184-1 - CBCD Performed By: #### L 500.4100, L501.5200, L500.4050, L100.0100, L501.9985 #### [facility] Laboratory [address] [place], [address] WBC 0 SEEN Normal 0-[address] [place] [address] Comment on above: Order Comment: Order Date: 06/11/25 Order Info: 0184-1 - CBCD Performed By: #### L 500.4100, L501.5200, L500.4050, L100.0100, L501.9985 #### [facility] [address] [place], [address] Urine clarityOrdered By: Delta Kirkland on 02-26-2025 Clarity (U) Clear Clear [facility] Urine color determinationOrd ered By: Fabián Kirkland on 02-26-2025 Color (U) Straw Yellow [facility] Urine glucose detectionOrder ed By: Fabián Kirkland on 02-26-2025 Glucose Ql (U) Normal mg/dl Normal [facility] Urine leukocyte esterase det ection by dipstickOrdered By: Fabián Kirkland on 02-26-2025 Leukocyte esterase Test strip Ql (U) Negative Negative [facility] Urine pHOrdered By: Fabián chung on 02-26-2025 pH (U) 7.0 [pH] 5.0 - 8.0 [facility] Urine sediment bacteria coun t by microscopy (number/high power field)Ordered By: Fabián Kirkland on 02-26-2025 Bacteria LM.HPF (Urine sed) [#/Area] 0 /[HPF] None Seen [facility] Urine specific gravity measu rementOrdered By: Fabián Kirkland on 02-26-2025 Specific gravity (U) [Rel density] 1.010 1.002-1.030 [facility] Urine urobilinogen measureme ntOrdered By: Fabián Kirkland on 02-26-2025 Urobilinogen Ql (U) Normal mg/dl Normal [facility] Vitamin D,25 Hydroxyon 02-26 Vitamin D 25-OH 43.1 ng/mL Normal 30-100 [facility] Comment on above: Order Comment: Order Date: 02/26/25 Order Info: [id number] - CMP Order Info: [id number] - LIPID Order Info: [id number] - MG Order Info: 3016-3 - TSH Result Comment: Nica min D Status Deficiency: <20 ng/mL (50nmol/L) Insufficiency: 20-30 ng/mL (50-75 nmol/L) Sufficiency: 30-100 ng/mL (75-250 nmol/L) Toxicity: >100 ng/mL (>250 nmol/L) Performed By: #### L 400.0001, L506.1001 #### [facility] [address] [place], [address] White blood cell (WBC) count Ordered By: Fabián Kirkland on 02-26-2025 WBC (Bld) [#/Vol] 5.7 10*3/uL 4.4-11.0 [facility] White blood cell countOrdere d By: Fabián Kirkland on 02-26-2025 White blood cell count 0 SEEN /hpf 0-5 [facility] Cardiology Visit Reporton Cardiology Visit Report [facility] [address] [place] [address] OFFICE VISIT Date of Service: 11/08/24 MR#: [id number] Acct: [id number] Name: SILVERIO GROVER Rep #: [id number] : 1940 Provider: Dr. Orlando Mora MD Age/Sex: 84/M Location: [facility] Status: Signed HPI HPI History of Present Illness Details: 84-year-old man who established with us for evaluation of his aortic root. His only significant history is hypertension. He said that he was going in for a knee replacement and had an EKG done which was thought to be mildly abnormal and he also had an echocardiogram performed which demonstrated an ejection fraction of 55%, stage I diastolic dysfunction, mild aortic stenosis with a mean gradient of 13 mmHg and mild aortic regurgitation. He subsequently had a CT scan of his aortic root at that time which measured 4.2 cm. Further CTA done in August 2022 also demonstrated mild increase in size to 4.5 cm. His blood pressure has been very well controlled. He has blood pressure recordings at home which corroborate the above. He denies chest, arm, jaw, or neck discomfort. He denies palpitations. He denies bilateral lower extremity edema. He denies claudication. He denies shortness of breath with activity, shortness of breath at rest, orthopnea, or PND. He denies chronic cough. He denies significant, sudden weight gain. He denies lightheadedness, dizziness, near-syncope, or syncope. He denies blood in urine, blood in stool, or epistaxis. He denies fever with chills. He denies myalgia. He denies fatigue. His exercise level has remained stable. Intake Vital Signs 09/06/23 10:21 02/15/24 08:03 11/08/24 13:05 Height 5 ft 9 in 5 ft 9 in 5 ft 9 in Weight: 219 lb BMI 32.3 BP 157/84 H Blood Pressure Location Lt brachial Position Sitting Respiration 16 Pulse Source Monitor Intake Visit Reasons: 1 Y FU Tax Intern Required: No Accompanied by: Self Is patient in pain?: No Allergies lisinopril Adverse Reaction (Intermediate, Verified 11/08/24 13:09) Vomiting Medications ???Medication ???Instructions ???Recorded ???Confirmed ???Type cholecalciferol (vitamin D3) 50 50 mcg PO DAILY 11/03/22 11/08/24 History mcg (2,000 unit) tablet Super beta prostate PO HS 06/15/23 11/08/24 History kcdegdlm-zw-mttge 300 mcg-K 60 1 tab PO DAILY 09/06/23 11/08/24 H istory mcg-lycop 600 mcg-lutein 300 mcg tablet (Centrum Silver Men) amlodipine 10 mg tablet 10 mg PO DAILY #90 tabs 10/24/23 0 11/08/24 Rx triamcinolone acetonide 55 mcg 1 spray intranasal DAILY #16.9 mL 10/27/23 02/15/24 Rx nasal spray aerosol (Nasacort) glucosamine sulfate 500 mg tablet 500 mg PO QDAY 11/08/24 11/08/24 History meloxicam 15 mg tablet 15 mg PO QDAY PRN 11/08/24 5 History omega-3 fatty acids 1,000 mg 1,000 mg PO QDAY 11/08/24 11/08/24 History capsule Have you fallen in the past year?: No PFSH Medical History Strain of left wrist Lumbar strain Lumbar pain COVID-19 Hernia, inguinal, bilateral Essential hypertension Surgical History S/P cataract extraction History of total right knee replacement ( 2021) History of inguinal hernia repair S/P appendectomy Family History Mother Hypertension Father Cancer Brother Cancer Sister Hypertension Social History Smoking Status: Former smoker quit date: 10/10/00 Tobacco: How many years used: 40 alcohol intake: current alcohol intake frequency: 0-2 drinks per day Alcohol type: beer substance use type: does not use caffeine: Yes Type: coffee Number of servings: 1 ROS Const Const: Negative for fatigue, weakness, headache(s), daytime sleepiness or difficulty sleeping ENT ENT: Negative for headache(s), dizziness or Nosebleed/epistaxis Cardio Chest Pain: No Palpitations: No Edema: None Resp Respiratory: Negative for SOB with activity, SOB at rest, SOB orthopnea SOB lying down or Cough GI GI: Negative nausea, vomiting or heartburn Neuro Neuro: Negative for dizziness, lightheadedness, near syncope, headache(s) or weakness Endo Endo: Negative for fatigue Cardiology Exam Const Appearance: cooperative, healthy appearing, comfortable and no acute distress Nutritional Appearance: well nourished and overweight Orientation: alert, awake and oriented x3 Head Head: normal to inspection Ears: hearing grossly normal bilaterally Nose: external nose normal Face and Sinus: face symmetric Mouth: moist mucous membranes Eyes General: appearance normal, both eyes and all related structures Eyelids: eyelids normal EOM: EOM i (more content not included)... Normal [facility] CBC W/Diff, Automatedon 10-11 Absolute Lymph 2.15 X10 3/uL Normal 0.83-4.51 [facility] Comment on above: Order Comment: Order Date: 06/11/25 Order Info: 0184-1 - CBCD Performed By: #### L 500.4100, L501.5200, L500.4050, L100.0100, L501.9985 #### [facility] Laboratory [address] [place], [address] Absolute Neut 3.6 X10 3/uL Normal 2.0-7.7 [facility] Comment on above: Order Comment: Order Date: 06/11/25 Order Info: 0184-1 - CBCD Performed By: #### L 500.4100, L501.5200, L500.4050, L100.0100, L501.9985 #### [facility] Laboratory [address] [place], [address] Basophils/100 WBC (Bld) 0.5 % Normal 0-1 [facility] Comment on above: Order Comment: Order Date: 06/11/25 Order Info: 0184-1 - CBCD Performed By: #### L 500.4100, L501.5200, L500.4050, L100.0100, L501.9985 #### [facility] Laboratory [address] [place], [address] Eosinophils/100 WBC (Bld) 2.3 % Normal 0-5 [facility] Comment on above: Order Comment: Order Date: 06/11/25 Order Info: 0184-1 - CBCD Performed By: #### L 500.4100, L501.5200, L500.4050, L100.0100, L501.9985 #### [facility] Laboratory [address] [place], [address] Erythrocyte distribution width (RBC) [Ratio] 13.2 % Normal 11.6-14.6 [facility] Comment on above: Order Comment: Order Date: 06/11/25 Order Info: 0184-1 - CBCD Performed By: #### L 500.4100, L501.5200, L500.4050, L100.0100, L501.9985 #### [facility] Laboratory [address] [place], [address] Hematocrit (Bld) [Volume fraction] 44.2 % Normal 40-54 [facility] Comment on above: Order Comment: Order Date: 06/11/25 Order Info: 0184-1 - CBCD Performed By: #### L 500.4100, L501.5200, L500.4050, L100.0100, L501.9985 #### [facility] Laboratory [address] [place], [address] Hemoglobin (Bld) [Mass/Vol] 14.2 g/dL Normal 13.0-16.5 [facility] Comment on above: Order Comment: Order Date: 06/11/25 Order Info: 0184-1 - CBCD Performed By: #### L 500.4100, L501.5200, L500.4050, L100.0100, L501.9985 #### [facility] Laboratory [address] [place], [address] IG% 0.300 Normal 0.0-0.9 [facility] Comment on above: Order Comment: Order Date: 06/11/25 Order Info: 0184-1 - CBCD Result Comment: IG% - Immature Granulocytes (promyelocytes, myelocytes and metamyelocytes) > 1% indicates that a LEFT SHIFT is Present. Performed By: #### L 500.4100, L501.5200, L500.4050, L100.0100, L501.9985 #### [facility] Laboratory [address] [place], [address] Lymphocytes/100 WBC (Bld) 32.5 % Normal 19-41 [facility] Comment on above: Order Comment: Order Date: 06/11/25 Order Info: 0184-1 - CBCD Performed By: #### L 500.4100, L501.5200, L500.4050, L100.0100, L501.9985 #### [facility] Laboratory [address] [place], [address] MCH (RBC) [Entitic mass] 28.7 pg Normal 27.0-32.0 [facility] Comment on above: Order Comment: Order Date: 06/11/25 Order Info: 0184-1 - CBCD Performed By: #### L 500.4100, L501.5200, L500.4050, L100.0100, L501.9985 #### [facility] Laboratory [address] [place], [address] MCHC (RBC) [Mass/Vol] 32.1 g/dL Normal 32-36 [facility] Comment on above: Order Comment: Order Date: 06/11/25 Order Info: 0184-1 - CBCD Performed By: #### L 500.4100, L501.5200, L500.4050, L100.0100, L501.9985 #### [facility] Laboratory [address] [place], [address] MCV (RBC) [Entitic vol] 89.3 fL Normal 80-94 [facility] Comment on above: Order Comment: Order Date: 06/11/25 Order Info: 0184-1 - CBCD Performed By: #### L 500.4100, L501.5200, L500.4050, L100.0100, L501.9985 #### [facility] Laboratory [address] [place], [address] Monocytes/100 WBC (Bld) 9.4 % Normal 0-10 [facility] Comment on above: Order Comment: Order Date: 06/11/25 Order Info: 0184-1 - CBCD Performed By: #### L 500.4100, L501.5200, L500.4050, L100.0100, L501.9985 #### [facility] [address] [place], [address] Neutrophils/100 WBC (Bld) 55.0 % Normal 47-70 [facility] Comment on above: Order Comment: Order Date: 06/11/25 Order Info: 0184-1 - CBCD Performed By: #### L 500.4100, L501.5200, L500.4050, L100.0100, L501.9985 #### [facility] Laboratory [address] [place], [address] Nucleated RBC (Bld) [#/Vol] 0 10*3/uL Normal 0-5 [facility] Comment on above: Order Comment: Order Date: 06/11/25 Order Info: 0184-1 - CBCD Performed By: #### L 500.4100, L501.5200, L500.4050, L100.0100, L501.9985 #### [facility] [address] [place], [address] Platelet mean volume (Bld) [Entitic vol] 10.3 fL Normal 6.2-12.0 [facility] Comment on above: Order Comment: Order Date: 06/11/25 Order Info: 0184-1 - CBCD Performed By: #### L 500.4100, L501.5200, L500.4050, L100.0100, L501.9985 #### [facility] Laboratory [address] [place], [address] Platelets (Bld) [#/Vol] 220 10*3/uL Normal 150-450 [facility] Comment on above: Order Comment: Order Date: 06/11/25 Order Info: 0184-1 - CBCD Performed By: #### L 500.4100, L501.5200, L500.4050, L100.0100, L501.9985 #### [facility] Laboratory [address] [place], [address] RBC (Bld) [#/Vol] 4.95 10*6/uL Normal 4.6-6.2 [facility] Comment on above: Order Comment: Order Date: 06/11/25 Order Info: 0184-1 - CBCD Performed By: #### L 500.4100, L501.5200, L500.4050, L100.0100, L501.9985 #### [facility] Laboratory [address] [place], [address] RDW SD 43.2 fl Normal 35.1-43.9 [facility] Comment on above: Order Comment: Order Date: 06/11/25 Order Info: 0184-1 - CBCD Performed By: #### L 500.4100, L501.5200, L500.4050, L100.0100, L501.9985 #### [facility] [address] [place], [address] WBC (Bld) [#/Vol] 6.6 10*3/uL Normal 4.4-11.0 [facility] Comment on above: Order Comment: Order Date: 06/11/25 Order Info: 0184-1 - CBCD Performed By: #### L 500.4100, L501.5200, L500.4050, L100.0100, L501.9985 #### [facility] [address] [place], [address] Comprehensive Metabolic Prof [facility] 11-02-2024 Albumin [Mass/Vol] 3.9 g/dL Normal 3.2-5.0 [facility] Comment on above: Order Comment: Order Date: 06/11/25 Order Info: 0184-1 - CBCD Performed By: #### L 500.4100, L501.5200, L500.4050, L100.0100, L501.9985 #### [facility] [address] [place], [address] Albumin/Globulin [Mass ratio] 1.1 {ratio} Normal 0.9-2.4 [facility] Comment on above: Order Comment: Order Date: 06/11/25 Order Info: 0184-1 - CBCD Performed By: #### L 500.4100, L501.5200, L500.4050, L100.0100, L501.9985 #### [facility] [address] [place], [address] ALK P 111 U/L Normal 45-117 [facility] Comment on above: Order Comment: Order Date: 06/11/25 Order Info: 0184- - CBCD Performed By: #### L 500.4100, L501.5200, L500.4050, L100.0100, L501.9985 #### [facility] [address] [place], [address] ALT [Catalytic activity/Vol] 41 U/L Normal 16-61 [facility] Comment on above: Order Comment: Order Date: 06/11/25 Order Info: 0184-1 - CBCD Performed By: #### L 500.4100, L501.5200, L500.4050, L100.0100, L501.9985 #### [facility] [address] [place], [address] AST [Catalytic activity/Vol] 36 U/L Normal 15-37 [facility] Comment on above: Order Comment: Order Date: 06/11/25 Order Info: 0184-1 - CBCD Performed By: #### L 500.4100, L501.5200, L500.4050, L100.0100, L501.9985 #### [facility] Laboratory [address] [place], [address] Bilirubin [Mass/Vol] 0.70 mg/dL Normal 0.20-1.00 [facility] Comment on above: Order Comment: Order Date: 06/11/25 Order Info: 0184-1 - CBCD Result Comment: For patients on eltrombopag therapy, use of Dimension [place] TBIL is not recommended. Performed By: #### L 500.4100, L501.5200, L500.4050, L100.0100, L501.9985 #### [facility] [address] [place], [address] BUN/CRE 20.6 RATIO High 10-20 [facility] Comment on above: Order Comment: Order Date: 06/11/25 Order Info: 0184- - CBCD Performed By: #### L 500.4100, L501.5200, L500.4050, L100.0100, L501.9985 #### [facility] [address] [place], [address] CA,Total 9.0 mg/dL Normal 8.5-10.1 [facility] Comment on above: Order Comment: Order Date: 06/11/25 Order Info: 0184-1 - CBCD Performed By: #### L 500.4100, L501.5200, L500.4050, L100.0100, L501.9985 #### [facility] [address] [place], [address] Chloride [Moles/Vol] 106 mmol/L Normal 98-107 [facility] Comment on above: Order Comment: Order Date: 06/11/25 Order Info: 0184-1 - CBCD Performed By: #### L 500.4100, L501.5200, L500.4050, L100.0100, L501.9985 #### [facility] [address] [place], [address] CO2 [Moles/Vol] 23.0 mmol/L Normal 21.0-32.0 [facility] Comment on above: Order Comment: Order Date: 06/11/25 Order Info: 0184-1 - CBCD Performed By: #### L 500.4100, L501.5200, L500.4050, L100.0100, L501.9985 #### [facility] [address] [place], [address] Creatinine [Mass/Vol] 0.97 mg/dL Normal 0.70-1.30 [facility] Comment on above: Order Comment: Order Date: 06/11/25 Order Info: 0184- - CBCD Result Comment: The validity of the calculated GFR GFRAA in patients over 70 years has not been determined. Clinical correlation is essential. Performed By: #### L 500.4100, L501.5200, L500.4050, L100.0100, L501.9985 #### [facility] [address] [place], [address] EST GFR - AA 94 mL/min Normal >60 [facility] Comment on above: Order Comment: Order Date: 06/11/25 Order Info: 0184-1 - CBCD Result Comment: Afri can [place] GFR Calc Performed By: #### L 500.4100, L501.5200, L500.4050, L100.0100, L501.9985 #### [facility] [address] [place], [address] GAP 8 Normal 5-15 [facility] Comment on above: Order Comment: Order Date: 06/11/25 Order Info: 0184-1 - CBCD Performed By: #### L 500.4100, L501.5200, L500.4050, L100.0100, L501.9985 #### [facility] [address] [place], [address] GFR/1.73 sq M.predicted among non-blacks MDRD (S/P/Bld) [Vol rate/Area] 78 mL/min/{1.73_m2} Normal >60 [facility] Comment on above: Order Comment: Order Date: 06/11/25 Order Info: 0184-1 - CBCD Result Comment: Non- GFR Calc Performed By: #### L 500.4100, L501.5200, L500.4050, L100.0100, L501.9985 #### [facility] [address] [place], [address] Globulin (S) [Mass/Vol] 3.4 g/dL Normal 2.2-4.2 [facility] Comment on above: Order Comment: Order Date: 06/11/25 Order Info: 0184-1 - CBCD Performed By: #### L 500.4100, L501.5200, L500.4050, L100.0100, L501.9985 #### [facility] [address] [place], [address] Glucose [Mass/Vol] 111 mg/dL High 74-106 [facility] Comment on above: Order Comment: Order Date: 06/11/25 Order Info: 0184-1 - CBCD Result Comment: Fast ing Glucose result from 100 to 125 mg/dL suggests IMPAIRED HOMEOSTASIS per A.D.A. criteria. Performed By: #### L 500.4100, L501.5200, L500.4050, L100.0100, L501.9985 #### [facility] [address] [place], [address] Potassium [Moles/Vol] 3.8 mmol/L Normal 3.5-5.1 [facility] Comment on above: Order Comment: Order Date: 06/11/25 Order Info: 0184-1 - CBCD Performed By: #### L 500.4100, L501.5200, L500.4050, L100.0100, L501.9985 #### [facility] [address] [place], [address] Sodium [Moles/Vol] 137 mmol/L Normal 136-145 [facility] Comment on above: Order Comment: Order Date: 06/11/25 Order Info: 0184-1 - CBCD Performed By: #### L 500.4100, L501.5200, L500.4050, L100.0100, L501.9985 #### [facility] [address] [place], [address] T PROT 7.3 g/dL Normal 6.4-8.2 [facility] Comment on above: Order Comment: Order Date: 06/11/25 Order Info: 0184-1 - CBCD Performed By: #### L 500.4100, L501.5200, L500.4050, L100.0100, L501.9985 #### [facility] [address] [place], [address] Urea nitrogen [Mass/Vol] 20 mg/dL High 7-18 [facility] Comment on above: Order Comment: Order Date: 06/11/25 Order Info: 0184-1 - CBCD Performed By: #### L 500.4100, L501.5200, L500.4050, L100.0100, L501.9985 #### [facility] [address] [place], [address] Hemoglobin A1con 11-02-2024 HbA1c (Bld) [Mass fraction] 5.7 % High 3.8-5.6 [facility] Comment on above: Order Comment: Order Date: 06/11/25 Order Info: 4548-4 - A1C Result Comment: Norm al < 5.7 % Prediabetic 5.7 - 6.4 % Diabetic >or= 6.5 % Please note range changes. Performed By: #### L 500.4100, L501.5200, L500.4050, L100.0100, [id number] #### [facility] [address] [place], [address] Lipid Profileon 11-02-2024 Cholesterol [Mass/Vol] 179 mg/dL Normal 200 [facility] Comment on above: Order Comment: Order Date: 06/11/25 Order Info: [id number] - CBCD Result Comment: <200 mg/dL Desirable 200-240 mg/dL Borderline >240 mg/dL High Risk Performed By: #### L 500.4100, L501.5200, L500.4050, L100.0100, [id number] #### [facility] [address] [place], [address] Cholesterol in HDL [Mass/Vol] 72 mg/dL Normal [facility] Comment on above: Order Comment: Order Date: 06/11/25 Order Info: [id number] - CBCD Result Comment: The drugs N-Acetylcysteine and Metamizole may falsely depress this assay. Reference Range HDL <40 mg/dL Low HDL Cholesterol HDL >or= 60 mg/dL High HDL Cholesterol Performed By: #### L 500.4100, L501.5200, L500.4050, L100.0100, L501.9985 #### [facility] [address] [place], [address] Cholesterol in LDL [Mass/Vol] 85 mg/dL Normal 0-130 [facility] Comment on above: Order Comment: Order Date: 06/11/25 Order Info: [id number] - CBCD Performed By: #### L 500.4100, L501.5200, L500.4050, L100.0100, [id number] #### [facility] [address] [place], [address] Cholesterol in VLDL [Mass/Vol] 22 mg/dL Normal 5-40 [facility] Comment on above: Order Comment: Order Date: 06/11/25 Order Info: [id number] - CBCD Performed By: #### L 500.4100, L501.5200, L500.4050, L100.0100, L501.9985 #### [facility] [address] [place], [address] Triglyceride [Mass/Vol] 109 mg/dL Normal [facility] Comment on above: Order Comment: Order Date: 06/11/25 Order Info: [id number] - CBCD Result Comment: The drugs N-Acetylcysteine and Metamizole may falsely depress this assay. Serum Triglycerides Reference Interval Normal <150 mg/dL Borderline high 150 - 199 mg/dL High 200 - 499 mg/dL Very High > or = 500 mg/dL Performed By: #### L 500.4100, L501.5200, L500.4050, L100.0100, L501.9985 #### [facility] [address] [place], [address] Magnesiumon 11-02-2024 Magnesium [Mass/Vol] 2.3 mg/dL Normal 1.6-2.6 [facility] Comment on above: Order Comment: Order Date: 06/11/25 Order Info: [id number] - CBCD Performed By: #### L 500.4100, L501.5200, L500.4050, L100.0100, [id number] #### [facility] [address] [place], [address] Thyroid Stim Hormone (TSH)on 11-02-2024 TSH 1.760 uIU/mL Normal 0.358-3.740 [facility] Comment on above: Order Comment: Order Date: 06/11/25 Order Info: [id number] - A1C Performed By: #### L 500.4100, L501.5200, L500.4050, L100.0100, [id number] #### [facility] [address] [place], [address] Urinalysis, Completeon 11-02 BACTERIA 0 SEEN Normal None Seen [facility] Comment on above: Order Comment: Order Date: 06/11/25 Order Info: [id number] - CBCD Performed By: #### L 500.4100, L501.5200, L500.4050, L100.0100, [id number] #### [facility] [address] [place], [address] EPI,SQUAMOUS 0 SEEN Normal 0-5 [facility] Comment on above: Order Comment: Order Date: 06/11/25 Order Info: [id number]- - CBCD Performed By: #### L 500.4100, L501.5200, L500.4050, L100.0100, [id number] #### [facility] [address] [place], [address] Mucus Ql (Urine sed) 0 SEEN Normal [facility] Comment on above: Order Comment: Order Date: 06/11/25 Order Info: [id number]- - CBCD Performed By: #### L 500.4100, L501.5200, L500.4050, L100.0100, [id number] #### [facility] [address] [place], [address] RBC 0 SEEN Normal [address] [place] [address] Comment on above: Order Comment: Order Date: 06/11/25 Order Info: [id number]- - CBCD Performed By: #### L 500.4100, L501.5200, L500.4050, L100.0100, [id number] #### [facility] [address] [place], [address] WBC 0 SEEN Normal [address] [place] [address] Comment on above: Order Comment: Order Date: 06/11/25 Order Info: [id number]- - CBCD Performed By: #### L 500.4100, L501.5200, L500.4050, L100.0100, [id number] #### [facility] [address] [place], [address] Vitamin D,25 Hydroxyon 11-02 Vitamin D 25-OH 53.4 ng/mL Normal [facility] Comment on above: Order Comment: Order Date: 06/11/25 Order Info: [id number] - CBCD Result Comment: Nica min D 25(OH) Status Range Deficiency <20 ng/mL (50nmol/L) Insufficiency 20 - 30 ng/mL (50 - 75 nmol/L) Sufficiency 30 - 100 ng/mL (75 - 250 nmol/L) Toxicity >100 ng/mL (>250 nmol/L) Performed By: #### L 500.4100, L501.5200, L500.4050, L100.0100, L501.9985 #### [facility] [address] [place], [place], [id number] Absolute lymphocyte countOrd ered By: Fabián Kirkland on 11-22-2023 Lymphocytes Auto (Unsp spec) [#/Vol] 1.69 10*3/uL 0.83-4.51 [facility] Automated lymphocyte count a s percentage of total leukocytesOrdered By: Fabián Kirkland on 11-22-2023 Lymphocytes/100 WBC Auto (Unsp spec) 28.5 % 19-41 [facility] Basophil percentageOrdered B y: Fabián Kirkland on 11-22-2023 Basophil percentage 0 SEEN /hpf 0-5 [facility] Basophils/100 WBC (Bld) 0.8 % 0-1 [facility] Bilirubin [Mass/Vol] 0.60 mg/dL 0.20-1.00 [facility] Comment on above: For patients on eltr ombopag therapy, use of Dimension [place] TBIL is not recommended. Chloride [Moles/Vol] 106 mmol/L 98-107 [facility] Cholesterol [Mass/Vol] 186 mg/dL <200 [facility] Comment on above: <200 mg/dL Desirable 200-240 mg/dL Borderline >240 mg/dL High Risk Eosinophils/100 WBC (Bld) 2.2 % 0-5 [facility] Glucose [Mass/Vol] 114 mg/dL 74-106 [facility] Comment on above: Fasting Glucose resu lt from 100 to 125 mg/dL suggests IMPAIRED HOMEOSTASIS per A.D.A. criteria. Hemoglobin (Bld) [Mass/Vol] 14.7 g/dL 13.0-16.5 [facility] Monocytes/100 WBC (Bld) 6.4 % 0-10 [facility] Neutrophils (Bld) [#/Vol] 3.7 10*3/uL 2.0-7.7 [facility] Neutrophils/100 WBC (Bld) 61.9 % 47-70 [facility] Potassium [Moles/Vol] 3.8 mmol/L 3.5-5.1 [facility] Protein [Mass/Vol] 7.4 g/dL 6.4-8.2 [facility] Sodium [Moles/Vol] 137 mmol/L 136-145 [facility] Triglyceride [Mass/Vol] 137 mg/dL <199 [facility] Comment on above: The drugs N-Acetylcy steine and Metamizole may falsely depress this assay.Serum Triglycerides Reference Interval Normal <150 mg/dL Borderline high 150 - 199 mg/dL High 200 - 499 mg/dL Very High > or = 500 mg/dL WBC (Bld) [#/Vol] 5.9 10*3/uL 4.4-11.0 [facility] Bilirubin Test strip Ql (U)O rdered By: Fabián Kirkland on 11-22-2023 Bilirubin Ql (U) Negative Negative [facility] Determination of erythrocyte mean corpuscular volume (MCV)Ordered By: Fabián Kirkland on 11-22-2023 MCV (RBC) [Entitic vol] 89.1 fL 80-94 [facility] Erythrocyte distribution wid th ratioOrdered By: Fabián Kirkland on 11-22-2023 Erythrocyte distribution width (RBC) [Ratio] 13.9 % 11.6-14.6 [facility] Erythrocyte distribution wid th standard deviationOrdered By: Fabián Kirkland on 11-22-2023 Erythrocyte distribution width (RBC) [Entitic vol] 45.1 fL 35.1-43.9 [facility] Hematocrit Auto (Bld) [Volum e fraction]Ordered By: Fabián Kirkland on 11-22-2023 Hematocrit (Bld) [Volume fraction] 44.9 % 40-54 [facility] Immature granulocytes/100 WB C Auto (Bld)Ordered By: Fabián Kirkland on 11-22-2023 Immature granulocytes/100 WBC (Bld) 0.200 % 0.0-0.9 [facility] Comment on above: IG% - Immature Granu locytes (promyelocytes, myelocytes and metamyelocytes) > 1% indicates that a LEFT SHIFT is Present. Ketones Test strip Ql (U)Ord ered By: Fabián Kirkland on 11-22-2023 Ketones Ql (U) Negative Negative [facility] - Chemistry and C hemistry - challengeOrdered By: Fabián Kirkland on 11-22-2023 Albumin/Globulin [Mass ratio] 1.2 {ratio} 0.9-2.4 [facility] ALP [Catalytic activity/Vol] 121 U/L 45-117 [facility] ALT [Catalytic activity/Vol] 37 U/L 16-61 [facility] Cholesterol in HDL [Mass/Vol] 79 mg/dL >40 [facility] Comment on above: The drugs N-Acetylcy steine and Metamizole may falsely depress this assay. Reference Range HDL <40 mg/dL Low HDL Cholesterol HDL >or= 60 mg/dL High HDL Cholesterol Cholesterol in LDL [Mass/Vol] 80 mg/dL 0-130 [facility] CO2 [Moles/Vol] 24.0 mmol/L 21.0-32.0 [facility] Globulin (S) [Mass/Vol] 3.3 g/dL 2.2-4.2 [facility] Magnesium [Mass/Vol] 2.4 mg/dL 1.6-2.6 [facility] Urea nitrogen/Creatinine [Mass ratio] 20.9 mg/mg 10-20 [facility] - Hematology and Cell countsOrdered By: Fabián Kirkland on 11-22-2023 MCH (RBC) [Entitic mass] 29.2 pg 27.0-32.0 [facility] MCHC (RBC) [Mass/Vol] 32.7 g/dL 32-36 [facility] Nucleated RBC/100 WBC (Bld) [Ratio] 0 % 0-5 [facility] Platelet mean volume (Bld) [Entitic vol] 10.3 fL 6.2-12.0 [facility] Platelets (Bld) [#/Vol] 230 10*3/uL 150-450 [facility] Mucus LM Ql (Urine sed)Order ed By: Fabián Kirkland on 11-22-2023 Mucus Ql (Urine sed) 0 SEEN /hpf [facility] Nitrite Test strip Ql (U)Ord ered By: Fabián Kirkland on 11-22-2023 Nitrite Ql (U) Negative Negative [facility] No Panel InformationOrdered By: Fabián Kirkland on 11-22-2023 Urine RBC 0 SEEN /hpf 0-5 [facility] Estimated GFR (MDRD) Amer 116 mL/min >60 [facility] Comment on above: GFR Calc Estimated GFR (MDRD) Non-Af Amer 96 mL/min >60 [facility] Comment on above: Non- GFR Calc Vitamin D 25-Hydroxy 41.5 ng/mL [facility] Comment on above: Vitamin D 25([place]) Sta tus Range Deficiency <20 ng/mL (50nmol/L) Insufficiency 20 - 30 ng/mL (50 - 75 nmol/L) Sufficiency 30 - 100 ng/mL (75 - 250 nmol/L) Toxicity >100 ng/mL (>250 nmol/L) VLDL Cholesterol 27 mg/dL 5-40 [facility] Protein Test strip Ql (U)Ord ered By: Fabián Kirkland on 11-22-2023 Protein Ql (U) Negative Negative [facility] RBC Auto (Bld) [#/Vol]Ordere d By: Fabián Kirkland on 11-22-2023 RBC (Bld) [#/Vol] 5.04 10*6/uL 4.6-6.2 [facility] Serum or plasma calcium michael urement (mass/volume)Ordered By: Fabián Kirkland on 11-22-2023 Calcium [Mass/Vol] 9.1 mg/dL 8.5-10.1 [facility] Serum or plasma creatinine m easurement (mass/volume)Ordered By: Fabián Kirkland on 11-22-2023 Creatinine [Mass/Vol] 0.81 mg/dL 0.70-1.30 [facility] Comment on above: The validity of the calculated GFR & GFRAA in patients over 70 years has not been determined. Clinical correlation is essential. Serum or plasma thyroid stim ulating hormone (TSH) measurement (units/volume)Ordered By: Fabián Kirkland on 11-22-2023 TSH Qn 1.36 uIU/mL 0.358-3.74 [facility] Serum or plasma urea nitroge n measurement (mass/volume)Ordered By: Fabián Kirkland on 11-22-2023 Urea nitrogen [Mass/Vol] 17 mg/dL 7-18 [facility] Squamous epithelial cells de tection in urine sediment by light microscopyOrdered By: Fabián Kirkland on 11-22-2023 Epithelial cells.squamous LM Ql (Urine sed) 0 SEEN /hpf 0-5 [facility] Thin prep Papanicolaou smear with manual screeningOrdered By: Fabián Kirkland on 11-22-2023 Thin prep Papanicolaou smear with manual screening 4.1 g/dL 3.2-5.0 [facility] Thin prep Papanicolaou smear with manual screening 34 U/L 15-37 [facility] Thin prep Papanicolaou smear with manual screening 7 5-15 [facility] Urine blood detectionOrdered By: Fabián Kirkland on 11-22-2023 RBC Ql (U) Negative Negative [facility] Urine clarityOrdered By: Delta Kirkland on 11-22-2023 Clarity (U) Clear Clear [facility] Urine color determinationOrd ered By: Fabián Kirkland on 11-22-2023 Color (U) Yellow Yellow [facility] Urine glucose detectionOrder ed By: Fabián Kirkland on 11-22-2023 Glucose Ql (U) Normal mg/dl Normal [facility] Urine leukocyte esterase det ection by dipstickOrdered By: Fabián Kirkland on 11-22-2023 Leukocyte esterase Test strip Ql (U) Negative Negative [facility] Urine pHOrdered By: Fabián chung on 11-22-2023 pH (U) 7.0 [pH] 5.0 - 8.0 [facility] Urine sediment bacteria coun t by microscopy (number/high power field)Ordered By: Fabián Kirkland on 11-22-2023 Bacteria LM.HPF (Urine sed) [#/Area] 0 /[HPF] None Seen [facility] Urine specific gravity measu rementOrdered By: Fabián Kirkland on 11-22-2023 Specific gravity (U) [Rel density] 1.010 1.002-1.030 [facility] Urine urobilinogen measureme ntOrdered By: Fabián Kirkland on 11-22-2023 Urobilinogen Ql (U) Normal mg/dl Normal [facility] Whole blood hemoglobin A1c/t otal hemoglobin ratio (mass fraction)Ordered By: Fabián Kirkland on 11-22-2023 HbA1c (Bld) [Mass fraction] 5.8 % 3.8-5.6 [facility] Comment on above: Normal < 5.7 % Predi abetic 5.7 - 6.4 % Diabetic >or= 6.5 % Please note range changes. No Panel Informationon 10-27 POC SARS CoV-2 Antigen Negative [facility] Absolute lymphocyte countOrd ered By: Chanel Pedro on 12-02-2022 Lymphocytes Auto (Unsp spec) [#/Vol] 2.07 10*3/uL 0.83-4.51 [facility] Basophil percentageOrdered B y: Chanel Pedro on 12-02-2022 Basophils/100 WBC (Bld) 0.5 % 0-1 [facility] Chloride [Moles/Vol] 103 mmol/L 98-107 [facility] Eosinophils/100 WBC (Bld) 3.1 % 0-5 [facility] Glucose [Mass/Vol] 109 mg/dL 74-106 [facility] Comment on above: Fasting Glucose resu lt from 100 to 125 mg/dL suggests IMPAIRED HOMEOSTASIS per A.D.A. criteria. Neutrophils (Bld) [#/Vol] 3.0 10*3/uL 2.0-7.7 [facility] Neutrophils/100 WBC (Bld) 51.5 % 47-70 [facility] Potassium [Moles/Vol] 3.9 mmol/L 3.5-5.1 [facility] Sodium [Moles/Vol] 137 mmol/L 136-145 [facility] WBC (Bld) [#/Vol] 5.8 10*3/uL 4.4-11.0 [facility] Blood erythrocytes count (nu mber/volume)Ordered By: Chanel Pedro on 12-02-2022 RBC (Bld) [#/Vol] 4.73 10*6/uL 4.6-6.2 [facility] Blood hemoglobin measurement (mass/volume)Ordered By: Chanel Pedro on 12-02-2022 Hemoglobin (Bld) [Mass/Vol] 13.7 g/dL 13.0-16.5 [facility] Blood lymphocytes/100 leukoc ytesOrdered By: Chanel Pedro on 12-02-2022 Lymphocytes/100 WBC (Bld) 35.8 % 19-41 [facility] Blood monocytes/100 leukocyt esOrdered By: Chanel Pedro on 12-02-2022 Monocytes/100 WBC (Bld) 8.8 % 0-10 [facility] Blood platelet mean volumeOr dered By: Chanel Pedro on 12-02-2022 Platelet mean volume (Bld) [Entitic vol] 10.2 fL 6.2-12.0 [facility] Determination of erythrocyte mean corpuscular volume (MCV)Ordered By: Chanel Pedro on 12-02-2022 MCV (RBC) [Entitic vol] 90.1 fL 80-94 [facility] Hematocrit Auto (Bld) [Volum e fraction]Ordered By: [facility] Mayela on 12-02-2022 Hematocrit (Bld) [Volume fraction] 42.6 % 40-54 [facility] - Chemistry and C hemistry - challengeOrdered By: Chanelnidia Pedro on 12-02-2022 CO2 [Moles/Vol] 28.0 mmol/L 21.0-32.0 [facility] Urea nitrogen/Creatinine [Mass ratio] 20.0 mg/mg 10-20 [facility] - Hematology and Cell countsOrdered By: Chanel Pedro on 12-02-2022 Erythrocyte distribution width (RBC) [Entitic vol] 43.0 fL 35.1-43.9 [facility] Erythrocyte distribution width (RBC) [Ratio] 13.1 % 11.6-14.6 [facility] Immature granulocytes/100 WBC (Bld) 0.300 % 0.0-0.9 [facility] Comment on above: IG% - Immature Granu locytes (promyelocytes, myelocytes and metamyelocytes) > 1% indicates that a LEFT SHIFT is Present. MCH (RBC) [Entitic mass] 29.0 pg 27.0-32.0 [facility] Nucleated RBC/100 WBC (Bld) [Ratio] 0 % 0-5 [facility] MCHC Auto (RBC) [Mass/Vol]Or dered By: Chanel Pedro on 12-02-2022 MCHC (RBC) [Mass/Vol] 32.2 g/dL 32-36 [facility] No Panel InformationOrdered By: Chanel Pedro on 12-02-2022 Estimated GFR (MDRD) Amer 92 mL/min >60 [facility] Comment on above: GFR Calc Estimated GFR (MDRD) Non-Af Amer 76 mL/min >60 [facility] Comment on above: Non- GFR Calc Platelets bldOrdered By: Marli Pedro on 12-02-2022 Platelets (Bld) [#/Vol] 197 10*3/uL 150-450 [facility] Serum or plasma calcium michael urement (mass/volume)Ordered By: Chanel Pedro on 12-02-2022 Calcium [Mass/Vol] 8.9 mg/dL 8.5-10.1 [facility] Serum or plasma creatinine m easurement (mass/volume)Ordered By: Chanel Pedro on 12-02-2022 Creatinine [Mass/Vol] 1.00 mg/dL 0.70-1.30 [facility] Comment on above: The validity of the calculated GFR & GFRAA in patients over 70 years has not been determined. Clinical correlation is essential. Serum or plasma urea nitroge n measurement (mass/volume)Ordered By: Chanel Pedro on 12-02-2022 Urea nitrogen [Mass/Vol] 20 mg/dL 7-18 [facility] Thin prep Papanicolaou smear with manual screeningOrdered By: Chanel Pedro on 12-02-2022 Thin prep Papanicolaou smear with manual screening 6 5-15 [facility] Whole blood hemoglobin A1c/t otal hemoglobin ratio (mass fraction)Ordered By: Chanel Pedro on 12-02-2022 HbA1c (Bld) [Mass fraction] 5.5 % 3.8-5.6 [facility] Comment on above: Normal < 5.7 % Predi abetic 5.7 - 6.4 % Diabetic >or= 6.5 % Please note range changes. Basophil percentageOrdered B y: Dr. Lawton on 09-16-2022 Basophil percentage 0 SEEN /hpf 0-5 [facility] Bilirubin Test strip Ql (U)O rdered By: Dr. aLwton on 09-16-2022 Bilirubin Ql (U) Negative Negative [facility] Ketones Test strip Ql (U)Ord ered By: Dr. Lawton on 09-16-2022 Ketones Ql (U) Negative Negative [facility] Mucus LM Ql (Urine sed)Order ed By: Dr. Lawton on 09-16-2022 Mucus Ql (Urine sed) 0 SEEN /hpf [facility] Nitrite Test strip Ql (U)Ord ered By: Dr. Lawton on 09-16-2022 Nitrite Ql (U) Negative Negative [facility] Protein Test strip Ql (U)Ord ered By: Dr. Lawton on 09-16-2022 Protein Ql (U) Negative Negative [facility] Squamous epithelial cells de tection in urine sediment by light microscopyOrdered By: Dr. Lawton on 09-16-2022 Epithelial cells.squamous LM Ql (Urine sed) 0-5 SEEN /hpf 0-5 [facility] Urine blood detectionOrdered By: Dr. Lawton on 09-16-2022 RBC Ql (U) Negative Negative [facility] RBC Ql (U) 0 SEEN /hpf 0-5 [facility] Urine clarityOrdered By: Dr. Lawton on 09-16-2022 Clarity (U) Clear Clear [facility] Urine color determinationOrd ered By: Dr. Lawton on 09-16-2022 Color (U) Yellow Yellow [facility] Urine glucose detectionOrder ed By: Dr. Lawton on 09-16-2022 Glucose Ql (U) Normal mg/dl Normal [facility] Urine leukocyte esterase det ection by dipstickOrdered By: Dr. Lawton on 09-16-2022 Leukocyte esterase Test strip Ql (U) Negative Negative [facility] Urine pHOrdered By: Dr. Nito banksr on 09-16-2022 pH (U) 6.0 [pH] 5.0 - 8.0 [facility] Urine sediment bacteria coun t by microscopy (number/high power field)Ordered By: Dr. Lawton on 09-16-2022 Bacteria LM.HPF (Urine sed) [#/Area] 0 /[HPF] None Seen [facility] Urine specific gravity measu rementOrdered By: Dr. Lawton on 09-16-2022 Specific gravity (U) [Rel density] 1.015 1.002-1.030 [facility] Urobilinogen Auto test strip Ql (U)Ordered By: Dr. Lawton on 09-16-2022 Urobilinogen Ql (U) Normal mg/dl Normal [facility] Absolute lymphocyte countOrd ered By: Dr. Lawton on 09-08-2022 Lymphocytes Auto (Unsp spec) [#/Vol] 2.63 10*3/uL 0.83-4.51 [facility] Basophil percentageOrdered B y: Dr. Lawton on 09-08-2022 Basophils/100 WBC (Bld) 0.7 % 0-1 [facility] Bilirubin [Mass/Vol] 0.30 mg/dL 0.20-1.00 [facility] Comment on above: For patients on eltr ombopag therapy, use of Dimension [place] TBIL is not recommended. Chloride [Moles/Vol] 100 mmol/L 98-107 [facility] Eosinophils/100 WBC (Bld) 2.5 % 0-5 [facility] Glucose [Mass/Vol] 104 mg/dL 74-106 [facility] Comment on above: Fasting Glucose resu lt from 100 to 125 mg/dL suggests IMPAIRED HOMEOSTASIS per A.D.A. criteria. Neutrophils (Bld) [#/Vol] 4.5 10*3/uL 2.0-7.7 [facility] Neutrophils/100 WBC (Bld) 54.6 % 47-70 [facility] Potassium [Moles/Vol] 4.1 mmol/L 3.5-5.1 [facility] Protein [Mass/Vol] 7.1 g/dL 6.4-8.2 [facility] Sodium [Moles/Vol] 135 mmol/L 136-145 [facility] WBC (Bld) [#/Vol] 8.3 10*3/uL 4.4-11.0 [facility] Blood erythrocytes count (nu mber/volume)Ordered By: Dr. Lawton on 09-08-2022 RBC (Bld) [#/Vol] 4.85 10*6/uL 4.6-6.2 [facility] Blood hemoglobin measurement (mass/volume)Ordered By: Dr. Lawton on 09-08-2022 Hemoglobin (Bld) [Mass/Vol] 13.8 g/dL 13.0-16.5 [facility] Blood lymphocytes/100 leukoc ytesOrdered By: Dr. Lawton on 09-08-2022 Lymphocytes/100 WBC (Bld) 31.8 % 19-41 [facility] Blood monocytes/100 leukocyt esOrdered By: [address]. Lawton on 09-08-2022 Monocytes/100 WBC (Bld) 9.1 % 0-10 [facility] Blood platelet mean volumeOr dered By: Dr. Lawton on 09-08-2022 Platelet mean volume (Bld) [Entitic vol] 9.7 fL 6.2-12.0 [facility] Determination of erythrocyte mean corpuscular volume (MCV)Ordered By: Dr. Lawton on 09-08-2022 MCV (RBC) [Entitic vol] 90.3 fL 80-94 [facility] Hematocrit Auto (Bld) [Volum e fraction]Ordered By: Dr. Lawton on 09-08-2022 Hematocrit (Bld) [Volume fraction] 43.8 % 40-54 [facility] Laboratory - Chemistry and C hemistry - challengeOrdered By: Dr. Lawton on 09-08-2022 ALP [Catalytic activity/Vol] 139 U/L 45-117 [facility] ALT [Catalytic activity/Vol] 57 U/L 16-61 [facility] CO2 [Moles/Vol] 27.0 mmol/L 21.0-32.0 [facility] Globulin (S) [Mass/Vol] 3.3 g/dL 2.2-4.2 [facility] Urea nitrogen/Creatinine [Mass ratio] 20.9 mg/mg 10-20 [facility] Laboratory - Hematology and Cell countsOrdered By: Dr. Lawton on 09-08-2022 Erythrocyte distribution width (RBC) [Entitic vol] 42.1 fL 35.1-43.9 [facility] Erythrocyte distribution width (RBC) [Ratio] 12.8 % 11.6-14.6 [facility] Immature granulocytes/100 WBC (Bld) 1.300 % 0.0-0.9 [facility] Comment on above: IG% - Immature Granu locytes (promyelocytes, myelocytes and metamyelocytes) > 1% indicates that a LEFT SHIFT is Present. MCH (RBC) [Entitic mass] 28.5 pg 27.0-32.0 [facility] Nucleated RBC/100 WBC (Bld) [Ratio] 0 % 0-5 [facility] MCHC Auto (RBC) [Mass/Vol]Or dered By: Dr. Lawton on 09-08-2022 MCHC (RBC) [Mass/Vol] 31.5 g/dL 32-36 [facility] No Panel InformationOrdered By: Dr. Lawton on 09-08-2022 Estimated GFR (MDRD) Amer 102 mL/min >60 [facility] Comment on above: GFR Calc Estimated GFR (MDRD) Non-Af Amer 85 mL/min >60 [facility] Comment on above: Non- GFR Calc Prostate Specific Antigen Screen 2.10 ng/mL 0.00-4.00 [facility] Comment on above: This test was perfor med using the TPSA assay method [facility] system. Values obtained with differentassay methods cannot be used interchangably.When changing PSA assays in the course of monitoring apatient,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 11-03-2022 14:14-0500 Respiratory rate 18 /min Dr. Edy Lawton Work Phone: [facility] 11-03-2022 14:14-0500 Systolic blood pressure 175 mm[Hg] Dr. Edy Lawton Work Phone: [facility] 09-08-2022 15:15-0500 Body height 175.[address] Edy Lawton Work Phone: [facility] Work Phone: 09-08-2022 15:15-0500 Body mass index (BMI) [Ratio] 30.4 kg/m2 Dr. Edy Lawton Work Phone: [facility] 09-08-2022 15:15-0500 Body temperature 98.1 [degF] Dr. Edy Lawton Work Phone: [facility] 09-08-2022 15:15-0500 Body weight 93.[address] Edy Lawton Work Phone: [facility] 09-08-2022 15:15-0500 Diastolic blood pressure 89 mm[Hg] Dr. Edy Lawton Work Phone: [facility] 09-08-2022 15:15-0500 Heart rate 70 /min Dr. Edy Lawton Work Phone: [facility] 09-08-2022 15:15-0500 Respiratory rate 18 /min Dr. Edy Lawton Work Phone: [facility] 09-08-2022 15:15-0500 SaO2% (BldA) [Mass fraction] 92 % Dr. Edy Lawton Work Phone: [facility] 09-08-2022 15:15-0500 Systolic blood pressure 149 mm[Hg] Dr. Edy Lawton Work Phone: [facility] 09-02-2022 15:00-0500 Diastolic blood pressure 72 mm[Hg] Dr. Edy Lawton Work Phone: [facility] 09-02-2022 15:00-0500 Heart rate 74 /min Dr. Edy Lawton Work Phone: [facility] 09-02-2022 15:00-0500 Respiratory rate 20 /min Dr. Edy Lawton Work Phone: [facility] 09-02-2022 15:00-0500 SaO2% (BldA) [Mass fraction] 95 % Dr. Edy Lawton Work Phone: [facility] 09-02-2022 15:00-0500 Systolic blood pressure 127 mm[Hg] Dr. Edy Lawton Work Phone: [facility] 09-02-2022 11:25-0500 Body temperature 97.9 [degF] Dr. Edy Lawton Work Phone: [facility] 09-02-2022 11:23-0500 Body mass index (BMI) [Ratio] 30.2 kg/m2 Dr. Edy Lawton Work Phone: [facility] 09-02-2022 11:23-0500 Body weight 92.[address] Edy Lawton Work Phone: [facility] 09-02-2022 11:09-0500 Body temperature 98.29 [degF] Yadira Israel APRN.SPRAY I PAINTER Work Phone: [facility] 09-02-2022 11:09-0500 Body weight 92.99 kg Yadira Israel APRN.SPRAY I PAINTER Work Phone: [facility] 09-02-2022 11:09-0500 Diastolic blood pressure 74 mm[Hg] Yadira Israel APRN.SPRAY I PAINTER Work Phone: [facility] 09-02-2022 11:09-0500 Heart rate 75 /min Yadira Israel APRN.SPRAY I PAINTER Work Phone: [facility] 09-02-2022 11:09-0500 Respiratory rate 21 /min Yadira Israel APRN.SPRAY I PAINTER Work Phone: [facility] 09-02-2022 11:09-0500 SaO2% (BldA) [Mass fraction] 98 % Yadira Israel APRN.SPRAY I PAINTER Work Phone: [facility] 09-02-2022 11:09-0500 Systolic blood pressure 148 mm[Hg] Yadira Israel APRN.SPRAY I PAINTER Work Phone: [facility] 08-24-2022 13:40-0500 Body mass index (BMI) [Ratio] 30.8 kg/m2 Dr. Edy Lawton Work Phone: [facility] 08-24-2022 13:40-0500 Body temperature 97.9 [degF] Dr. Edy Lawton Work Phone: [facility] 08-24-2022 13:40-0500 Body weight 94.[address] Edy Lawton Work Phone: [facility] 08-24-2022 13:40-0500 Diastolic blood pressure 90 mm[Hg] Dr. Edy Lawton Work Phone: [facility] 08-24-2022 13:40-0500 Heart rate 82 /min Dr. Edy Lawton Work Phone: [facility] 08-24-2022 13:40-0500 Respiratory rate 16 /min Dr. Edy Lawton Work Phone: [facility] 08-24-2022 13:40-0500 SaO2% (BldA) [Mass fraction] 96 % Dr. Edy Lawton Work Phone: [facility] 08-24-2022 13:40-0500 Systolic blood pressure 130 mm[Hg] Dr. Edy Lawton Work Phone: [facility] 01-13-2022 09:59-0400 Body height 175.[address] dEy Lawton Work Phone: [facility] Work Phone: 01-13-2022 09:59-0400 Body mass index (BMI) [Ratio] 30.8 kg/m2 Dr. Edy Lawton Work Phone: [facility] Work Phone: 01-13-2022 09:59-0400 Body temperature 97.9 [degF] Dr. Edy Lawton Work Phone: [facility] Work Phone: 01-13-2022 09:59-0400 Body weight 94.[address] Edy Lawton Work Phone: [facility] Work Phone: 01-13-2022 09:59-0400 Diastolic blood pressure 82 mm[Hg] Dr. Edy Lawton Work Phone: [facility] Work Phone: 01-13-2022 09:59-0400 Heart rate 62 /min Dr. Edy Lawton Work Phone: [facility] Work Phone: 01-13-2022 09:59-0400 Respiratory rate 14 /min Dr. Edy Lawton Work Phone: [facility] Work Phone: 01-13-2022 09:59-0400 SaO2% (BldA) [Mass fraction] 99 % Dr. Edy Lawton Work Phone: [facility] Work Phone: 01-13-2022 09:59-0400 Systolic blood pressure 156 mm[Hg] Dr. Edy Lawton Work Phone: [facility] Work Phone: 12-15-2021 07:55-0500 Body mass index (BMI) [Ratio] 30.5 kg/m2 Dr. Edy Lawton Work Phone: [facility] Work Phone: 12-15-2021 07:55-0500 Body temperature 95.7 [degF] Dr. Edy Lawton Work Phone: [facility] Work Phone: 12-15-2021 07:55-0500 Body weight 93.[address] Edy Lawton Work Phone: [facility] Work Phone: 12-15-2021 07:55-0500 Diastolic blood pressure 78 mm[Hg] Dr. Edy Lawton Work Phone: [facility] Work Phone: 12-15-2021 07:55-0500 Heart rate 72 /min Dr. Edy Lawton Work Phone: [facility] Work Phone: 12-15-2021 07:55-0500 Respiratory rate 16 /min Dr. Eyd Lawton Work Phone: [facility] Work Phone: 12-15-2021 07:55-0500 SaO2% (BldA) [Mass fraction] 98 % Dr. Edy Lawton Work Phone: [facility] Work Phone: 12-15-2021 07:55-0500 Systolic blood pressure 142 mm[Hg] Dr. Edy Lawton Work Phone: [facility] Work Phone: 10-01-2021 08:30-0500 Body mass index (BMI) [Ratio] 30.7 kg/m2 Dr. Edy Lawton Work Phone: [facility] Work Phone: 10-01-2021 08:30-0500 Body temperature 96.9 [degF] Dr. Edy Lawton Work Phone: [facility] Work Phone: 10-01-2021 08:30-0500 Body weight 94.[address] Edy Lawton Work Phone: [facility] Work Phone: 10-01-2021 08:30-0500 Diastolic blood pressure 96 mm[Hg] Dr. Edy Lawton Work Phone: [facility] Work Phone: 10-01-2021 08:30-0500 Heart rate 71 /min Dr. Edy Lawton Work Phone: [facility] Work Phone: 10-01-2021 08:30-0500 Respiratory rate 16 /min Dr. Edy Lawton Work Phone: [facility] Work Phone: 10-01-2021 08:30-0500 SaO2% (BldA) [Mass fraction] 97 % Dr. Edy Lawton Work Phone: [facility] Work Phone: 10-01-2021 08:30-0500 Systolic blood pressure 154 mm[Hg] Dr. Edy Lawton Work Phone: [facility] Work Phone: Encounters Encounter Date Encounter Type Care Provider Facility Start: 08-16-2025 ambulatory FABIÁN KIRKLAND MD Facili ty:[facility] Start: 08-16-2025 End: 08-16-2025 ambulatory Orlando Mora Facility:[facility] Start: 08-12-2025 End: 08-12-2025 ambulatory Fabián Kirkland Facility:[facility] Start: 07-17-2025 End: 07-17-2025 Emergency department patient visit Chinmay Rodriguez MD Work Phone: [facility] Comment on above: Lumbar strain, initi al encounter (Primary Dx) Start: 06-12-2025 End: 08-13-2025 ambulatory GENARO POWERS MD Facility:[facility] Start: 06-12-2025 End: 08-13-2025 Coordination of care plan DR QUINTON STALLWORTH MD [facility] Start: 06-11-2025 End: 06-11-[address] Fabián Kirkland MD Work Phone: -Laboratory [facility] Start: 06-11-2025 End: 06-11-[address] Fabián Kirkland MD -Laboratory [facility] Start: 06-11-2025 End: 06-11-2025 ambulatory Fabián Kirkland Facility:[facility] Start: 05-10-2025 End: 05-10-[address] Fabián Kirkland MD Work Phone: -Laboratory Start: 05-10-2025 End: 05-10-2025 Patient encounter procedure Saulo DYE-C -Laboratory Work Phone: Start: 05-10-2025 End: 05-10-2025 ambulatory Saulo DYE Facility:[facility] Start: 02-26-2025 End: 02-26-[address] Edy Lawton MD Work Phone: [facility] Work Phone: Start: 02-26-2025 End: 02-26-[address] Fabián Kirkland MD -[facility] Start: 02-26-2025 End: 02-26-2025 ambulatory Fabián Kirkland Facility:[facility] Start: 11-08-2024 End: 11-08-[address] Orlando Mora MD -[facility] Work Phone: Start: 11-08-2024 End: 11-08-2024 ambulatory Edy Lawton Facility:[facility] Start: 11-02-2024 End: 11-02-2024 ambulatory Fabián Kirkland Facility:[facility] Start: 03-23-2024 End: 03-23-2024 Office outpatient new 20 minutes Bryson Ayala MD Work Phone: [facility] Comment on above: Leg length discrepan cy Start: 03-23-2024 End: 03-23-2024 Subsequent hospital visit by physician Monica Wheeler PA-C Work Phone: [facility] Radiology Comment on above: Right foot pain Start: 03-09-2024 Orders Only Monica Washburn Work Phone: [facility] Comment on above: Right foot pain (Lashell paul Dx) Start: 02-22-2024 End: 05-24-[address] QUINTON STALLWORTH MD Facility:[facility] Start: 02-22-2024 End: 05-24-[address] QUINTON STALLWORTH MD [facility] Start: 12-13-2023 End: 01-31-2024 ambulatory MICHAEL ANDERSON MD Facility:[facility] Start: 12-13-2023 End: 01-31-2024 Physical therapy management MICHAEL ANDERSON MD [facility] Start: 11-22-2023 End: 11-22-[address] Edy Lawton Work Phone: [facility] Work Phone: Start: 11-22-2023 End: 11-22-[address] Edy Lawton Work Phone: [facility] Start: 10-27-2023 End: 10-27-[address] Edy Lawton Work Phone: [facility] Work Phone: Start: 09-06-2023 End: 09-06-[address] Edy Lawton Work Phone: [facility] Work Phone: Start: 12-02-2022 End: 12-02-[address] Edy Lawton Work Phone: [facility] Work Phone: Start: 12-02-2022 End: 12-02-[address] Edy Lawton Work Phone: [facility]-Laboratory Start: 11-03-2022 End: 11-03-[address] Edy Lawton Work Phone: [facility] Start: 10-15-2022 End: 10-15-2022 Patient encounter procedure MICHAEL ANDERSON MD [facility] Start: 09-18-2022 End: 09-18-[address] Edy Lawton Work Phone: [facility] Work Phone: Start: 09-18-2022 End: 09-18-[address] Edy Lawton Work Phone: [facility] Start: 09-08-2022 End: 09-08-[address] Edy Lawton Work Phone: [facility] Work Phone: Start: 09-08-2022 End: 09-08-[address] Edy Lawton Work Phone: [facility]-Laboratory Start: 09-08-2022 End: 09-08-[address] Edy Lawton Work Phone: [facility] Start: 09-02-2022 End: 09-02-2022 ambulatory EDY LAWTON Facility:[facility] Start: 09-02-2022 End: 09-02-2022 Emergency department patient visit Dr. Edy Lawton Work Phone: [facility]-Emergency Department Start: 09-02-2022 End: 09-02-2022 Patient encounter procedure Yadira Israel APRN.SPRAY I PAINTER Work Phone: [facility] Comment on above: Pleuritic pain (Prim matt Dx) Start: 08-24-2022 End: 08-24-[address] Edy Lawton Work Phone: [facility] Start: 08-12-2022 End: 08-12-[address] Edy Lawton Work Phone: [facility]-Pulmonary Services/Neurology Start: 03-15-2022 End: 04-27-2022 Physical therapy management LINDA MALLOY PA-C [facility] Start: 01-13-2022 End: 01-13-[address] Edy Lawton Work Phone: [facility] Start: 01-06-2022 Non-patient / Non-visit Dr. Janette Lawton Work Phone: [facility] Start: 01-06-2022 End: 01-06-[address] Edy Lawton Work Phone: [facility]-Cardiovascula r Services Start: 12-15-2021 End: 12-15-[address] Edy Lawton Work Phone: [facility]-Laboratory, [facility] Start: 12-04-2021 End: 12-04-2021 Patient encounter procedure MICHAEL ANDERSON MD [facility] Start: 10-01-2021 End: 10-01-[address] Edy Lawton Work Phone: [facility] Procedures Date Procedure Procedure Detail Performing Clinician Start: 07-17-2025 Ct abdomen & pelvis w/o contrast material Chinmay Rodriguez MD Work Phone: Start: 07-17-2025 Comprehensive metabo lic panel Chinmay Rodriguez MD Work Phone: Start: 06-11-2025 Urnls dip stick/tabl et reagent auto microscopy Dr. Fabián Kirkland MD Work Phone: Start: 02-26-2025 Urnls dip stick/tabl et reagent auto microscopy Dr. Edy Lawton MD Work Phone: Start: 02-26-2025 Vitamin D, 25-hydrox y measurement Dr. dEy Lawton MD Work Phone: Comment on above: Vitamin D StatusDefi ciency: <20 ng/mL (50nmol/L)Insufficiency: 20-30 ng/mL (50-75 nmol/L)Sufficiency: 30-100 ng/mL (75-250 nmol/L)Toxicity: >100 ng/mL (>250 nmol/L) Start: 09-18-[address] Janette Lawton Work Phone: Start: 09-02-2022 Plain chest X-ray Dr. Juan Carlos Lawton Work Phone: Start: 09-02-2022 CT of thorax, abdome n and pelvis with contrast Dr. Edy Lawton Work Phone: Start: 08-12-2022 Plain chest X-ray Dr. Juan Carlos Lawton Work Phone: Plan of Treatment Date Care Activity Detail Author Start: 05-27-2026 DTaP/Tdap/Td Vaccine s (2 - Td or Tdap) DTaP/Tdap/Td Vaccines (2 - Td or Tdap) [facility] Start: 05-27-2026 DTaP/Tdap/Td Vaccine s (3 - Td or Tdap) DTaP/Tdap/Td Vaccines (3 - Td or Tdap) [facility] Start: 05-27-2026 Urine microalbumin profile DTAP,TDAP,TD (3 - Td or Tdap) [facility] Start: 06-10-2025 COVID-19 Vaccine ( season) COVID-19 Vaccine ( season) [facility] Start: 09-01-2025 Influenza vaccination Influenza Vacc ine (#1) [facility] Start: 03-23-2024 End: 03-23-2024 Patient encounter procedure 03/23/2024 2:00 PM EDT Office Visit [facility] [address] [place] [id number] Bryson Ayala MD [address] [facility] [address] [place] [address] [facility] Start: 03-23-2024 End: 03-09-2025 XR Foot - right 3 Views [facility] Work Phone: Comment on above: Expected: 03/23/2024 , Expires: 03/09/2025 Once for 1 Occurrenc es starting 03/23/2024 until 03/23/2024 Start: 03-23-2024 End: 03-23-2024 Documentation procedure 03/23/2024 1:30 PM EDT Documentation [facility] [address] [place] [id number] [facility] Start: 04-25-2023 DIABETES SCREEN DIABETES SCREEN [facility] Start: 09-08-2022 Patient referral [facility] Work Phone: Start: 09-02-2022 [facility] Start: 01-13-2022 Patient referral [facility] Work Phone: Start: 10-10-2021 ADVANCE DIRECTIVE DISCUSSION ADVANCE DIRECTIVE DISCUSSION [facility] Start: 10-10-2021 DEPRESSION ASSESSMENT DEPRESSION ASS ESSMENT [facility] Start: 2015 RSV Immunization for Adults (1 - 1-dose 75+ series) RSV Immunization for Adults (1 - 1-dose 75+ series) [facility] Start: 11-15-2011 SHINGRIX VACCINE (2 of 3) SHINGRIX VACCINE (2 of 3) [facility] Start: 11-15-2011 Zoster Vaccines (2 o f 3) Zoster Vaccines (2 of 3) [facility] Start: 2000 RSV Immunization age d 60 or older (1 - 1-dose 60+ series) RSV Immunization aged 60 or older (1 - 1-dose 60+ series) [facility] Start: 1952 Depression Screening Depression Scre ening [facility] Start: 1940 Lipid panel Lipid Panel [facility] Start: 1940 Medicare Annual Wellness (AWV) Medicare Annual Wellness (AWV) [facility] CTA Chest vessels WO and W contrast IV [facility] OUTSIDE PROCEDURE SCAN OUTSIDE P ROCEDURE SCAN Procedures Ordered: 03/22/2024 [facility] Comment on above: Ordered: 03/22/2024 Patient Education ED Chest Pain, Noncardiac ED Weakness (Uncertain Cause) Aneurisma de aorta tor cica [facility] Work Phone: Patient referral [facility] Work Phone: Immunizations Immunization Date Immunization Notes Care Provider Fa cili 08-27-2023 Influenza High-Dose Quadrivalent Dr. Edy Lawton Work Phone: [facility] 08-27-2023 influenza virus vacc ine, unspecified formulation Chinmay Rodriguez MD Work Phone: [facility] 01-05-2021 Covid (Moderna) Dr. Edy wong Work Phone: [facility] 12-08-2020 Covid (Moderna) Dr. Edy wong Work Phone: [facility] 07-08-2020 influenza, injectabl e, quadrivalent, preservative free Dr. Edy Lawton Work Phone: [facility] 07-08-2020 influenza, seasonal, injectable Dr. Edy Lawton Work Phone: [facility] 07-08-2020 Fluad Quad (65yr up)(PF) 60 mcg (15 mcg x 4)/0.5mL IM syringe (flu vac Dr. Edy Lawton Work Phone: [facility] Work Phone: 08-27-[address] Edy Lawton Work Phone: [facility] 07-07-2019 influenza, high dose seasonal, preservative-free Yadira Richard PEDIATRIC ALLERGIST.SPRAY I PAINTER Work Phone: [facility] 06-26-2018 influenza, high dose seasonal, preservative-free Yadira Richard PEDIATRIC ALLERGIST.SPRAY I PAINTER Work Phone: [facility] Work Phone: 07-01-2017 influenza, high dose seasonal, preservative-free Yadira Richard PEDIATRIC ALLERGIST.SPRAY I PAINTER Work Phone: [facility] 07-21-2016 influenza, high dose seasonal, preservative-free Yadira Richard PEDIATRIC ALLERGIST.SPRAY I PAINTER Work Phone: [facility] 05-27-2016 tetanus toxoid, redu jennifer diphtheria toxoid, and acellular pertussis vaccine, adsorbed Yadira Richard PEDIATRIC ALLERGIST.SPRAY I PAINTER Work Phone: [facility] 08-07-2015 influenza, high dose seasonal, preservative-free Yadira Richard PEDIATRIC ALLERGIST.SPRAY I PAINTER Work Phone: [facility] 08-07-2015 pneumococcal polysaccharide vaccine, 23 valent Yadira Richard PEDIATRIC ALLERGIST.SPRAY I PAINTER Work Phone: [facility] 08-06-2015 influenza, seasonal, injectable Yadira Richard PEDIATRIC ALLERGIST.SPRAY I PAINTER Work Phone: [facility] Work Phone: 08-06-2014 pneumococcal conjuga te vaccine, 13 valent Yadira Richard PEDIATRIC ALLERGIST.SPRAY I PAINTER Work Phone: [facility] Work Phone: 08-03-2014 influenza, seasonal, injectable, preservative free Yadira Richard PEDIATRIC ALLERGIST.SPRAY I PAINTER Work Phone: [facility] 12-03-2013 tetanus toxoid, redu jennifer diphtheria toxoid, and acellular pertussis vaccine, adsorbed Yadira Richard PEDIATRIC ALLERGIST.SPRAY I PAINTER Work Phone: [facility] 06-25-2013 influenza virus vacc ine, unspecified formulation Yadira Richard PEDIATRIC ALLERGIST.SPRAY I PAINTER Work Phone: [facility] [place] 09-20-2011 zoster vaccine, live Rhodaсветлана belkysnidia Richard THOMASON.SPRAY I PAINTER Work Phone: [facility] Work Phone: 07-24-2011 influenza virus vacc ine, unspecified formulation Yadira Israel APRN.SPRAY I PAINTER Work Phone: [facility] 07-14-2010 influenza virus vacc ine, unspecified formulation Ydaira Israel APRN.SPRAY I PAINTER Work Phone: [facility] Work Phone: 07-18-2009 influenza virus vacc ine, unspecified formulation Yadira Israel APRN.[facility] Work Phone: [facility] Work Phone: 09-07-2006 influenza virus vacc ine, unspecified formulation Yadira Israel APRN.[facility] Work Phone: [facility] 09-20-2005 pneumococcal polysaccharide vaccine, 23 valent Yadira Israel APRN.[facility] Work Phone: [facility] Work Phone: 07-10-2004 tetanus and diphther ia toxoids, not adsorbed, for adult use Yadira Israel APRN.[facility] Work Phone: [facility] Work Phone: Payers Date Payer Category Payer Self-pay [id number] 2005 [facility] [id number] 2005 Private Health Insurance [id number] 2005 Private Health Insurance [id number] 2005 Medicare [id number] 2005 Medicare [id number] 1940 Unknown [id number] 1940 Unknown [id number] [id number] 1940 Unknown [id number] 1940 Unknown [id number] Unknown [id number] Unknown [id number] Unknown [id number] [id number] Unknown [id number] [id number] Unknown [id number] [id number] Unknown [id number] [id number] Unknown [id number] [id number] Social History Date Type Detail Facility [facility] Start: 1940 Sex Assigned At Male A [facility] Start: 01-13-2022 End: 10-27-2023 Tobacco smoking status DCIS Unknown if ever smoked [facility] Start: 08-27-2019 Spouse/ Signif icant Other [facility] Start: 08-27-2019 Cigarettes;Chew [facility] Tobacco smoking status [facility] Start: 09-02-2022 End: 03-23-2024 Tobacco smoking status NHIS Ex-smoker [facility] End: 12-30-2003 History of tobacco use Current smoker [facility] End: 12-30-2003 History of tobacco use Cigar Smoker [facility] Start: 09-02-2022 Tobacco use and exposure Former smokeless tobacco user [facility] End: 12-30-2003 History of tobacco use Chews Tobacco [facility] Start: 09-02-2022 Alcohol intake Current drinke r of alcohol (finding) [facility] Start: 09-02-2022 Tobacco Comment 2006 [facility] Start: 12-29-2016 Alcohol Comment daily [facility] Start: 1940 Sex Assigned At Not on file [facility] Start: 03-23-2024 Gender identity Not on file [facility] History of tobacco use Cigarette Smoker [facility] Start: 03-23-2024 Tobacco use and exposure Smokeless tobacco non-user [facility] Start: 03-23-2024 History of Social function [facility] Start: 12-04-2021 End: 02-16-2024 Sex Male (finding) [facility] Functional Status Date Assessment Result Facility 12-13-2023 Functional Status OBJECTIVE Vitals: BP 135/61 Gait: amb with no AD, slight ER of right LE Transfers: no deficits, use of UEs Sensation: localized numbness reported at anterior L knee Reflexes: NT Edema: none AROM: WNL Palpation: pain with palpation at medial hamstring Slump test: neg bilat 90-90 hamstring: ~45deg bilat Lateral Joint Line Palpation: neg bilat Medial Joint Line Palpation: pain reported L [facility] 03-15-2022 Functional Status Objective: Cardiovascular screen: BP: 118/70 HR: 82 BPM O2 Sat: 94% Gait: limited TKE during swing phase of gait on the L. Ambulates with FWW Weight bearing status: WBAT Effusion: min to no effusion present, no excess redness or tenderness upon palpation no obvious signs of infection. Functional Strength: ASLR: 15 deg lag: [facility] Mental Status Date Assessment Result Facility 09-02-2022 Cognitive function Level Of Cons ciousness Awake;Alert;Appropriate [facility] Work Phone: Clinical Notes 11-03-2015 to 07-17-2025 Discharge InstructionsMIKEY Martinez - 07/17/2025 4:12 PM EDTMIKEY Martinez - 07/17/2025 4:12 PM EDTRankhari Rodriguez MD - 07/17/2025 4:10 PM EDT Note Date & Type Note Facility 07-17-2025 Hospital Discharg e instructions Chinmay Rodriguez MD - 07/17/2025 6:03 PM EDT Please return to the emergency department if you develop blood in the urine dysuria frequency fevers or worsening pain documented in this encounter [facility] 07-17-2025 Emergency depart ent Note Introduced myself as pt liaison and explained role and provided support to rashi Porter in [facility] , pt arrived via EMS. [facility] 07-17-2025 Emergency departm ent Note Introduced myself as pt liaison and explained role and provided support to daughter Charlotte in [facility] , pt arrived via EMS. Images from the original note were not included. EMERGENCY DEPARTMENT ENCOUNTER Pt Name: Silverio Grover Birthdate 1940 Date of evaluation: 07/17/2025 ED Provider: Chinmay Rodriguez MD CHIEF COMPLAINT Chief Complaint Patient presents with Back Pain Back pain started 4 days ago, denies issues voiding. HISTORY OF PRESENT ILLNESS (Location/Symptom, Timing/Onset, Context/Setting, Quality, Duration, Modifying Factors, Severity) Note limiting factors. I wore appropriate PPE for the entirety of this encounter. HPI Silverio Grover is a 85 y.o. who presents to the emergency department for evaluation of back pain. States has been going on for quite some time's hurts on his right flank denies dysuria frequency abdominal pain radiating pain difficulty moving legs sensory loss muscle weakness Nursing Notes were reviewed. REVIEW OF SYSTEMS Review of Systems Pertinent positives and negatives as per HPI. PAST MEDICAL HISTORY Medical History[1] SURGICAL HISTORY Surgical History[2] CURRENT MEDICATIONS There are no discharge medications for this patient. ALLERGIES Lisinopril FAMILY HISTORY Family History[3] SOCIAL HISTORY Social History[4] SCREENINGS PHYSICAL EXAM ED Triage Vitals [07/17/25 1612] Temp Heart Rate Resp BP 36.1 C (96.9 F) 74 18 (!) 198/111 SpO2 Temp Source Heart Rate Source Patient Position 95 % Temporal Monitor -- BP Location FiO2 (%) -- -- Physical Exam Vitals and nursing note reviewed. Constitutional: General: He is not in acute distress. Appearance: Normal appearance. He is well-developed. He is not diaphoretic. HENT: Head: Normocephalic and atraumatic. Mouth/Throat: Mouth: Mucous membranes are moist. Pharynx: Oropharynx is clear. Eyes: Extraocular Movements: Extraocular movements intact. Conjunctiva/sclera: Conjunctivae normal. Pupils: Pupils are equal, round, and reactive to light. Cardiovascular: Rate and Rhythm: Normal rate and regular rhythm. Pulses: Normal pulses. Heart sounds: Normal heart sounds. No murmur heard. Pulmonary: Effort: Pulmonary effort is normal. No respiratory distress. Breath sounds: Normal breath sounds. Abdominal: Palpations: Abdomen is soft. Tenderness: There is no abdominal tenderness. Musculoskeletal: General: No swelling or tenderness. Cervical back: Normal range of motion and neck supple. Skin: General: Skin is warm and dry. Capillary Refill: Capillary refill takes less than 2 seconds. Neurological: General: No focal deficit present. Mental Status: He is alert and oriented to person, place, and time. Mental status is at baseline. Comments: NIH stroke scale 0 Psychiatric: Mood and Affect: Mood normal. DIAGNOSTIC RESULTS RADIOLOGY (Per Emergency Physician): Interpretation per the Radiologist below, if available at the time of this note: CT abdomen pelvis wo IV contrast Final Result 1. No radiopaque urinary calculi or hydroureteronephrosis. 2. Indeterminate liver lesion. This could represent a cyst or hemangioma but recommend MRI with contrast for further evaluation. 3. Hyperdense left renal lesion which could represent a solid lesion or complex cyst. Recommend MRI with contrast for further evaluation. 4. Cholelithiasis. 5. Colonic diverticulosis. Report Dictated on Electronically Signed By: Martni Guillen MD Electronically Signed Date/Time: 07/17/2025 5:51 PM EDT LABS: Labs Reviewed COMPREHENSIVE METABOLIC PANEL - Abnormal Result Value SODIUM 136 POTASSIUM 3.7 CHLORIDE 104 CARBON DIOXIDE 22 (*) ANION GAP 10 UREA NITROGEN 15 CREATININE 0.90 GLUCOSE 136 (*) CALCIUM 9.1 AST (SGOT) 32 ALT 24 ALKALINE PHOSPHATASE 116 ALBUMIN 3.9 BILIRUBIN, TOTAL 0.6 TOTAL PROTEIN 7.0 eGFR 83.7 CBC WITH AUTO DIFFERENTIAL - Normal Auto WBC 7.1 RBC 4.73 Hemoglobin 14.0 Hematocrit 41.6 MCV 87.9 MCH 29.6 MCHC 33.7 RDW 13.1 Platelets 220 MPV 10.0 nRBC 0.0 Neutrophils Relative 61.2 Lymphocytes Relative 26.3 Monocytes Relative 9.1 Eosinophils Relative 2.4 Basophils Relative 0.6 Immature Grans % 0.4 Neutrophils Absolute 4.4 Lymphocytes Absolute 1.9 Monocytes Absolute 0.7 Eosinophils Absolute 0.2 Basophils Absolute 0.0 Immature Grans Absolute 0.0 LIPASE - Normal LIPASE 20 All other labs were within normal range or not returned as of this dictation. EMERGENCY DEPARTMENT COURSE and DIFFERENTIAL DIAGNOSIS/MDM: Vitals: Vitals: 07/17/25 1612 BP: (!) 198/111 Pulse: 74 Resp: 18 Temp: 36.1 C (96.9 F) TempSrc: Temporal SpO2: 95% The patient presented for evaluation of right paraspinal pain. Differential diagnosis includes kidney stone. CT scan negative for acute finding labs also negative for acute finding did improve on exam. Does not have a straight leg sign but does not have any red flags for back pain no trauma well-appearing overall discharge with strict return precautions MEDICAL DECISION MAKING: I considered, but did not perform, additional testing such MRI Spine or Brain, as well as admission or transfer to a higher level of care. I utilized an evidence-based risk rating tool (CMT) along with my training and experience to weigh the risk of discharge against the risks of further testing, imaging, or hospitalization. At this time, I estimate the risks of additional testing, imaging, or hospitalization (in the case of discharge) to be equal to or greater than the risk of discharge. Given the symptoms and findings present at this time, the chance of SEA or SCC is so remote that additional testing or imaging is more likely to harm the patient than diagnose SEA. [id number] SHARED DECISION MAKING: I discussed my risk assessment with the patient. The patient understands and consents to the risk of disposition/plan, as well as the risk of uncertainty in estimating outcomes. [id number] Diagnoses as of 07/17/252027 Lumbar strain, initial encounter PROCEDURES: Unless otherwise noted below, none Procedures FINAL IMPRESSION 1. Lumbar strain, initial encounter DISPOSITION Discharge 07/17/2025 06:03:46 PM PATIENT REFERRED TO: Fabián Kirkland MD [address] [facility] [address] [facility] [phone] DISCHARGE MEDICATIONS: There are no discharge medications for this patient. (Comment: Please note this report has been produced using speech recognition software and may contain errors related to that system including errors in grammar, punctuation, and spelling, as well as words and phrases that may be inappropriate. If there are any questions or concerns please feel free to contact the dictating provider for clarification.) Chinmay Rodriguez MD (electronically signed) Emergency Medicine Provider [1] No past medical history on file. [2] No past surgical history on file. [3] No family history on file. [4] Social History Socioeconomic History Marital status: Tobacco Use Smoking status: Former Types: Cigarettes Smokeless tobacco: Never Chinmay Rodriguez MD 07/17/252029 documented in this encounter [facility] 07-17-2025 Physician Emergen cy department Note Images from the original note were not included. EMERGENCY DEPARTMENT ENCOUNTER Pt Name: Silverio Grover Birthdate 1940 Date of evaluation: 07/17/2025 ED Provider: Chinmay Rodriguez MD CHIEF COMPLAINT Chief Complaint Patient presents with Back Pain Back pain started 4 days ago, denies issues voiding. HISTORY OF PRESENT ILLNESS (Location/Symptom, Timing/Onset, Context/Setting, Quality, Duration, Modifying Factors, Severity) Note limiting factors. I wore appropriate PPE for the entirety of this encounter. HPI Silverio Grover is a 85 y.o. who presents to the emergency department for evaluation of back pain. States has been going on for quite some time's hurts on his right flank denies dysuria frequency abdominal pain radiating pain difficulty moving legs sensory loss muscle weakness Nursing Notes were reviewed. REVIEW OF SYSTEMS Review of Systems Pertinent positives and negatives as per HPI. PAST MEDICAL HISTORY Medical History[1] SURGICAL HISTORY Surgical History[2] CURRENT MEDICATIONS There are no discharge medications for this patient. ALLERGIES Lisinopril FAMILY HISTORY Family History[3] SOCIAL HISTORY Social History[4] SCREENINGS PHYSICAL EXAM ED Triage Vitals [07/17/25 1612] Temp Heart Rate Resp BP 36.1 C (96.9 F) 74 18 (!) 198/111 SpO2 Temp Source Heart Rate Source Patient Position 95 % Temporal Monitor -- BP Location FiO2 (%) -- -- Physical Exam Vitals and nursing note reviewed. Constitutional: General: He is not in acute distress. Appearance: Normal appearance. He is well-developed. He is not diaphoretic. HENT: Head: Normocephalic and atraumatic. Mouth/Throat: Mouth: Mucous membranes are moist. Pharynx: Oropharynx is clear. Eyes: Extraocular Movements: Extraocular movements intact. Conjunctiva/sclera: Conjunctivae normal. Pupils: Pupils are equal, round, and reactive to light. Cardiovascular: Rate and Rhythm: Normal rate and regular rhythm. Pulses: Normal pulses. Heart sounds: Normal heart sounds. No murmur heard. Pulmonary: Effort: Pulmonary effort is normal. No respiratory distress. Breath sounds: Normal breath sounds. Abdominal: Palpations: Abdomen is soft. Tenderness: There is no abdominal tenderness. Musculoskeletal: General: No swelling or tenderness. Cervical back: Normal range of motion and neck supple. Skin: General: Skin is warm and dry. Capillary Refill: Capillary refill takes less than 2 seconds. Neurological: General: No focal deficit present. Mental Status: He is alert and oriented to person, place, and time. Mental status is at baseline. Comments: NIH stroke scale 0 Psychiatric: Mood and Affect: Mood normal. DIAGNOSTIC RESULTS RADIOLOGY (Per Emergency Physician): Interpretation per the Radiologist below, if available at the time of this note: CT abdomen pelvis wo IV contrast Final Result 1. No radiopaque urinary calculi or hydroureteronephrosis. 2. Indeterminate liver lesion. This could represent a cyst or hemangioma but recommend MRI with contrast for further evaluation. 3. Hyperdense left renal lesion which could represent a solid lesion or complex cyst. Recommend MRI with contrast for further evaluation. 4. Cholelithiasis. 5. Colonic diverticulosis. Report Dictated on Electronically Signed By: Martin Guillen MD Electronically Signed Date/Time: 07/17/2025 5:51 PM EDT LABS: Labs Reviewed COMPREHENSIVE METABOLIC PANEL - Abnormal Result Value SODIUM 136 POTASSIUM 3.7 CHLORIDE 104 CARBON DIOXIDE 22 (*) ANION GAP 10 UREA NITROGEN 15 CREATININE 0.90 GLUCOSE 136 (*) CALCIUM 9.1 AST (SGOT) 32 ALT 24 ALKALINE PHOSPHATASE 116 ALBUMIN 3.9 BILIRUBIN, TOTAL 0.6 TOTAL PROTEIN 7.0 eGFR 83.7 CBC WITH AUTO DIFFERENTIAL - Normal Auto WBC 7.1 RBC 4.73 Hemoglobin 14.0 Hematocrit 41.6 MCV 87.9 MCH 29.6 MCHC 33.7 RDW 13.1 Platelets 220 MPV 10.0 nRBC 0.0 Neutrophils Relative 61.2 Lymphocytes Relative 26.3 Monocytes Relative 9.1 Eosinophils Relative 2.4 Basophils Relative 0.6 Immature Grans % 0.4 Neutrophils Absolute 4.4 Lymphocytes Absolute 1.9 Monocytes Absolute 0.7 Eosinophils Absolute 0.2 Basophils Absolute 0.0 Immature Grans Absolute 0.0 LIPASE - Normal LIPASE 20 All other labs were within normal range or not returned as of this dictation. EMERGENCY DEPARTMENT COURSE and DIFFERENTIAL DIAGNOSIS/MDM: Vitals: Vitals: 07/17/25 1612 BP: (!) 198/111 Pulse: 74 Resp: 18 Temp: 36.1 C (96.9 F) TempSrc: Temporal SpO2: 95% The patient presented for evaluation of right paraspinal pain. Differential diagnosis includes kidney stone. CT scan negative for acute finding labs also negative for acute finding did improve on exam. Does not have a straight leg sign but does not have any red flags for back pain no trauma well-appearing overall discharge with strict return precautions MEDICAL DECISION MAKING: I considered, but did not perform, additional testing such MRI Spine or Brain, as well as admission or transfer to a higher level of care. I utilized an evidence-based risk rating tool (CMT) along with my training and experience to weigh the risk of discharge against the risks of further testing, imaging, or hospitalization. At this time, I estimate the risks of additional testing, imaging, or hospitalization (in the case of discharge) to be equal to or greater than the risk of discharge. Given the symptoms and findings present at this time, the chance of SEA or SCC is so remote that additional testing or imaging is more likely to harm the patient than diagnose SEA. [id number] SHARED DECISION MAKING: I discussed my risk assessment with the patient. The patient understands and consents to the risk of disposition/plan, as well as the risk of uncertainty in estimating outcomes. [id number] Diagnoses as of 07/17/252027 Lumbar strain, initial encounter PROCEDURES: Unless otherwise noted below, none Procedures FINAL IMPRESSION 1. Lumbar strain, initial encounter DISPOSITION Discharge 07/17/2025 06:03:46 PM PATIENT REFERRED TO: Fabián Kirkland MD [facility] [address] [facility] [phone] DISCHARGE MEDICATIONS: There are no discharge medications for this patient. (Comment: Please note this report has been produced using speech recognition software and may contain errors related to that system including errors in grammar, punctuation, and spelling, as well as words and phrases that may be inappropriate. If there are any questions or concerns please feel free to contact the dictating provider for clarification.) Chinmay Rodriguez MD (electronically signed) Emergency Medicine Provider [1] No past medical history on file. [2] No past surgical history on file. [3] No family history on file. [4] Social History Socioeconomic History Marital status: Tobacco Use Smoking status: Former Types: Cigarettes Smokeless tobacco: Never Chinmay Rodriguez MD 07/17/252029 [facility] 11-08-2024 Evaluation note Diagnosis Onset Date Resolution Dilated aortic root acute Lorri ry 2024 1:02pm Essential hypertension chronic Mp bradley 2024 1:02pm [facility] Work Phone: [phone]) 238-814506-14-2024 History of Present illness Narrative* Bryson Ayala MD - 03/23/2024 2:00 PM EDT [facility] [address] [place] [id number] Dept: [phone] Dept Silverio Grover 1940 [id number] 03/23/2024 HISTORY OF PRESENT ILLNESS: Silverio is a 83 y.o. male here today for evaluation of his right foot Silverio states the problem has been present for about 2 years Silverio states the problem started after his right knee replacement . He had it replaced by Dr. Michael Anderson, and afterwards he noticed that his sock was rolling under his foot. He saw Dr. Stallworth for another opinion, and was sent to PT. He was given a lift in his left shoe due to leg length discrepancy, and now is able to walk longer distances again. Silverio has tried or has been treated with the following: shoe insert left shoe, and modifying his activity level and avoiding those activities which aggravate the problem. Review of Systems Surgical Risk Factors: Allergies to Metals or Latex: NO Have you been treated for a blood clot: NO Have you had a history of bleeding disorder: NO Have you had a history of Anesthetic problems: NO Do you have tendency to bruise easily: NO Do you experience prolonged or excessive bleeding from cuts or after surgery: NO General/Constitutional: General: no Cancer: NO Acute/Chronic Infections: NO HEENT/Neck: Problems with theThroat: NO Problems with the Eyes: NO Problems with the Ears: NO Problems with the Nose and Sinuses: NO Endocrine: Problems with Diabetes: NO Problems with Thyroid Disorder: NO Thorax: Problems with the Heart: NO Problems with the Lung: no Cardiovascular: Problems with Circulation: NO Problems with High Blood pressure: yes Gastrointestinal: Problems with Ulcers: NO Problems with the Liver: no Problems with Bowel Habits: NO Genitourinary: Problems with the Genitals: NO Urinary problems: NO Kidney disease or stones: NO Skin: Any general problems: NO Neurologic: Dizziness, blurred vision, headaches, problems with balance : NO Seizures or Stroke: NO Psychiatric: Emotional or Psychological disorders: NO Depression or Anxiety: no PAST MEDICAL HISTORY: No past medical history on file. Allergies Allergen Reactions Lisinopril Nausea And Vomiting PHYSICAL EXAM: Ht 1.753 m (5' 9) Wt 95.3 kg (210 lb) BMI 31.01 kg/m This is an age appropriate appearing male who is alert and oriented x 3. The patient appears well nourished. Psychiatric: The patient is able to verbalize normally and seems to have a good understanding of his situation. left lower extremity examination Lymphatic System: Swelling of the left knee Vascular: Dorsalis pedis pulse: 2+ Posterior tibial pulse: 2+ Capillary refill is less than 3 seconds Skin/nails: Normal appearance, warm and dry Hair growth present on foot and toes Neurologic: Sensation intact to light touch throughout the foot and the ankle Muscle: Muscle strength testing: Anterior tibialis: 5/5 Posterior tibialis: 5/5 Peroneus brevis: 5/5 Peroneus longus: 5/5 Gastrocsoleus: 5/5 Examination of the left and right foot. Right foot: Functional arch height is well-maintained with weightbearing. No deformities are noted.There are no areas of tenderness. Left foot: Decrease in longitudinal arch height is noted with slight external rotation of the foot with weightbearing activities. No areas of tenderness are noted. Gait and Station: Silverio is able to ambulate with a normal gait Silverio is able to stand unassisted and maintains balance RADIOGRAPHIC INTERPRETATION: 3 weight bearing views of the right foot were obtained and the following is my interpretation of the findings present of the X-rays: Mild navicular cuneiform arthrosis is present. Functional arch height is well-maintained on the weightbearing lateral. REVIEW OF RELATED PREVIOUS DOCUMENTATION: No documents related to the current problem(s) were reviewed or no documents were available for review. LABORATORY RESULT INTERPRETATION: No labs were reviewed/No labs available for review DIAGNOSIS: Diagnosis Plan 1. Leg length discrepancy Ambulatory referral for Orthotics MEDICAL DECISION MAKING: I had a discussion with Silverio to make sure he has a good understanding of the diagnoses/issues that I think are present today and understands the plan moving forward. I explained to Silverio that I think his sock was rolling secondary to his leg length discrepancy. The temporary shoe lift which she has seems to have alleviated the issue. We talked about getting hortensia full-length custom molded foot orthosis so that it does not slide around in his shoe. Silverio was given a prescription for a custom molded foot orthosis today. I explained that once he gets the orthosis he needs to increase daily wear one hour per day until he is using it multimedia designer. Iexplained that there can be risks associated with the use of a foot orthosis. I explained that a foot orthosis can lead to other problems both in the foot and in the lower extremity that are at timesunanticipated. If the orthosis is uncomfortable or makes his problem worse, or if he develops another problem as a result of the orthosis then he needs to have it adjusted by the pearl glue operator. If Silverio has any other questions pertaining to orthosis they were told to call me. Follow up if symptoms worsen or fail to improve. Electronically signed by Bryson Ayala MD [facility] Department of Orthopedic surgery 03/23/2024 2:06 PM Voice recognition was used for portions of this note and although it was reviewed prior to signing some incorrect words or phrases could be present. documented in this [facility]01-06-2023 Note ORIGINAL EXAMINATION: CT OF THE LEFT KNEE WITHOUT CONTRAST 10/15/2022 11:38 am TECHNIQUE: CT of the left knee was performed without the administration of intravenous contrast. Multiplanar reformatted images are provided for review. Automated exposure control, iterative reconstruction, and/or weight based adjustment of the mA/kV was utilized to reduce the radiation dose to as low as reasonably achievable. COMPARISON: None. HISTORY ORDERING SYSTEM PROVIDED HISTORY: Reason for Exam: UNILATERAL POST TRAUMATIC OSTEOARTHRITIS LEFT KNEE. FINDINGS: No acute fracture or dislocation. Patchy decreased osseous mineralization noted. Involving the proximal tibial metaphysis extending to the proximal metadiaphysis, there is a predominantly decreased attenuation, circumscribed lesion which exhibits low-grade partial and ostial scalloping superiorly and exhibits intracortical extension inferiorly. There is subtle internal mineralization superiorly, best seen on sagittal image 45/105. The lesion measures 0.8 x 0.8 x 4.1 cm (AP, transverse, craniocaudal dimension). There is are no aggressive features such as high-grade endosteal scalloping, periosteal reaction, or full-thickness cortical breakthrough. No soft tissue component is evident. No visible aggressive osseous lesions on this exam. Small bone islands are present of the distal femur. Likely tug/traction lesion of the posterior cortex of the proximal tibia. Ibln-dr-ormxakxz tricompartmental joint space narrowing with marginal osteophyte formation and chondrocalcinosis. Moderate volume effusion. Tiny popliteal cyst centrally. Slight lateral subluxation of the patella noted, likely pseudosubluxation given sizable joint effusion. Visible tendons appear grossly intact. Ligaments are poorly evaluated on this examination. Multifocal areas atrophy are noted of the medial aspect of the soleus muscle.. There is also mild to moderate gluteus medius and minimus atrophy. Provided images of the left hip exhibit prominent marginal osteophyte formation subchondral cyst of the hip. No visible aggressive osseous lesions or acute osseous abnormality. Surgical changes are noted of the lower midline abdominal wall. Prominent colonic diverticulosis noted without evidence of acute diverticulitis. Provided images of the ankle exhibit no acute osseous abnormalities or aggressive osseous lesions. Partially visible hindfoot and midfoot degenerative changes. Dorsal subcutaneous edema of the foot is also partially visible. IMPRESSION: 1. No acute osseous abnormalities. 2. Nonaggressive lesion of the proximal tibia which favors a fibrous or less likely osseous lesion, as detailed above. 3. Gdqt-dm-mbhlliaz tricompartmental degenerative change with chondrocalcinosis. Moderate volume effusion. 4. 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 Interpreted by: Vasquez Chandra DO Preliminary Report By: Vasquez Chandra DO Electronically signed By Vasquez Chandra DO Dictated Date: 10/15/2022 11:40:05 AM Prelim Date: 10/15/2022 11:48:38 AM Sign Date: 10/15/2022 11:48:38 AM Ordering Provider: [facility]01-06-2023 Note ORIGINAL EXAMINATION: CT OF THE LEFT KNEE WITHOUT CONTRAST 10/15/2022 11:38 am TECHNIQUE: CT of the left knee was performed without the administration of intravenous contrast. Multiplanar reformatted images are provided for review. Automated exposure control, iterative reconstruction, and/or weight based adjustment of the mA/kV was utilized to reduce the radiation dose to as low as reasonably achievable. COMPARISON: None. HISTORY ORDERING SYSTEM PROVIDED HISTORY: Reason for Exam: UNILATERAL POST TRAUMATIC OSTEOARTHRITIS LEFT KNEE. FINDINGS: No acute fracture or dislocation. Patchy decreased osseous mineralization noted. Involving the proximal tibial metaphysis extending to the proximal metadiaphysis, there is a predominantly decreased attenuation, circumscribed lesion which exhibits low-grade partial and ostial scalloping superiorly and exhibits intracortical extension inferiorly. There is subtle internal mineralization superiorly, best seen on sagittal image 45/105. The lesion measures 0.8 x 0.8 x 4.1 cm (AP, transverse, craniocaudal dimension). There is are no aggressive features such as high-grade endosteal scalloping, periosteal reaction, or full-thickness cortical breakthrough. No soft tissue component is evident. No visible aggressive osseous lesions on this exam. Small bone islands are present of the distal femur. Likely tug/traction lesion of the posterior cortex of the proximal tibia. Habv-al-rsuggjga tricompartmental joint space narrowing with marginal osteophyte formation and chondrocalcinosis. Moderate volume effusion. Tiny popliteal cyst centrally. Slight lateral subluxation of the patella noted, likely pseudosubluxation given sizable joint effusion. Visible tendons appear grossly intact. Ligaments are poorly evaluated on this examination. Multifocal areas atrophy are noted of the medial aspect of the soleus muscle.. There is also mild to moderate gluteus medius and minimus atrophy. Provided images of the left hip exhibit prominent marginal osteophyte formation subchondral cyst of the hip. No visible aggressive osseous lesions or acute osseous abnormality. Surgical changes are noted of the lower midline abdominal wall. Prominent colonic diverticulosis noted without evidence of acute diverticulitis. Provided images of the ankle exhibit no acute osseous abnormalities or aggressive osseous lesions. Partially visible hindfoot and midfoot degenerative changes. Dorsal subcutaneous edema of the foot is also partially visible. IMPRESSION: 1. No acute osseous abnormalities. 2. Nonaggressive lesion of the proximal tibia which favors a fibrous or less likely osseous lesion, as detailed above. 3. Htqv-lv-pysgdckb tricompartmental degenerative change with chondrocalcinosis. Moderate volume effusion. 4. 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 Interpreted by: Vasquez Chandra DO Preliminary Report By: Vasquez Chandra DO Electronically signed By Vasquez Chandra DO Dictated Date: 10/15/2022 11:40:05 AM Prelim Date: 10/15/2022 11:48:38 AM Sign Date: 10/15/2022 11:48:38 AM Ordering Provider: [facility]11-24-2022 Note HNO ID: [id number] Author: Yadira Israel APRN.COLT Service: ? Author Type: Nurse Practitioner Type: Progress Notes Filed: 09/02/2022 11:19 AM Note Text: Patient came in with complaints of a discomfort in the front middle chest when taking a deep breath in. Recently had covid and paxlovid. Said he feels extremely tired. And still has a cough. Also said his pulse oxygen level was fluctuating from 91-98 percent at home. No testing available on the holiday here. Patient was sent to ER for full testing and was okay with this care plan.[facility]11-24-2022 History of Present illness Narrative* Yadira Israel APRN.SPRAY I PAINTER - 09/02/2022 11:10 AM EST Patient came in with complaints of a discomfort in the front middle chest when taking a deep breathin. Recently had covid and paxlovid. Said he feels extremely tired. And still has a cough. Also said his pulse oxygen level was fluctuating from 91-98 percent at home. No testing available on the holiday here. Patient was sent to ER for full testing and was okay with this care plan. [facility] History of Past illness Narrative* Problem Noted Date Resolved Date BMI 33.0-33.9,adult 11/03/2015 08/18/2017 Arthritis of wrist, right 12/05/20142015 Heme positive stool 11/05/2013 10/26/2019 BMI 30.0-30.9,adult 10/31/2013 08/18/2017 Actinic Keratoses: Premalignant AK's 09/22/2011 11/03/2015 Other Seborrheic Keratoses 09/22/201111/03 Solar Lentigines 09/22/2011 11/03/2015 Xerosis cutis 09/22/2011 11/03/2015 Surgical Scar of skin: L forearm 09/22/2011 11/03/2015 Hyperglycemia 12/19/2009 11/03/2015 OVERWEIGHT 12/17/2008 11/03/2015 Other and unspecified hyperlipidemia 12/17/2008 06/22/2012 documented as of this encounter (statuses as of 09/02/2022) [facility] No data available for this section [facility] Evaluation note* Diagnosis Onset Date Resolution Status Actinic keratoses chronic Bilateral primary osteoarthritis of knee chronic Essential hypertension chron ic Abnormal EKG acute Essential hypertension chron ic Traumatic loss of toenail of left great toe acute Bilateral primary osteoarthritis of knee chronic Essential hypertension chron [facility] Work Phone: Evaluation note* Diagnosis Pleuritic pain- Primary Painful respiration [facility] Diagnosis Onset Date Resolution Status COVID-19 acute Dilated aortic root acute Elevated LFTs acute Actinic keratoses chronic Essential hypertension [facility] Work Phone: Evaluation note* Diagnosis Onset Date Resolution Status COVID-19 acute Dilated aortic root acute Elevated LFTs acute Actinic keratoses chronic Essential hypertension chron ic Dilated aortic root acute Essential hypertension chron [facility] Work Phone: Evaluation note* Diagnosis Onset Date Resolution Status Dilated aortic root acute Essential hypertension chron ic Acute bronchitis acute [facility] Work Phone: Evaluation note* Diagnosis Right foot pain- Primary Pain in soft tissues of limb documented in this encounter [facility]* Diagnosis Leg length discrepancy Unequal leg length (acquired) documented in this encounter [facility]* Diagnosis Right foot pain Pain in soft tissues of limb [facility] noteNo assessment information availableW[facility] Work Phone: Evaluation note* Diagnosis Lumbar strain, initial encounter- Primary [facility] No data available for this section [facility] Progress note No data available for this section [facility] Reason for referral (narrative)* Consultation (Routine) - Pending Review Specialty Diagnoses / Procedures Referred By Maryan pickett Referred To Contact Orthotics Diagnoses Leg length discrepancy Bryson Ayala MD 1 [facility] [address] [place] [id number] Referral ID Status Reason Start Date Expiration Date Visits Requested Visits Authorized [id number] Pending Review Specialty Services Required 03/23/2024 03/23/2025 1 1 [facility] for referral (narrative)No reason for referral information availableWOhioHealth [facility] Work Phone: Summary Purpose Family History No Family History Records Found Relationship Condition Age at Onset Recorded Date/T chay mother Hypertension Unknown father Malignant neoplasm Unknown brother Malignant neoplasm Unknown sister Hypertension Unknown Advance Directives No Advanced Directives Records Found Advance Directive Response Recorded Date/ Time Living Will Yes January 11, 2022 11:10am Power of Telegraph Repeater Technician Yes January 11 11:10am Documents on File Type Date Recorded Patient Exhibits Coordinator Expl anation Advance Directive(s) 12/29/2016 5:53 AM Advance Directive(s) 12/29/2016 4:19 PM Advance Directive Response Recorded Date/ Time Living Will Yes September 06 8:05am Power of Telegraph Repeater Technician Yes September 06, 2022 8:05am Name of Medical Power of Telegraph Repeater Technician family September 02, 2022 11:25am Advance Directive Response Recorded Date/ Time Living Will Yes June 14 023 8:07am Power of Telegraph Repeater Technician Yes June 14, 2023 8:07am Advance Directive Response Recorded Date/ Time Living Will Yes June 14 023 9:07am Do you have a Healthcare Power of Telegraph Repeater Technician? Yes June 14, 2023 9:07am Chief Complaint and Reason for Visit Chief Complaint check up SURGERY CLEARANCE-WE HAVE FORM PRE OP EVAL TORE TOE NAIL, DISCUSS KNEE REPLACEMENT Reason for Visit Actinic keratoses Bilateral primary osteoarthritis of knee Essential hypertension Abnormal EKG Essential hypertension Traumatic loss of toenail of left great toe Bilateral primary osteoarthritis of knee Essential hypertension Chief Complaint ENCOUNTER FOR PREPRO CEDURAL CAREDIOVASCULAR EXAMIN COVID +, NOWCLINIC REFERRED PT TO PRIMARY CARE tired, weak, chest tightness, cough [facility] ER FU E ORDER Reason for Visit COVID-19 Dilated aortic root Elevated LFTs Actinic keratoses Essential hypertension Chief Complaint ENCOUNTER FOR PREPRO CEDURAL CAREDIOVASCULAR EXAMIN COVID +, NOWCLINIC REFERRED PT TO PRIMARY CARE tired, weak, chest tightness, cough [facility] ER FU E ORDER BLADDER WALL THICKENING Reason for Visit COVID-19 Dilated aortic root Elevated LFTs Actinic keratoses Essential hypertension Chief Complaint ENCOUNTER FOR PREPRO CEDURAL CAREDIOVASCULAR EXAMIN COVID +, NOWCLINIC REFERRED PT TO PRIMARY CARE tired, weak, chest tightness, cough [facility] ER FU E ORDER BLADDER WALL THICKENING Thoracic Aortic Ectasia PRE OP Reason for Visit COVID-19 Dilated aortic root Elevated LFTs Actinic keratoses Essential hypertension Dilated aortic root Essential hypertension Chief Complaint 10 m fu CONGESTED Reason for Visit Dilated aortic root Essential hypertension Acute bronchitis Chief Complaint Admit Date 1 Y FU November 08, 2024 1 :02pm Reason for Visit Admit Date Dilated aortic root November 08, 2024 1 :02pm Essential hypertension November 08 1:02pm Additional Source Comments (unrecognized sect ion and content) No Status Records FoundNo Status Records FoundNo Status Records FoundNo Status Records FoundNo Status Records FoundNo Status Records Found INFORMATION SOURCE (unrecogn ized section and content) DATE CREATED AUTHOR 11/12/2019 [facility] DATE CREATED AUTHOR AUTHOR'S ORGANIZ ATION 09/02/2022 [facility] DATE CREATED AUTHOR AUTHOR'S ORGANIZ ATION 05/26/2024 [facility] ([place]) DATE CREATED AUTHOR AUTHOR'S ORGANIZ ATION 07/20/2025 [facility] DATE CREATED AUTHOR AUTHOR'S ORGANIZ ATION 08/17/2025 [facility] DATE CREATED AUTHOR AUTHOR'S ORGANIZ ATION 08/18/2025 [facility] Goals (unrecognized section and content) Goals may be documented in a n alternate section Care Team (unrecognized sect ion and content) Care Team Personnel Name: GENARO POWERS MD Member Role: Primary Care Physician Address: Address: [address] [place] [address]- Care Team Personnel Name: GENARO POWERS MD Member Role: Primary Care Physician Address: Address: [address] Source Comments (unrecognize d section and content) In the event this informatio n is protected by the Federal Confidentiality of Alcohol and Drug Abuse Patient Records regulations: The Federal rules restrict any use of the information to criminally investigate or prosecute any alcohol or drug abuse patient.[facility] Reason for Visit (unrecogniz ed section and content) Reason Comments Shortness of Breath Had covid a week ago , having lasting breathing issues Reason Comments New Patient R foot pain Specialty Diagnoses / Procedures Referred By Maryan pickett Referred To Contact Diagnoses right foot pain Procedures [place] OFFICE/OUTPATIENT NEW MODERATE MDM 45 MINUTES Quinton Stallworth MD [address] [facility] [address] [place] [address] Bryson Ayala MD 1 [facility] [address] [place] [id number] Referral ID Status Reason Start Date Expiration Date V isits Requested Visits Authorized [id number] Pending Review 02/17/2024 02/16/2025 1 1 Reason Comments Back Pain Back pain started 4 days ago, denies issues voiding. Care Teams (unrecognized sec tion and content) Environmental Science Technician Relationship Specialty Start Date End Date Edy Lawton MD [address] [facility] [place] [address] PCP - General Internal Medicine 09/02/22 Team Status: Active Member Role Status Dates Dr. Raquel Estrada MD Family Provider Active Dr. Edy Lawton MD Primary Care Provider Active Team Status: Inactive Member Role Status Dates Dr. Edy Lawton MD Primary Care Provider, Referri ng Provider Active Gurmeet Preciado BALL MILL OPERATOR, BALL MILL OPERATOR-C Attending Provider Active Team Status: Inactive Member Role Status Dates Dr. Edy Lawton MD Primary Care Provider, Attendi ng Provider Active Team Status: Inactive Member Role Status Dates Dr. Edy Lawton MD Primary Care Provider, Referri ng Provider Active Dr. Orlando Mora MD Attending Provider Active Team Status: Inactive Member Role Status Dates Dr. Edy Lawton MD Primary Care Provider Active Dr. Michael Anderson MD Attending Provider Active Team Status: Inactive Member Role Status Dates Dr. Edy Lawton MD Primary Care Provider Active Dr. Constantino Silva DO Attending Provider, Emergency Provider Active Team Status: Inactive Member Role Status Dates Dr. Edy Lawton MD Primary Care Pro vider, Attending Provider, Referring Provider Active Team Status: Inactive Member Role Status Dates Dr. Edy Lawton MD Primary Care Provider Active Chanel DYE, PA Attending Provider, Referring Pr ovider Active Dr. Michael Anderson MD Other Provider Active Team Status: Inactive Member Role Status Dates Dr. Edy Lawton MD Primary Care Provider, Referri ng Provider Active Fabián Melara BALL MILL OPERATOR, BALL MILL OPERATOR-C Attending Provider Active Team Status: Inactive Member Role Status Dates Dr. Edy Lawton MD Primary Care Provider, Referri ng Provider Active Jose DYE, PA Attending Provider Active Team Status: Inactive Member Role Status Dates Dr. Edy Lawton MD Primary Care Provider Active Dr. Fabián Kirkland MD Attending Provider Active Environmental Science Technician Relationship Specialty Start Date End Date Fabián Kirkland MD [address] [facility] [address] [place] [id number] PCP - General Family Medicine 03/20/24 Environmental Science Technician Relationship Specialty Start Date End Date Fabián Kirkland MD [address] [facility] [address] [place] [phone] PCP - General Family Medicine 03/20/24 Team Status: Active Member Role Status Dates Dr. Fabián Kirkland MD Primary Care Provider Active Team Status: Inactive Member Role Status Dates Dr. Edy Lawton MD Referring Provider Active Start: November 08, 2024 End: November 08, 2024 Dr. Orlando Mora MD Attending Provider Active S tart: November 08, 2024 End: November 08, 2024 Dr. Fabián Kirkland MD Primary Care Provider Active Start: November 08, 2024 End: November 08, 2024 Team Status: Inactive Member Role Status Dates Dr. Fabián Kirkland MD Primary Care Provider Active Start: February 26, 2025 End: February 26, 2025 Dr. Fabián Kirkland MD Attending Provider Active Start: February 26, 2025 End: February 26, 2025 Dr. Fabián Kirkland MD Referring Provider Active Start: February 26, 2025 End: February 26, 2025 Team Status: Active Member Role/Relationship Status Dates Dr. Fabián Kirkland MD Primary Care Provider Active Team Status: Inactive Member Role/Relationship Status Dates Dr. Fabián Kirkland MD Primary Care Provider Active Start: February 26, 2025 End: February 26, 2025 Dr. Fabián Kirkland MD Attending Provider Active Start: February 26, 2025 End: February 26, 2025 Dr. Fabián Kirkland MD Referring Provider Active Start: February 26, 2025 End: February 26, 2025 Team Status: Inactive Member Role/Relationship Status Dates Dr. Fabián Kirkland MD Primary Care Provider Active Start: May 10, 2025 End: May 10, 2025 Saulo DYE PA-C Attending Provider Active Start: May 10, 2025 End: May 10, 2025 Ray Refugio DYE PA-C Referring Provider Active Start: May 10, 2025 End: May 10, 2025 Team Status: Active Member Role/Relationship Status Dates Dr. Fabián Kirkland MD Primary care physician Active Team Status: Inactive Member Role/Relationship Status Dates Dr. Fabián Kirkland MD Primary care physician Active Start: May 10, 2025 End: May 10, 2025 Saulo DYE PA-C Attending physician Active Start: May 10, 2025 End: May 10, 2025 Saulo DYE PA-C Referring Provider Active Start: May 10, 2025 End: May 10, 2025 Team Status: Inactive Member Role/Relationship Status Dates Dr. Fabián Kirkland MD Primary care physician Active Start: June 11, 2025 End: June 11, 2025 Dr. Fabián Kirkland MD Attending physician Active Start: June 11, 2025 End: June 11, 2025 Dr. Fabián Kirkland MD Referring Provider Active Start: June 11, 2025 End: June 11, 2025 Environmental Science Technician Relationship Specialty Start Date End Date Fabián Kirkland MD [address] [place] [phone] PCP - General Family Medicine 03/20/24 Scheduled Active and Recently Administ ered Medications (unrecognized section and content) Medication Order 07/15/2025 07/16/2025 07/17/2025 morphine injection 4 mg 4 mg, IntraVENous, Once, On Tue07/17/25 at 1655, For 1 dose, If oral and injectable narcotics ordered, use oral first and only use injectable if oral is ineffective or cannot take oral. Do Not give oral and injectable within 1 hour of each other unless specifically ordered. 1659 (Not Given - Pr ovider: Antonella Leonard RN - Reason: Other - Comment: wants to hold off for now) FOR RECORDS PERTAINING TO PATIENTS WHO ARE OR HAVE BEEN ENROLLED IN A CHEMICAL DEPENDENCY/SUBSTANCEABUSE PROGRAM, SOME INFORMATION MAY BE OMITTED. This clinical summary was aggregated from multiple sources. Caution should be exercised in using it in the provision of clinical care. This summary normalizes information from multiple sources, and as a consequence, information in this document may materially change the coding, format and clinical context of patient data. In addition, data may be omitted in some cases. CLINICAL DECISIONS SHOULD BE BASED ON THE PRIMARY CLINICAL RECORDS. [employer] provides no warranty or guarantee of the accuracy or completeness of information in this document.
[2025-09-19 18:30] LABS: CRP < 3.00 mg/L (0.0-3.0)
[2025-09-19 19:16] LABS: Hematocrit 41.6 % (40-54); Hemoglobin 13.5 g/dL (13.0-16.5); Immature Granulocytes Count 0.030 X10^3/uL (0.0-0.0); Mean Corp Hgb Conc 32.5 g/dL (32-36); Mean Corpuscular Volume 89.5 fL (80-94); Mean Platelet Vol. 10.2 fl (6.2-12.0); NRBC Flagged by Analyzer 0 % (0-5); Platelet Count 234 K/mm3 (150-450); RBC Distribution Width CV 13.1 % (11.6-14.6); RBC Distribution Width SD 42.5 fl (35.1-43.9); Red Blood Count 4.65 M/mm3 (4.6-6.2); White Blood Count 6.9 K/mm3 (4.4-11.0)
== END | disposition home or self-care (01) ==
LOC: MTLAB 15:37
PROVIDERS: PCP Family Medicine; Referring Provider Nurse Practitioner Family; Visit Provider Nurse Practitioner Family
DX: M25.562 Pain in left knee (principal); Z96.652 Presence of left artificial knee joint
CPT/HCPCS: 36415; 85025; 85652; 86140